=== PATIENT | female | born 1950 | race Caucasian/White ===

== ENCOUNTER 2016-03-30 11:02 | Inpatient (IN) | payer OTHER ==
[2016-03-30] MEDS ORDERED: FAMOTIDINE 20 MG/NACL 50 ML IV ONE (11:20)
[2016-03-30] MEDS ORDERED: NS 1,000 ML IV ONE (11:20)
[2016-03-30] MEDS ORDERED: ONDANSETRON 4 MG/2 ML VIAL IVP ONE (11:20)
[2016-03-30 11:25] LABS: % IMMATURE GRANULYOCYTES 0.4 % (0.0-1.1); ABSOLUTE IMMATURE GRANULOCYTES 0.03 10^3/uL (0.00-0.10); ADD DIFF? NO; ADD MORPH? NO; ADD SCAN? NO; ATYPICAL LYMPHOCYTE FLAG 0 (0-99); FRAGMENT RBC FLAG 0 (0-99); HEMATOCRIT 46.3 % (38.0-47.0); HEMOGLOBIN 15.1 g/dL (12.6-16.3); LEFT SHIFT FLG 0 (0-99); LIPEMIA HEMOLYSIS FLAG 80 (0-99); MEAN CELL HEMOGLOBIN 29.4 pg (27.9-34.1); MEAN CELL HEMOGLOBIN CONCENTR. 32.6 g/dL (32.4-36.7); MEAN CELL VOLUME 90.1 fL (81.5-99.8); MEAN PLATELET VOLUME 10.2 fL (8.7-11.7); PLATELET CLUMPS FLAG 10 (0-99); PLATELET COUNT 233 10^3/uL (150-400); RED BLOOD CELL COUNT 5.14 10^6/uL (4.18-5.33); RED CELL DISTRIBUTION WIDTH 12.6 % (11.5-15.2)
[2016-03-30 11:37] LABS: ALANINE AMINOTRANSFERASE 35 IU/L (9-52); ALBUMIN 4.1 g/dL (3.5-5.0); ALKALINE PHOSPHATASE 99 IU/L (38-126); ANION GAP 15 mEq/L (8-16); ASPARTATE AMINOTRANSFERASE 26 IU/L (14-46); BILIRUBIN,TOTAL 0.9 mg/dL (0.1-1.4); BILIRUBIN-CONJUGATED 0.5 mg/dL (0.0-0.5); BILIRUBIN-UNCONJUGATED 0.4 mg/dL (0.0-1.1); CARBON DIOXIDE 28 mEq/l (22-31); CHLORIDE 99 mEq/L (97-110); CREATININE 0.8 mg/dL (0.6-1.0); GLOMERULAR FILTRATION RATE > 60; GLUCOSE 93 mg/dL (70-100); POTASSIUM 4.3 mEq/L (3.5-5.2); SODIUM 142 mEq/L (134-144); TOTAL PROTEIN 6.3 g/dL (6.3-8.2)
[2016-03-30] MEDS ORDERED: IOPAMIDOL (ISOVUE-300) 50 ML VIAL IV ONE (11:51)
--- NOTE | 2016-03-30 11:53 | EDPHY ---
H & P Time Seen by Provider: 03/30/16 11:18 HPI/ROS: HPI Vomiting, abdominal discomfort. 65-year-old female by private vehicle with her . This patient reports that 2 weeks ago she had a gastrointestinal illness which included nausea and vomiting as well as watery diarrhea for several days. She reports that most of her family members had this illness. She then started getting better. However , several days ago she developed nausea again and started vomiting after eating. She has since this time had ongoing nausea with vomiting and has not been able to keep any food down. She denies having any significant abdominal pain but describes feeling bloated and distended in her abdomen. She did have a normal bowel movement this morning. No diarrhea. No bloody or melenic stool. Describes the vomit as nonbilious and nonbloody. Prior abdominal surgical history is significant for cholecystectomy. ROS: Constitutional: No fever, no chills. No weakness. Eyes: No discharge. No changes in vision. ENT: No sore throat. No nasal congestion or rhinorrhea. Respiratory: No cough. No shortness of breath. Cardiac: No chest pain, no palpitations. Gastrointestinal: No abdominal pain, no vomiting, no diarrhea. Genitourinary: No hematuria. No dysuria or increased frequency with urination. Musculoskeletal: No back pain. No neck pain. No myalgias or arthralgias. Skin: No rashes. Neurological: No headache. No focal weakness or altered sensation. Past medical history: Melanoma, lymph node removal, cholecystectomy. Social history: Here with her . Physical Exam: General Appearance: Alert, no distress. This patient is responding to questions appropriately and in full sentences. This patient appears well- hydrated and well-nourished. Eyes: Pupils equal and round no pallor or injection. No lid edema, erythema or injection. Respiratory: There are no retractions, lungs are clear to auscultation with good air movement bilaterally. Cardiovascular: Regular rate and rhythm. No murmur. Gastrointestinal: Abdomen is feels distended but without significant tenderness on palpation, no masses, bowel sounds present. No focal tenderness at McBurney's point. No Smith sign. Neurological: Motor sensory function is grossly intact. Cranial nerves are normal. Gait is normal. Skin: Warm and dry, no rashes. Musculoskeletal: Neck is supple and nontender. Extremities are symmetrical. All joints range without pain or impingement. Psychiatric: No agitation. No depression. Database: EKG: Imaging: CT scan of abdomen and pelvis with IV contrast: Significant for a large pelvic mass which appears to be ovarian cancer measuring 22 cm x 19 cm x 14 cm. There is metastasis throughout. Results were discussed with staff radiologist Dr. Efrain Miller. Procedures: Emergency department course: IV placed. She was placed on a lines tender. She was started on IV normal saline with 500 cc to be given over the next hour. She was initially given 4 mg of IV Zofran and 20 mg of IV Pepcid for nausea. I discussed the possibility of obstruction. I discussed CT imaging with her. She endorses this plan. She will be sent for CT imaging shortly. 12:45 p.m., re-evaluated patient. Results of CT scan discussed with the patient. Probable diagnosis discussed. I discussed admission for IV fluids, antiemetics and oncology consultation. She and her endorse. 12:50 p.m., spoke with Dr. Baltazar of the Oncology Service. He or 1 of his partners will consult on this patient after she is admitted. He explained to me that she may require transfer to [facility] for a gynecologic oncological surgeon. 12:55 p.m. spoke with hospitalist., Dr. Thomas, she accepts patient for admission to Dr. Juliette Spaulding. Patient admitted to [address] [place] [address] in stable condition. Differential Diagnosis: The differential diagnosis on this patient includes but is not limited to gastritis, enteritis, bowel obstruction. This represents a partial list of diagnoses considered. These considerations are based on history, physical exam , past history, reassessment and diagnostic testing. Smoking Status: Never smoked Constitutional: Initial Vital Signs Temperature (C) 36.6 C 03/30/16 11:04 Heart Rate 104 H 03/30/16 11:04 Respiratory Rate 18 03/30/16 11:04 Blood Pressure 174/99 H 03/30/16 11:04 O2 Sat (%) 99 03/30/16 11:04 O2 Delivery Mode Room Air Allergies/Adverse Reactions: amoxicillin [Amoxicillin] Allergy (Mild, Verified 02/21/10 13:48) Rash Home Medications: Medication Instructions Recorded NK [No Known Home Meds] 03/30/16 Medical Decision Making - Data Points Laboratory Results: Laboratory Results 03/30/16 11:15 03/30/16 11:15 Microbiology Results: MICROBIOLOGY 03/30/16 22:54 Urine,Clean Catch Urine Culture - Final Five Or More [place] Types Medications Given: Discontinued Medications Sodium Chloride (Ns) 1,000 mls @ 0 mls/hr IV ONCE ONE PRN Reason: Wide Open Stop: 03/30/16 11:21 Last Admin: 03/30/16 11:20 Dose: 1,000 mls Famotidine/Sodium Chloride (Pepcid 20 Mg (Premix)) 50 mls @ 200 mls/hr IV EDNOW ONE Stop: 03/30/16 11:34 Last Admin: 03/30/16 11:42 Dose: 50 mls Ertapenem 1 gm/ Sodium (Chloride) 100 mls @ 200 mls/hr IV ONCALL ONE PRN Reason: Protocol Stop: 04/01/16 06:29 Last Admin: 04/01/16 05:34 Dose: 100 mls Ketorolac Tromethamine (Toradol) 15 mg IVP Q6 HARSHAD Stop: 04/02/16 06:01 Last Admin: 04/02/16 06:20 Dose: 15 mg Ondansetron HCl (Zofran) 4 mg IVP EDNOW ONE Stop: 03/30/16 11:21 Last Admin: 03/30/16 11:43 Dose: 4 mg Departure - Departure Disposition: [facility] Acute Clinical Impression: Vomiting, Abdominal discomfort, Pelvic mass in female, Probable ovarian cancer with metastasis Condition: Fair
--- NOTE | 2016-03-30 12:40 | CT ---
CT Scan of the Abdomen and Pelvis (With Contrast) at 1204 hours History: Abdominal pain, nausea, vomiting. History of melanoma. Technique: Axial computed tomographic images of the abdomen and pelvis were obtained with the unevent ful intravenous administration of 90 mL Isovue-300 contrast. No oral or rectal contrast, which limits the study. Dose reduction techniques were utilized. CT Abdomen Findings: Lung bases: Bilateral lung bases demonstrate multiple diffuse pulmonary nodules greater than 20 total just at the lung bases, consistent with metastasis. Liver: Multiple hepatic metastasis throughout the right and left lobes, with the largest in the right lobe measuring 4.3 x 2 cm. Biliary system: No obstruction. Spleen: Several splenic masses, consistent with metastasis, with the largest measuring 3 x 3 cm. Pancreas: Normal. Adrenals: Bilateral adrenal masses, consistent with metastasis. Right adrenal mass measures 5.1 x 5 c m and left measures 5.6 x 4 cm. Kidneys: No obstruction or solid masses. Abdominal Aorta: No aneurysm. No significant adenopathy. No bowel obstruction. CT Pelvis Findings: Complex pelvic mass measuring 22.3 x 14.5 cm in axial dimension and 19 cm in ceph alocaudal dimension with septations and several mural nodules measuring up to 5.6 x 1.8 cm, consisten t with cystadenocarcinoma. No ascites. Multiple uterine leiomyomata identified measuring up to 2.2 x 2.1 cm. No definite osseous metastasis. Impression: 1. Complex pelvic mass measuring 22.3 x 14.5 x 19 cm, consistent with cystadenocarcinoma. 2. Multiple diffuse pulmonary metastasis, hepatic metastasis, splenic metastasis, and bilateral adren al metastasis with a differential diagnosis of ovarian carcinoma metastasis versus melanoma metastasi s. 3. No ascites. Findings and recommendations discussed with Emergency Department physician, Dr. Avila Barbosa, at 1230 hours today. Final report concurs with initial preliminary interpretation. A test result has been communicated to a licensed care provider and documented in [employer], 12:36:11 P M, 03/30/2016, [employer] Message ID [id number].
[2016-03-30] MEDS ORDERED: ACETAMINOPHEN 325 MG TAB PO PRN (15:52)
[2016-03-30] MEDS ORDERED: PROMETHAZINE HCL 25 MG TAB PO PRN (15:52)
--- NOTE | 2016-03-30 16:35 | GHP ---
[f rep st] HISTORY AND PHYSICAL DATE OF ADMISSION: 03/30/2016 CHIEF COMPLAINT: Nausea, vomiting. HISTORY OF PRESENT ILLNESS: The patient is a very nice 65-year-old with a history significant for melanoma. She was diagnosed 7 years ago in her right calf, had excisional treatment, noted some recurrence in her lymph nodes in her right groin and underwent a month of interferon. She had been followed by Dr. Colunga, but since then, has been in remission. Over [place], she developed nausea, vomiting, diarrhea. Her whole family was sick with what sounds like a gastroenteritis. Despite her family all recovering , she continued to feel poorly. She said that she has had ongoing nausea, vomiting, poor appetite and some fatigue. She started to feel a little better and then got worse again, a little better, it got worse. Last night, she had another episode of nausea and vomiting and opted to come in this morning for further evaluation and treatment. She denies fevers, chills. She has had no cough, shortness of breath. No significant abdominal pain except when she is actively vomiting. No diarrhea. No urinary complaints. No weight changes. Prior to , she said she was feeling well and had no abdominal complaints. REVIEW OF SYSTEMS: A 10-point review of systems was done and is negative except as stated in the HPI. PAST SOCIAL HISTORY: Melanoma, cholecystectomy. SOCIAL HISTORY: She is . No known tobacco or alcohol use. FAMILY HISTORY: Mother had cancer, 2 cousins with cancer. She does not recall what kind. MEDICATIONS: None. ALLERGIES: Amoxicillin. PHYSICAL EXAMINATION: VITAL SIGNS: She is afebrile. Heart rate 90, blood pressure 147/78, respirations 18, she is 92% on room air. GENERAL: She is a very pleasant, 65-year-old woman in no distress. She is alert and oriented. Her speech is clear and fluent. HEENT: Scalp is atraumatic. Pupils equal. Extraocular movements intact. Mucous membranes are slightly dry. Oropharynx clear. NECK: Supple. No adenopathy. HEART: Regular rate and rhythm. No murmurs, gallops, or rubs. LUNGS: Clear to auscultation. No wheezes, rhonchi , or rales. ABDOMEN: Slightly distended. No tenderness. Some firmness in her pelvic area, but no obvious masses. Positive bowel sounds. EXTREMITIES: No clubbing, cyanosis, or edema. She does have a scar in her right calf area where her melanoma was previously excised. MUSCULOSKELETAL: No joint effusions or deformities. SKIN: Intact, no rash. NEUROLOGIC: She is intact. LABORATORY DATA: CBC and chemistries are all within normal limits. LFTs are normal. Abdominal CT scan: Complex pelvic mass measuring 22 x 14 x 19 cm consistent with cysto adenocarcinoma with multiple diffuse pulmonary metastases , hepatic metastases, splenic metastases and bilateral adrenal metastases. Differential diagnosis is ovarian carcinoma versus melanoma. ASSESSMENT/PLAN: A 65-year-old with a previous history of melanoma presents with large pelvic mass and metastatic disease. She is being admitted for control of her nausea and vomiting. 1. Nausea, vomiting. Will admit for symptomatic control. Give IV fluids. Advance her diet as tolerated. Antiemetics as needed. She really has no abdominal pain at this time, but will make pain medications available if needed. 2. Large pelvic mass with metastatic disease. Differential includes likely ovarian primary versus recurrent melanoma. We will discuss with Dr. Baltazar. Will check a CA-125. If that is significantly elevated, would likely discharge and have her follow up with a gynecology oncologist in [place] versus biopsy for possible recurrent melanoma. 3. Deep venous thrombosis prophylaxis. Patient is under observation here. Certainly if she has an extended stay, will start her on low-molecular heparin. In the meantime, will hold prophylaxis in case she needs a biopsy. /[id number]/MODL MTDD
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
[2016-03-30] MEDS: NS 1,000 ML IV SCH (22:01)
[2016-03-30 22:45] LABS: COLOR AMBER; LEUKOCYTE ESTERASE,URINE 2+ (NEGATIVE); NITRITE,URINE NEGATIVE (NEGATIVE)
[2016-03-30 22:50] LABS: MUCUS TRACE /lpf (NONE-1+); RBC,URINE 50-182 /hpf (0-3); WBC,URINE 50-182 /hpf (0-3)
[2016-03-31 06:18] LABS: LACTATE DEHYDROGENASE 1203 IU/L (313-618)
[2016-03-31] MEDS: ONDANSETRON DISINTEGRATING 4 MG TAB PO PRN ×4 (06:27→22:32)
--- NOTE | 2016-03-31 06:51 | SOAPPROG ---
[facility] Progress Note Assessment/Plan: Assessment: 1.) Hx. of Malignant Melanoma, 09/2008, [id number], S/P R inguinal Lymphadenectomy, S/P brief adjuvant high dose SQ Interferon therapy ( 1 month). 2.) Multiple lung, liver, adrenal mets, with intra-abdominal lymphadenopathy and large cystic pelvic mass with high LDH and low Ca-125: This most certainly looks like recurrent, widely disseminated melanoma. Pt. needs tissue biopsy and studies for laundry route driver mutations on sample obtained. She is a good candidate for CT guided liver bx. or Adrenal bx. as discussed with Kristen this AM. She also needs Brain MRI with and without contrast as part of her metastatic work up. Plan: 1. ) Biopsy as noted above. Could also have surgical bx. as another option. 2.) Will order brain MRI today 3.) Following biopsy, pt. could go home, awaiting bx. results if she is taking in adequate fluids/calories as d/w patient this AM. 03/31/16 06:51 Subjective: Stable overnight, without new sx. Objective: VSS, Afebrile overnight HEENT- anicteric, no oral lesions. Neck- supple Chest- clear CVS- RSR, no extra HS ABD- soft, not, mild distention in lower abdomen at midline EXT- R leg Lymphadenectomy site is unremarkable, without new lymphadenopathy, No suspicious lesions on RLE Lab data: CA 125 18 LDH > 1200 Vital Signs Temp Pulse Resp BP Pulse Ox 36.8 C 79 14 156/82 H 91 L 03/31/16 04:27 03/31/16 04:27 03/31/16 04:27 03/31/16 04:27 03/31/16 04:27 03/30/16 03/31/16 04/01/16 05:59 05:59 05:59 Intake Total 1722 Output Total 225 Balance 1497 ICD10 Worksheet Patient Problems: Problems Problem Status Diagnosed Abdominal discomfort Acute Pelvic mass in female Acute Vomiting Acute
--- NOTE | 2016-03-31 08:48 | SOAPPROG ---
SOAP Progress Note Assessment/Plan: Assessment/Plan: 65 Y F c hx of melanoma and wide excision with R groin LN dissection, now with multiple masses on imaging--large pelvic mass, multiple hepatic, splenic, adrenal, and pulmonary masses. Does not appear to be obstructed. Seen and examined with Dr. Alicea and d/w'ed medicine and oncology. Plan for ex- laparoscopy with biopsy, possible laparotomy, possible excision of pelvic mass tomorrow. Awaiting OR time. NPO p midnight. Pre op Invanz ordered. Hold any chemical VTE ppx. Consent in chart. Risks and options discussed and she requests to proceed. 03/31/16 08:44 Subjective: [place] flu like symptoms that lasted too long. Comfortable now and eating breakfast. Objective: Vital Signs Temp Pulse Resp BP Pulse Ox 36.7 C 90 16 146/84 H 91 L 03/31/16 08:17 03/31/16 08:17 03/31/16 08:17 03/31/16 08:17 03/31/16 08:17 03/30/16 03/31/16 04/01/16 05:59 05:59 05:59 Intake Total 1722 Output Total 225 50 Balance 1497 -50 alert, nad mmm no jaundice no wob abd soft, large palpable mass ICD10 Worksheet Patient Problems: Problems Problem Status Diagnosed Abdominal discomfort Acute Pelvic mass in female Acute Vomiting Acute
[2016-03-31] MEDS ORDERED: GADOBUTROL 10 ML VIAL IVP ONE (08:53)
[2016-03-31] MEDS: ONDANSETRON 4 MG/2 ML VIAL IVP PRN (10:47)
--- NOTE | 2016-03-31 11:04 | HOSPPROG ---
Hospitalist Progress Note Assessment/Plan: 65-year-old woman with a history of melanoma remotely presents with abdominal pain and found to have a large pelvic mass with diffuse metastatic disease noted on her CT scan. # metastatic cancer most likely etiology is metastatic melanoma. * Discussed with Dr. Alicea who will proceed with biopsy confirmation * Discussed with Dr. Baltazar regarding further treatment options * Patient comfortable main complaint is poor appetite and some low-grade nausea Subjective: No new complaints. Still having some low-grade nausea and abdominal discomfort but able to eat a good breakfast today. Objective: Vital Signs Temp Pulse Resp BP Pulse Ox 36.7 C 90 16 146/84 H 91 L 03/31/16 08:17 03/31/16 08:17 03/31/16 08:17 03/31/16 08:17 03/31/16 08:17 03/30/16 03/31/16 04/01/16 05:59 05:59 05:59 Intake Total 1722 Output Total 225 50 Balance 1497 -50 - Physical Exam Constitutional: no apparent distress Eyes: PERRL Ears, Nose, Mouth, Throat: moist mucous membranes Cardiovascular: regular rate and rhythym, no murmur, rub, or gallop Respiratory: no respiratory distress, reduced air movement Gastrointestinal: normoactive bowel sounds, tenderness (Mild), No guarding, No rebound Neurologic: AAOx3 Psychiatric: interacting appropriately ICD10 Worksheet Patient Problems: Problems Problem Status Diagnosed Abdominal discomfort Acute Pelvic mass in female Acute Vomiting Acute
--- NOTE | 2016-03-31 11:12 | MR ---
MRI of the Brain (Without and With Contrast) 0901 hours Clinical Indication: Metastatic melanoma. Technique: T1-weighted images were acquired axially and sagittally from the foramen magnum to the ve rtex. Axial fast inversion recovery, fast T2-weighted, and diffusion-weighted axial images were obta ined without contrast. Postcontrast axial and coronal images with the uneventful intravenous administ ration of 8 mL Gadavist contrast. Findings: Throughout bilateral cerebral hemispheres, brainstem and bilateral cerebellar hemispheres, there are greater than 20 intraparenchymal metastatic lesions demonstrating hemosiderin consistent w ith melanoma metastases. The majority involve bilateral cerebral hemispheres. There is one metastasis in the right side of the adonis measuring 8 mm. A few metastases in bilateral cerebellar hemispheres. All of the lesions demonstrate hemosiderin compatible with melanoma. Several of the lesions demonstra te surrounding white matter edema. All of the lesions enhance on the postcontrast study. There is an additional 5 mm enhancing lesion in the left superior cerebellar peduncle. No acute infarct, midline shift, hydrocephalus, herniation, or epidural/subdural hematomas. Pituitary gland is normal in size. Cerebellar tonsils are in normal position. Normal flow voids of superior sa gittal sinus, basilar artery and bilateral internal carotid arteries indicating patency. Paranasal si nuses are clear. Orbits are unremarkable. Impression: 1. Diffuse bilateral cerebral, cerebellar, and adonis enhancing hemorrhagic melanoma metastasis, more t graham 20. 2. No hydrocephalus, herniation, or acute infarct. Findings and recommendations discussed with Dr. Juliette Spaulding at 1101 hours today. Final report concurs with initial preliminary interpretation.
[2016-03-31] MEDS: NS 1,000 ML IV SCH (13:30)
[2016-03-31] MEDS ORDERED: SIMETHICONE 80 MG TAB CHEW PO PRN (13:31)
[2016-04-01] MEDS: ONDANSETRON 4 MG/2 ML VIAL IVP PRN (05:34)
[2016-04-01] MEDS ORDERED: ERTAPENEM 1 GM in NS 100 ML IV ONE (06:00)
[2016-04-01] MEDS ORDERED: BUPIVACAINE 0.5% 30 ML SDV ONE (07:07)
[2016-04-01] MEDS ORDERED: HEPARIN 1000 UNIT/1 ML MDV ONE (07:07)
[2016-04-01] MEDS ORDERED: ceFAZolin 1 GM/5 ML SYR ONE (07:08)
[2016-04-01] MEDS ORDERED: LIDOCAINE 1% 5 ML SDV ONE (07:58)
[2016-04-01] MEDS ORDERED: MIDAZOLAM 2 MG/2 ML VIAL ONE (08:27)
[2016-04-01] MEDS ORDERED: PROPOFOL 200 MG/20 ML VIAL ONE (08:30)
[2016-04-01] MEDS ORDERED: fentaNYL 100 MCG/2 ML INJ ONE ×3 (08:30→10:10)
[2016-04-01] MEDS ORDERED: LIDOCAINE 2% 5 ML SDV ONE (08:34)
[2016-04-01] MEDS ORDERED: ROCURONIUM 100 MG/10 ML VIAL ONE (08:34)
[2016-04-01] MEDS ORDERED: DEXAMETHASONE 4 MG/ML VIAL ONE ×2 (08:34)
[2016-04-01] MEDS ORDERED: ONDANSETRON 4 MG/2 ML VIAL ONE (08:34)
[2016-04-01] MEDS ORDERED: PHENYLEPHRINE HCL 100 MCG/ML SYR ONE (09:04)
[2016-04-01] MEDS ORDERED: BUPIVACAINE 0.25% 30 ML SDV ONE (09:53)
[2016-04-01] MEDS ORDERED: SUGAMMADEX SODIUM 200 MG/2 ML VIAL IVP ONE (09:54)
[2016-04-01] MEDS ORDERED: KETOROLAC 30 MG/1 ML SDV ONE (10:00)
[2016-04-01] MEDS ORDERED: NARCOTIC DRIP BAG-TOTAL ALL TYPES EP PRN ×2 (10:49→10:58)
[2016-04-01] MEDS ORDERED: NALOXONE HCL 0.4 MG/ML INJ IVP PRN (10:49)
[2016-04-01] MEDS ORDERED: HYDROmorph 10MCG/ML&BUP 0.1% in 100ML NS EP SCH (10:49)
[2016-04-01] MEDS ORDERED: diphenhydrAMINE 25 MG CAP PO PRN (10:58)
[2016-04-01] MEDS ORDERED: ONDANSETRON 4 MG/2 ML VIAL IVP PRN (10:58)
--- NOTE | 2016-04-01 11:19 | POSTOPPROG ---
Post Op Note Date of Operation: 04/01/16 Surgeon: Shaun Alicea First Aid Director: Alessandra Puentes Anesthesiologist: Mir Brantley Anesthesia: GET(General Endotracheal) Pre-op Diagnosis: likely metastatic melanoma, pelvic mass Post-op Diagnosis: same, and R ovarian cyst with gross melanoma mets Procedure: ex-laparoscopy, laparotomy, c liver biopsy, R oopherectomy Findings: hepatic and peritoneal mets, loculated R ovarian cyst c mets, 3000cc Inf/Abcess present in the surg proc area at time of surgery?: No EBL: Minimal Complications: none Specimen(s): L lateral segment liver mass and R ovary c cyst to pathology, also cyst fluid to cytology
[2016-04-01] MEDS: KETOROLAC 15 MG/1 ML SDV IVP SCH ×2 (12:46→17:12)
--- NOTE | 2016-04-01 19:16 | HOSPPROG ---
Hospitalist Progress Note Assessment/Plan: Assessment/Plan: 65-year-old woman presents with acute abdominal pain in the setting of recurrent , metastatic melanoma # metastatic melanoma. Has evidence of brain metastases on MRI with mild hemorrhage but no hydronephrosis or brain compressive edema, has evidence of intra-abdominal mass -status post biopsy and surgery for intra-abdominal mass by Dr. Alicea today, postop day 0 -patient and family currently awaiting follow-up conversation with oncology regarding the staging and appropriate treatment moving forward -manage symptoms of nausea and pain as needed -pain management via indwelling epidural catheter # suspected asymptomatic bacteriuria. Evidenced by positive urinalysis, urine culture currently pending, no urinary symptoms -continue to monitor urine culture -currently has indwelling David catheter postoperatively, will remove as soon as deemed appropriate by Dr. Alicea Diet. Regular Prophylaxis. High risk patient, SCDs, pharmacologic prophylaxis contraindicated given hemorrhagic lesions on MRI Code. Full Disposition. Anticipated discharge uncertain this time, pending any further inpatient chemotherapy or surgical intervention. Subjective: Patient feels like she tolerated the surgery well, continues to have indwelling epidural catheter Objective: Vital Signs Temp Pulse Resp BP Pulse Ox 36.4 C 73 16 137/70 H 97 04/01/16 15:20 04/01/16 15:20 04/01/16 15:20 04/01/16 15:20 04/01/16 15:20 03/31/16 04/01/16 04/02/16 05:59 05:59 05:59 Intake Total 1485 1689 Output Total 100 1090 Balance 1385 599 - Physical Exam Constitutional: no apparent distress, appears nourished, not in pain, No uncomfortable Cardiovascular: regular rate and rhythym, no murmur, rub, or gallop Respiratory: no respiratory distress, no rales or rhonchi, clear to auscultation Gastrointestinal: No normoactive bowel sounds (Hypoactive bowel), No tenderness , No guarding, No distension Genitourinary: no bladder fullness, no bladder tenderness, david in urethra Neurologic: AAOx3, sensation intact bilaterally, No weakness Psychiatric: interacting appropriately, not anxious, not encephalopathic, thought process linear ICD10 Worksheet Patient Problems: Problems Problem Status Diagnosed Abdominal discomfort Acute Pelvic mass in female Acute Vomiting Acute
[2016-04-02] MEDS: KETOROLAC 15 MG/1 ML SDV IVP SCH ×2 (00:16→06:20)
[2016-04-02 06:14] LABS: % IMMATURE GRANULYOCYTES 0.6 % (0.0-1.1); ABSOLUTE IMMATURE GRANULOCYTES 0.03 10^3/uL (0.00-0.10); ADD DIFF? NO; ADD MORPH? NO; ADD SCAN? NO; ATYPICAL LYMPHOCYTE FLAG 10 (0-99); FRAGMENT RBC FLAG 0 (0-99); HEMATOCRIT 37.3 % (38.0-47.0); HEMOGLOBIN 11.9 g/dL (12.6-16.3); LEFT SHIFT FLG 0 (0-99); LIPEMIA HEMOLYSIS FLAG 80 (0-99); MEAN CELL HEMOGLOBIN 29.5 pg (27.9-34.1); MEAN CELL HEMOGLOBIN CONCENTR. 31.9 g/dL (32.4-36.7); MEAN CELL VOLUME 92.3 fL (81.5-99.8); MEAN PLATELET VOLUME 11.2 fL (8.7-11.7); PLATELET CLUMPS FLAG 0 (0-99); PLATELET COUNT 142 10^3/uL (150-400); RED BLOOD CELL COUNT 4.04 10^6/uL (4.18-5.33); RED CELL DISTRIBUTION WIDTH 12.7 % (11.5-15.2)
[2016-04-02 06:33] LABS: ANION GAP 9 mEq/L (8-16); CALCIUM 7.8 mg/dL (8.5-10.4); CARBON DIOXIDE 24 mEq/l (22-31); CHLORIDE 106 mEq/L (97-110); CREATININE 0.6 mg/dL (0.6-1.0); GLOMERULAR FILTRATION RATE > 60; GLUCOSE 73 mg/dL (70-100); POTASSIUM 4.2 mEq/L (3.5-5.2); SODIUM 139 mEq/L (134-144)
--- NOTE | 2016-04-02 08:05 | SOAPPROG ---
SOAP Progress Note Assessment/Plan: Assessment: 1.) Hx. of Malignant Melanoma, 09/2008, [id number], S/P R inguinal Lymphadenectomy, S/P brief adjuvant high dose SQ Interferon therapy ( 1 month). 2.) Multiple lung, liver, adrenal mets, with intra-abdominal lymphadenopathy and large cystic pelvic mass with high LDH and low Ca-125: This most certainly looks like recurrent, widely disseminated melanoma. Now post op day 1 after liver biopsy and biopsy of large cystic mass. MRI of the brain shows up to 20 brain mets, some with edema. Plan: 1. ) Will discuss brain MRI findings and will start dexamethasone and place Radiation Oncology Consult. 2.) Await surgical biopsy results as discussed with patient and her . 3.) Discharge home when feasible, post op, for Radiation Oncology and Medical Oncology follow up. 04/02/16 08:05 Subjective: Tolerated surgery well yesterday and reports no new sx. Feels hungry this AM. Objective: VSS, afebrile, this AM. HEENT- anicteric, no oral lesions, no facial assymetry Neck- supple Chest- clear anteriorly CVS- RSR, no extra HS ABD-soft, NT , BS+, midline incision is bandaged and dry. EXT- SCD in place Labs- Hgb 11/9, PLT 142,000 BUN/CR 5/ 0.6 Glu 73 MRI of the brain shows many sites consistent with brain metastases, some with surrounding edema. See report. Vital Signs Temp Pulse Resp BP Pulse Ox 37.1 C 78 18 127/76 H 97 04/02/16 04:51 04/02/16 04:51 04/02/16 04:51 04/02/16 04:51 04/02/16 04:51 Laboratory Results 04/02/16 04:57 04/02/16 04:57 04/01/16 04/02/16 04/03/16 05:59 05:59 05:59 Intake Total 1483 1279 Output Total 100 2290 Balance 1382 539 ICD10 Worksheet Patient Problems: Problems Problem Status Diagnosed Abdominal discomfort Acute Pelvic mass in female Acute Vomiting Acute
[2016-04-02] MEDS ORDERED: REGARDING ANTICOAG MISC SCH (09:00)
[2016-04-02] MEDS ORDERED: DC NARCS MISC SCH (09:00)
--- NOTE | 2016-04-02 12:36 | SOAPPROG ---
SOAP Progress Note Assessment/Plan: Assessment: 65yo female s/p laparoscopy laparotomy for likely metastatic melanoma, path pending tolerating regular diet very well, passing gas, no BM yet, pain minimal PE awake alert comfortable Chest CTA B/L abdomen incisions clean/dry, mild distension, soft, nontender to palpation Plan: path pending 04/02/16 12:34 Objective: Vital Signs Temp Pulse Resp BP Pulse Ox 36.5 C 71 18 130/72 H 95 04/02/16 12:32 04/02/16 12:32 04/02/16 12:32 04/02/16 12:32 04/02/16 12:32 Laboratory Results 04/02/16 04:57 04/02/16 04:57 04/01/16 04/02/16 04/03/16 05:59 05:59 05:59 Intake Total 1485 2829 Output Total 100 2290 Balance 1386 539 ICD10 Worksheet Patient Problems: Problems Problem Status Diagnosed Abdominal discomfort Acute Pelvic mass in female Acute Vomiting Acute
--- NOTE | 2016-04-02 13:21 | GCON ---
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 She was recently hospitalized with intractable nausea, increase in abdominal girth, and was found to have widespread metastatic recurrence of her melanoma, including a brain MRI that shows at least 20 intracranial metastases. She was seen by Dr. Gordon Baltazar in consult, who has requested that we visit with her to discuss the role of palliative radiation to her brain. HISTORY OF PRESENT ILLNESS: Once again, Kristen was initially diagnosed with a cutaneous malignant melanoma of her right calf in September 2008. She had a wide local excision and skin grafting and dissection of her inguinal lymph nodes. She was a T3b N2a diagnosis and received adjuvant high-dose interferon in 2008 under the care of Dr. Kirk Colunga. She was followed thereafter and not found to have any sites of distal metastasis or local recurrence and was instructed to follow up with her lead informatica developer on a regular basis, which she failed to do. Prior to her admission to the hospital, Kristen experienced nausea, vomiting, and increase in abdominal girth since just prior to the holiday. This gradually became worse and was initially thought to be gastroenteritis as other members of the family were also having similar symptoms. This week, she developed significant worsening of her symptoms and went to the emergency department. A CT scan of her abdomen and pelvis was performed with IV contrast. This demonstrated a complex pelvic mass measuring 22.3 x 14.5 x 19 cm , consistent with a cyst adenocarcinoma. She had multiple diffuse pulmonary metastases, hepatic mass, splenic metastases as well as bilateral adrenal metastases with a differential diagnosis of ovarian carcinoma versus metastatic melanoma. There was no ascites. Out of concern that this was related to her prior history of malignant melanoma, Dr. Baltazar recommended an MRI of the brain. This showed diffuse bilateral cerebral, cerebellar, and adonis enhancing hemorrhagic melanoma metastases, more than 20. There was no hydrocephalus, herniation, or acute infarct. On April 01, 2016, she underwent surgery by Dr. Alicea, who performed an exploratory laparoscopy, laparotomy with liver biopsy, and right oophorectomy with removal of her large cyst that was loculated and measured 3 L in volume. We are still awaiting pathology on the liver biopsy as well as the ovarian cyst pathology. INTERVAL HISTORY: Since her surgery yesterday, Kristen overall feels well. As I am meeting with her today, Anesthesia is discontinuing her epidural and is pulling it out during this visit. She has otherwise denied any pain, although the epidural has been in place. She has been in bed completely since the operation yesterday and has really been unable to move around because of the epidural. She says the surgery went very well. She denies any headaches, nausea, vomiting, and any focal neurologic deficits or any seizure-like activity. Prior to this, she denied any changes at all aside from the nausea and vomiting. REVIEW OF SYSTEMS: A complete review of systems was obtained and is negative except as mentioned above. PAST MEDICAL HISTORY: Malignant melanoma, as detailed above. Otherwise, she has been healthy and in her normal state of health. PAST SURGICAL HISTORY: Cholecystectomy in 2008. Otherwise, no major operations aside from the wide local excision of her right calf melanoma and right inguinal lymph node dissection. FAMILY HISTORY: No family history of malignancy. SOCIAL HISTORY: She currently lives with her in [place], who is here in the hospital with her as well as her daughter. She denies any alcohol or tobacco use. She worked as a cleric for a number of years. She does have social and family support nearby. MEDICATIONS: 1. Tylenol. 2. Benadryl. 3. Zofran. 4. Promethazine. 5. Simethicone. 6. Toradol. ALLERGIES: Amoxicillin. PHYSICAL EXAMINATION: VITAL SIGNS: Blood pressure 114/60, respiratory rate 16 , oxygen sat 96%, temp 36.7. GENERAL: Kristen is lying comfortably in bed with no obvious pain. Once again, the epidural catheter was just removed. She is in no acute distress. HEAD AND NECK: Oropharynx and oral cavity within normal limits with moist mucous membranes and no masses. CARDIOVASCULAR: Regular rate and rhythm. Normal S1, S2. No murmurs, rubs, or gallops. LUNGS: Clear to auscultation bilaterally. No wheeze, crackles, or rubs. ABDOMEN: Exam deferred given recent operation and bandages in place. EXTREMITIES: Warm and well perfused. 2+. No clubbing, cyanosis, or edema. NEURO: Cranial nerves 2- 12 are intact. 5/5 strength. Sensation to light touch is intact of the bilateral upper extremities. Lower extremity exam deferred given recent epidural placement. IMAGING: Please see HPI above for recent CT scan and MRI of the brain, which I have personally reviewed in detail and discussed the results with Kristen and her family. PATHOLOGY: Previous history of metastatic melanoma. Pathology from recent liver biopsy and right ovarian cyst removal is pending. ASSESSMENT AND PLAN: Kristen Rivero is a 65-year-old woman with a prior history of malignant melanoma of her calf status post wide local excision, inguinal lymph node dissection followed by adjuvant interferon, who recent was hospitalized for intractable nausea and vomiting and found to have diffuse likely metastatic recurrence of her melanoma with a brain MRI showing at least 20 metastases. We are being consulted for the role of palliative whole brain radiation. I had a long discussion with Kristen and her family today in the hospital regarding her recent symptoms and thorough review of her imaging. This does appear to be widespread, diffusely metastatic recurrence of her melanoma. Encouragingly, she has been asymptomatic from a neurologic standpoint but does have an MRI demonstrating at least 20 contrast enhancing and some hemorrhagic masses throughout the cerebrum and cerebellum of her brain. Without biopsy evidence, this does appear to be spread of her melanoma to her brain. Dr. Baltazar has started her on low-dose dexamethasone, which I certainly agree with, with the hopes of decreasing the small amount of cerebral edema around some of these metastases. In terms of treatment options, they, in general range, from surgical resection, whole brain radiation, stereotactic radiosurgery or symptomatic supportive care with steroids and pain management. Given the number and location of these lesions, surgical treatment and stereotactic radiosurgery are not options and therefore I would recommend a palliative course of whole brain radiation to 30 Gy in 10 fractions over a course of approximately 2 weeks. Given the fact that she is asymptomatic and is controlled on steroids, I do not think it is emergent that we start her radiation today. Furthermore, yesterday, she had fairly aggressive surgery and just had the epidural removed during my visit today, and I would rather her heal up a little bit and attempt to plan her radiation tomorrow. My goal is to start her treatment on April 06 for a total of 10 fractions. We discussed the risks, benefits, and toxicity of whole brain radiation. Acute toxicity would include, but not limited to, fatigue, hair loss, headaches, nausea, vomiting, progressive neurologic deficits such as weakness in the arm or leg, seizures. Long-term side effects would include neurocognitive decline, memory loss, permanent damage to the surrounding brain, permanent hair loss, and a small risk of a radiation-associated malignancy. After our discussion today, Kristen wishes to proceed with radiation planning and delivery. I will see her back tomorrow, April 03, 2016, potentially as an outpatient once she is discharged, if she is able and stable to be discharged. Otherwise, I will see her in the hospital and begin planning her radiation. I did exchange my contact information. If she has any questions or concerns, she was encouraged to call our department for assistance. We will arrange transport for tomorrow for her planning. /[id number]/MODL MTDD
--- NOTE | 2016-04-02 14:05 | POSTANESTH ---
Post Anesthetic Evaluation Cardiovascular Status: Normal, Stable Respiratory Status: Normal, Stable Level of Consciousness/Mental Status: Can Participate in Eval Pain Control: Adequate, Prn Tx Ordered Nausea/Vomiting Control: Adequate, Prn Tx Ordered Complications Possibly Related to Anesthesia: None Noted (discussed goals with patient, excellent analgesia, epidural removed.)
[2016-04-02] MEDS ORDERED: D50W 25 GM/50 ML SYR IVP PRN (16:28)
[2016-04-02] MEDS ORDERED: PROMETHAZINE HCL 25 MG/ML INJ IVP PRN (16:33)
--- NOTE | 2016-04-02 16:33 | HOSPPROG ---
Hospitalist Progress Note Assessment/Plan: Assessment/Plan: 65-year-old woman presents with acute abdominal pain in the setting of recurrent , metastatic melanoma # metastatic melanoma. Has evidence of brain metastases on MRI with mild hemorrhage but no hydronephrosis or brain compressive edema, has evidence of intra-abdominal mass -status post biopsy and surgery for intra-abdominal mass by Dr. Alicea today, postop day 1 -plan for XRT mapping tomorrow as outpt -f/u w/ Dr. Colunga -manage symptoms of nausea and pain as needed, has ongoing nausea and vomiting, managing with IV antiemetics -bowel regimen ordered -started on PO dex 4mg 2xd today, ISS as needed, get HA1c -dc david # suspected asymptomatic bacteriuria. Evidenced by positive urinalysis, urine culture currently pending, no urinary symptoms -continue to monitor urine culture Diet. Regular Prophylaxis. High risk patient, SCDs, pharmacologic prophylaxis contraindicated given hemorrhagic lesions on MRI Code. Full Disposition. Anticipated discharge 04/03, requiring ongoing inpatient care for post-op wound/surg mgmt Subjective: Patient reports no bowel movements, David catheter remains in place Objective: Vital Signs Temp Pulse Resp BP Pulse Ox 36.8 C 78 16 112/67 93 04/02/16 15:52 04/02/16 15:52 04/02/16 15:52 04/02/16 15:52 04/02/16 15:52 Laboratory Results 04/02/16 04:57 04/02/16 04:57 04/01/16 04/02/16 04/03/16 05:59 05:59 05:59 Intake Total 1485 2829 Output Total 100 2290 Balance 1385 539 - Pending Discharge Pending Discharge Within 24 Hours: Yes Pending Discharge Date: 04/03/16 Pending Discharge Time: 11:00 - Physical Exam Constitutional: no apparent distress, appears nourished, not in pain Cardiovascular: regular rate and rhythym, no murmur, rub, or gallop, No irregularly irregular, No edema Respiratory: no respiratory distress, no rales or rhonchi, clear to auscultation Gastrointestinal: normoactive bowel sounds, tenderness (Mild at surgical site), No guarding, No distension Skin: no fluctuance, no induration, other (No erythema around the surgical site , no ecchymosis) Neurologic: AAOx3, sensation intact bilaterally Psychiatric: interacting appropriately, not anxious, not encephalopathic, thought process linear ICD10 Worksheet Patient Problems: Problems Problem Status Diagnosed Abdominal discomfort Acute Pelvic mass in female Acute Vomiting Acute
[2016-04-02] MEDS ORDERED: LACTULOSE 20 GM/30 ML UDCUP PO PRN (16:34)
[2016-04-02] MEDS ORDERED: MAGNESIUM HYDROXIDE 30 ML UDCUP PO PRN (16:34)
[2016-04-02] MEDS ORDERED: POLYETHYLENE GLYCOL 3350 17 GM PKT PO PRN (16:34)
[2016-04-02] MEDS ORDERED: BISACODYL 10 MG SUPP PR PRN (16:34)
[2016-04-02] MEDS ORDERED: LORazepam 2 MG/ML INJ IVP PRN (16:47)
[2016-04-02] MEDS ORDERED: LORazepam 0.5 MG TAB PO PRN (16:47)
[2016-04-02] MEDS: INSULIN REGULAR HUMAN 100 UNIT/ML SC SCH ×2 (17:49→21:15)
[2016-04-02] MEDS: DEXAMETHASONE 4 MG TAB PO SCH ×2 (17:49→20:52)
[2016-04-02] MEDS: SENNOSIDES/DOCUSATE SODIUM TAB PO SCH (20:52)
[2016-04-03 05:38] LABS: % IMMATURE GRANULYOCYTES 0.8 % (0.0-1.1); ABSOLUTE IMMATURE GRANULOCYTES 0.04 10^3/uL (0.00-0.10); ADD DIFF? NO; ADD MORPH? NO; ADD SCAN? NO; ATYPICAL LYMPHOCYTE FLAG 0 (0-99); FRAGMENT RBC FLAG 0 (0-99); HEMATOCRIT 39.5 % (38.0-47.0); HEMOGLOBIN 12.8 g/dL (12.6-16.3); LEFT SHIFT FLG 0 (0-99); LIPEMIA HEMOLYSIS FLAG 80 (0-99); MEAN CELL HEMOGLOBIN 29.4 pg (27.9-34.1); MEAN CELL HEMOGLOBIN CONCENTR. 32.4 g/dL (32.4-36.7); MEAN CELL VOLUME 90.8 fL (81.5-99.8); MEAN PLATELET VOLUME 10.8 fL (8.7-11.7); PLATELET CLUMPS FLAG 0 (0-99); PLATELET COUNT 153 10^3/uL (150-400); RED BLOOD CELL COUNT 4.35 10^6/uL (4.18-5.33); RED CELL DISTRIBUTION WIDTH 12.9 % (11.5-15.2)
[2016-04-03 07:52] VITALS: BP 139/79; PULSE 83; RESP 16; TEMP 97.6; O2SAT 93
--- NOTE | 2016-04-03 08:26 | SOAPPROG ---
SOAP Progress Note Assessment/Plan: Assessment: 1.) Hx. of Malignant Melanoma, 09/2008, [id number], S/P R inguinal Lymphadenectomy, S/P brief adjuvant high dose SQ Interferon therapy ( 1 month). 2.) Multiple lung, liver, adrenal mets, with intra-abdominal lymphadenopathy and large cystic pelvic mass with high LDH and low Ca-125: This most certainly looks like recurrent, widely disseminated melanoma. Now post op day 2 after liver biopsy and biopsy of large cystic mass. MRI of the brain shows up to 20 brain mets, some with edema. Plan: 1. ) Reviewed MRI findings/Rad. Oncology input and plans for Rad. Tx, with Rad. Tx planning this afternoon. Continue Dex. 4 mg BID 2.) Await surgical biopsy results as discussed with patient and her . 3.) Discharge home today, for Radiation Oncology and Medical Oncology follow up. Pt. has Med. Onc. appt. for discussion of systemic Tx. Obviously, we need to await tissue diagnosis and details of potential rail car driver mutation assays. 04/03/16 08:24 Subjective: Had emesis x 1 yesterday, but feeling better now and has adequate control of nausea and pain. Looking forward to going home. Objective: as noted here, VSS, Afebrile. Pt. sitting upright in chair, alert, talkative and apparently feeling well. at bedside. Lab- as noted here: glucose 73 Vital Signs Temp Pulse Resp BP Pulse Ox 36.4 C 83 16 139/79 H 93 04/03/16 07:51 04/03/16 07:51 04/03/16 07:51 04/03/16 07:51 04/03/16 07:51 Laboratory Results 04/03/16 04:53 04/02/16 04:57 04/02/16 04/03/16 04/04/16 05:59 05:59 05:59 Intake Total 2826 800 Output Total 2290 1100 Balance 539 -300 ICD10 Worksheet Patient Problems: Problems Problem Status Diagnosed Abdominal discomfort Acute Pelvic mass in female Acute Vomiting Acute
[2016-04-03] MEDS: DEXAMETHASONE 4 MG TAB PO SCH (09:37)
[2016-04-03] MEDS: SENNOSIDES/DOCUSATE SODIUM TAB PO SCH (09:37)
--- NOTE | 2016-04-03 10:32 | PDDCSUM ---
Discharge Summary Discharge Summary: DISCHARGE SUMMARY FOLLOW-UP ITEMS: 1. Surgical biopsies pending at time of discharge 2. Hemoglobin A1c pending at time of discharge DATE OF ADMISSION: 03/30/2016 DATE OF DISCHARGE: 04/03/2016 DISCHARGE DIAGNOSES: 1. Metastatic melanoma 2. Asymptomatic bacteriuria CONSULTATIONS: General surgery by Dr. Alicea, hematology Oncology, Radiation Oncology PROCEDURES / IMAGING: Exploratory laparoscopy with laparotomy, liver biopsy, right oophorectomy on 01/2017 CHIEF COMPLAINT: Patient presented with abdominal pain SUBJECTIVE: Patient has no abdominal pain at time of discharge, she is passing gas PHYSICAL EXAM ON DISCHARGE: Systolic blood pressure is 1/30, heart rate in the 70s, afebrile overnight, satting well on room air, bowel sounds are present, abdomen is soft nontender nondistended, she has good inspiratory and expiratory air movement in the bilateral pulmonary basis LABS ON DISCHARGE: Creatinine 0.6, glucose range 100-130 HOSPITAL COURSE BY PROBLEM: 1. Metastatic melanoma. Patient presented with abdominal discomfort and she was found to have extensive abdominal involvement of her melanoma as well as an MRI confirming brain metastases with mild hemorrhage but no hydrocephalus or brain compression. She underwent abdominal biopsy of the affected areas by Dr. Alicea on 04/01 and pathology results are pending at time of discharge. He was initiated on dexamethasone 4 mg twice daily and did not have any significant hyperglycemia warranting additional treatment. She was seen in consultation by Radiation Oncology and she will receive brain mapping immediately after discharge today. She will then follow up in the Oncology Clinic with Dr. Hallman thereafter. She has as needed medications for any abdominal symptoms. 2. Asymptomatic bacteriuria. The patient had asymptomatic bacteriuria with greater than 100,000 colonies on urine culture but no specific organism and no urinary symptoms. She did not require any antibiotic therapy. If she develops any urinary symptoms moving forward, I would recommend treatment with antibiotics. DISCHARGE MEDICATIONS: Please see official discharge medication reconciliation sheet in chart , dexamethasone 4 mg twice daily, Zofran as needed, oxycodone as needed, over-the- counter laxatives as needed. DISCHARGE INSTRUCTIONS: Discussed with patient's family that laxatives may be indicated if the patient does not have a bowel movement today, the patient will follow up with radiation oncology and medical oncology hereafter. TIME SPENT: Greater than 30 minutes were spent on direct patient care, as well as discharge planning and preparation.
[2016-04-03 11:03] LABS: HEMOGLOBIN A1C 4.9 % (4.0-6.0)
[2016-04-03] MEDS: INSULIN REGULAR HUMAN 100 UNIT/ML SC SCH (12:02)
--- NOTE | 2016-04-19 15:06 | GOP ---
[f rep st] OPERATIVE REPORT DATE OF OPERATION: 04/01/2016 SURGEON: Shaun Alicea MD [employer] PROFESSIONAL: MARLINE Gonzales ANESTHESIOLOGIST: Dr. Mir Brantley PREOPERATIVE DIAGNOSIS: 1. Metastatic melanoma. 2. Large pelvic right ovarian cyst. POSTOPERATIVE DIAGNOSIS: PROCEDURE PERFORMED: 1. Laparoscopy with resection liver mass, partial hepatectomy. 2. Open right salpingo-oophorectomy. FINDINGS: Patient was found to have hepatic and peritoneal metastases. She had a loculated right ovarian cyst with melanoma mets on the cyst itself and the cyst contained over 3000 cc of fluid. DESCRIPTION OF PROCEDURE: Patient taken to the operating room, where she received satisfactory general endotracheal anesthesia by Dr. Brantley, and placed in the supine position, and prepped and draped in the usual sterile fashion. Left upper quadrant short incision was made. A Veress needle was inserted. Pneumoperitoneum was established. A trocar was introduced. Laparoscope introduced. Good visualization was obtained and a large pelvic cyst was identified. Some peritoneal mets were identified and a couple of nodules in the liver were identified. Two other trocars were placed under direct vision, and the liver mass in the left lateral segment was dissected free and removed intact and sent to Pathology. Hemostasis was obtained with electrocautery. Attention was then turned to the pelvis. There was no way to work around this large pelvic cyst. A lower abdominal midline incision was then made and carried through the linea alba,and the cyst was freed up until it could be eventually delivered out of this incision. The infundibulopelvic ligament was divided with the Harmonic Scalpel and/or 0 Vicryl ties, as well as the right tube. The entire specimen was removed intact. Prior to that, attempt at aspirating the cyst laparoscopically was done with over 3000 cc removed, but it was still quite large and multiple loculations within the cyst and therefore, the decision was made to proceed with a lower midline incision. The wound was copiously irrigated. After the cyst was removed, hemostasis was assured. The abdomen was then closed with a running #1 PDS suture for the linea alba. The wound was infiltrated with 0.5% Marcaine. Subcu was closed with 3-0 Vicryl and the skin with skin cherise. Trocar sites were also closed with 4-0 Monocryl subcuticular stitches and infiltrated with 0.5% Marcaine. She tolerated the procedure well, was taken to recovery room in good condition. There were no complications. Blood loss was less than 50 cc. /[id number]/MODL [id number]
== END 2016-04-03 13:50 | disposition home or self-care (01) | DRG 737 ==
LOC: INTOOBSV 12:58 → F1N 15:41 → OBSVTOIN 03-31 11:00
PROVIDERS: ADMIT Internal Medicine; ATTEND Internal Medicine
PROC: 0UT50ZZ Resection of Right Fallopian Tube, Open Approach (ICD-10-PCS; principal; 2016-04-01 08:30)
PROC: 0WQF0ZZ Repair Abdominal Wall, Open Approach (ICD-10-PCS; principal; 2016-04-01 08:30)
PROC: 0FB04ZX Excision of Liver, Percutaneous Endoscopic Approach, Diagnostic (ICD-10-PCS; principal; 2016-04-01 08:30)
PROC: 0UT00ZZ Resection of Right Ovary, Open Approach (ICD-10-PCS; principal; 2016-04-01 08:30)
DX: C79.61 Secondary malignant neoplasm of right ovary (principal); C79.31 Secondary malignant neoplasm of brain; C78.6 Secondary malignant neoplasm of retroperitoneum and peritoneum; C78.00 Secondary malignant neoplasm of unspecified lung; C78.89 Secondary malignant neoplasm of other digestive organs; C79.71 Secondary malignant neoplasm of right adrenal gland; C79.72 Secondary malignant neoplasm of left adrenal gland; C78.7 Secondary malignant neoplasm of liver and intrahepatic bile duct; R82.71 Bacteriuria; K42.9 Umbilical hernia without obstruction or gangrene; Z85.820 Personal history of malignant melanoma of skin
CPT/HCPCS: 86304-90; 96374; 97116-GP; 97162-GP; A9585; G0378; G8978-GP-CK; G8979-GP-CI; G8980-GP-CI; J1100; J1170; J1335; J1885; J2250; J2370; J2405; J2704; J3010; Q9967

== ENCOUNTER 2016-05-17 14:22 | Inpatient (IN) | payer OTHER ==
[2016-05-17] MEDS ORDERED: NS 500 ML IV ONE (14:31)
--- NOTE | 2016-05-17 14:37 | EDPHY ---
H & P - Medical/Surgical History Hx Asthma: No Hx Chronic Respiratory Disease: No Hx Diabetes: No Hx Cardiac Disease: No Hx Renal Disease: No Hx Cirrhosis: No Hx Alcoholism: No Hx HIV/AIDS: No Hx Splenectomy or Spleen Trauma: No Other PMH: PMH- MELANOMA. PSH- VIDAL, LYMPH NODE REMOVAL - Social History Smoking Status: Never smoked Time Seen by Provider: 05/17/16 14:25 HPI/ROS: Chief complaint: Syncope History of present illness: This is a 65-year-old female with a history of metastatic melanoma who presents to the emergency department by EMS after having a syncopal episode. Patient apparently went to the bathroom and the next thing she remembers is waking up on the floor. Her believes she passed out. On my evaluation patient reports feeling weak. She denies other associated signs or symptoms. Her last treatment for her cancer was this last Wednesday. She denies specific precipitating factors, again though she appears to have been going to the bathroom when this occurred. She denies other associated signs or symptoms including no fevers, no cold-like symptoms, no urinary symptoms. Review of systems: A 10 point review of systems was obtained and other than described above was negative (Jorge Brink) - Physical Exam Exam: General Appearance: Alert, unwell appearing but nontoxic. Eyes: Pupils equal and round no pallor or injection. ENT, Mouth: Mucous membranes moist. Respiratory: There are no retractions, lungs are clear to auscultation. Cardiovascular: Regular rate and rhythm. Gastrointestinal: Abdomen is soft and non tender, no masses, bowel sounds normal. Neurological: Alert and oriented. Strength and sensation intact and symmetrical. Skin: Warm and dry, no rashes. Musculoskeletal: Neck is supple non tender. Extremities are symmetrical, full range of motion. Psychiatric: Patient is oriented X 3, there is no agitation. (Jorge Brink) Constitutional: Initial Vital Signs Temperature (C) 36.7 C 05/17/16 14:30 Heart Rate 140 H 05/17/16 14:30 Respiratory Rate 18 05/17/16 14:30 Blood Pressure 88/45 L 05/17/16 14:30 O2 Sat (%) 96 05/17/16 14:30 O2 Delivery Mode Room Air Allergies/Adverse Reactions: amoxicillin [Amoxicillin] Allergy (Mild, Verified 02/21/10 13:48) Rash lorazepam Allergy (Verified 05/17/16 16:46) Anxiety prochlorperazine [From Compazine] Allergy (Verified 05/17/16 16:46) Anxiety prochlorperazine edisylate [From Compazine] Allergy (Verified 05/17/16 16:46) Anxiety prochlorperazine maleate [From Compazine] Allergy (Verified 05/17/16 16:46) Anxiety Home Medications: Medication Instructions Recorded Ipilimumab [Yervoy] 0 mg IV Q21D 05/17/16 Loperamide HCl [Imodium 2 mg (*)] 4 mg PO DAILY PRN 05/17/16 Nivolumab [Opdivo] 0 mg IV Q21D 05/17/16 Ondansetron Odt [Zofran Odt 4 mg 4 mg PO TID PRN 05/17/16 (*)] Medical Decision Making - Diagnostics Imaging: Chest x-ray largely unremarkable CTA of the chest reveals high volume bilateral pulmonary embolism and metastasis of multiple sites, see report for complete details (Jorge Brink) ED Course/Re-evaluation: Patient is seen in conjunction with my primary supervising physician Dr. Tram Reece. Patient presents to the emergency department after having a syncopal episode. Patient is unwell appearing. Tachycardic and hypotensive. Ultimately she appears to be suffering from bilateral high volume pulmonary embolisms. At the request of the hospitalist she is started on Lovenox. She is admitted for further evaluation and care. (Jorge Brink) Differential Diagnosis: Included but not limited to anemia, electrolyte disturbances, cardiac dysrhythmia, ACS, pulmonary embolism, dehydration, infections of multiple etiologies including pneumonia (Jorge Brink) Other Provider: [id number]: This patient was seen and examined by me. She has a history of melanoma and last received chemotherapy 2 days ago. On presentation she is hypotensive and tachycardic. She is alert, talkative, NAD Chest CTA, CV-RRR, Abdomen is soft and nontender.She denies fever, shortness of breath, chest pain. This patient meets SIRS criteria, but I do not suspect infection. She has an elevated lactate, which is most likely secondary to dehydration. We will continue IV fluids for now. Trop elevated, EKG reviewed: S1Q3T3, CTA chest ordered and reveals acute pulmonary embolism. Lovenox IM given. Not a tpa candidate given brain mets. (Tram Reece) - Data Points Laboratory Results: Laboratory Results 05/17/16 14:50 05/17/16 14:50 05/17/16 14:50 Smear Review By Roz CARCAMO MD Medications Given: Discontinued Medications Enoxaparin Sodium (Lovenox) 75 mg SC EDNOW ONE Stop: 05/17/16 16:20 Last Admin: 05/17/16 16:40 Dose: 75 mg Furosemide (Lasix Injection) 20 mg IVP BIDDIUR HARSHAD Stop: 11/14/16 08:59 Last Admin: 05/18/16 17:37 Dose: Not Given Sodium Chloride (Ns) 500 mls @ 0 mls/hr IV ONCE ONE PRN Reason: As Directed Stop: 05/17/16 14:32 Last Admin: 05/17/16 14:57 Dose: 500 mls Sodium Chloride (Ns) 1,000 mls @ 3,000 mls/hr IV ONCE ONE Stop: 05/17/16 16:05 Last Admin: 05/17/16 15:30 Dose: 1,000 mls Sodium Chloride (Ns) 500 mls @ 0 mls/hr IV ONCE ONE PRN Reason: Wide Open Stop: 05/18/16 11:12 Last Admin: 05/18/16 12:15 Dose: 500 mls Departure - Departure Disposition: [facility] Inpatient Acute Clinical Impression: Syncope Qualifiers: Syncope type: unspecified Qualified Code(s): R55 - Syncope and collapse Pulmonary embolism Qualifiers: Pulmonary embolism type: other Chronicity: acute Acute cor pulmonale presence: without acute cor pulmonale Qualified Code(s): I26.99 - Other pulmonary embolism without acute cor pulmonale Condition: Fair
--- NOTE | 2016-05-17 14:47 | CPEKG ---
Heart Rate: 137 RR Interval: 438 P-R Interval: 124 QRSD Interval: 94 QT Interval: 312 QTC Interval: 471 P [place]: 75 QRS [place]: 139 T Wave [place]: -49 EKG Severity - ABNORMAL ECG - EKG Impression: SINUS TACHYCARDIA EKG Impression: CONSIDER RIGHT VENTRICULAR HYPERTROPHY EKG Impression: NONSPECIFIC T ABNORMALITIES, INFERIOR LEADS Electronically Signed By: Tram Reece 17-May-2016 15:37:02
[2016-05-17 15:06] LABS: ADD DIFF? YES; ADD MORPH? NO; ADD SCAN? NO; ATYPICAL LYMPHOCYTE FLAG 20 (0-99); FRAGMENT RBC FLAG 0 (0-99); HEMATOCRIT 38.2 % (38.0-47.0); HEMOGLOBIN 11.9 g/dL (12.6-16.3); LEFT SHIFT FLG 60 (0-99); LIPEMIA HEMOLYSIS FLAG 80 (0-99); MEAN CELL HEMOGLOBIN 27.7 pg (27.9-34.1); MEAN CELL HEMOGLOBIN CONCENTR. 31.2 g/dL (32.4-36.7); MEAN PLATELET VOLUME 11.2 fL (8.7-11.7); PLATELET CLUMPS FLAG 20 (0-99); PLATELET COUNT 125 10^3/uL (150-400); RED BLOOD CELL COUNT 4.29 10^6/uL (4.18-5.33)
[2016-05-17 15:19] LABS: ANION GAP 10 mEq/L (8-16); CALCIUM 7.1 mg/dL (8.5-10.4); CARBON DIOXIDE 20 mEq/l (22-31); CHLORIDE 100 mEq/L (97-110); CREATININE 0.7 mg/dL (0.6-1.0); GLOMERULAR FILTRATION RATE > 60; GLUCOSE 118 mg/dL (70-100); POTASSIUM 4.3 mEq/L (3.5-5.2); SODIUM 130 mEq/L (134-144)
[2016-05-17 15:26] LABS: APTT 27.5 SEC (23.0-38.0); INR 1.21 (0.83-1.16); PROTIME(PATIENT) 15.3 SEC (12.0-15.0)
[2016-05-17 15:30] LABS: TROPONIN I 0.182 ng/mL (0-0.034)
[2016-05-17 15:40] LABS: ECHINOCYTES 2+; LARGE PLATELETS PRESENT; PLATELET ESTIMATE DECREASED (ADEQ); POLYCHROMASIA 1+; TOXIC GRANULATION PRESENT
[2016-05-17] MEDS ORDERED: IOPAMIDOL (ISOVUE-370) 150 ML BTL IV ONE (15:41)
[2016-05-17] MEDS ORDERED: NS 1,000 ML IV ONE (15:46)
[2016-05-17] MEDS ORDERED: oxyCODONE IR 5 MG TAB PO PRN (15:46)
[2016-05-17] MEDS ORDERED: NS 1,000 ML IV SCH (16:00)
[2016-05-17] MEDS ORDERED: ENOXAPARIN 80 MG/0.8 ML SYR SC ONE (16:19)
--- NOTE | 2016-05-17 16:23 | CPEKG ---
Heart Rate: 126 RR Interval: 476 P-R Interval: 160 QRSD Interval: 86 QT Interval: 324 QTC Interval: 470 P [place]: 69 QRS [place]: -22 T Wave [place]: -38 EKG Severity - ABNORMAL ECG - EKG Impression: SINUS TACHYCARDIA EKG Impression: BORDERLINE LEFT AXIS DEVIATION EKG Impression: NONSPECIFIC T ABNORMALITIES, DIFFUSE LEADS Electronically Signed By: Tram Reece 17-May-2016 21:13:15
--- NOTE | 2016-05-17 16:56 | GHP ---
DATE OF ADMISSION: 05/17/2016 HISTORY OF PRESENT ILLNESS: The patient is a 65-year-old female with a history of metastatic melano ma, who was recently hospitalized in March of this year with noted recurrence. Since then, she rossi s received some XRT for intracranial metastases, as well as chemotherapy. Today she was in her [facility]. She was in the bathroom when she had syncope and the next thing she knew her hus band was waking her up on the ground. She denies antecedent chest pain, shortness of breath, hemopt ysis, cough, lightheadedness or dizziness. She has been eating and drinking lately well. She has c hronic diarrhea from her chemotherapy, but otherwise is without complaints. She has no personal or family history of pulmonary embolism. It is not clear which chemotherapeutic agent she is getting. She has not had fever. She did not ge t a flu shot this year. She denies a cough, urgency, frequency, dysuria. Her surgical scars on her abdomen from March are healing well, and there is no fluctuance or pain in that area. REVIEW OF SYSTEMS: Complete 10-point review of systems was conducted and is negative, except as not ed in the HPI. PAST MEDICAL/SURGICAL HISTORY: 1. Metastatic melanoma. She originally had melanoma in about 2009, with excision treatment. She h ad recurrence of lymph nodes and underwent some interferon, and had been in remission until March of this year. 2. She also had a cholecystectomy. SOCIAL HISTORY: . No tobacco. No alcohol. FAMILY HISTORY: Mother had cancer. Two cousins with cancer. No venous thromboembolism. ALLERGIES: Are amoxicillin, prochlorperazine. HOME MEDICATIONS: An unreconciled list at this time, includes lorazepam, dexamethasone, oxycodone, MiraLAX, ondansetron, Tylenol. Further list is unavailable. PHYSICAL EXAM: PRESENTING VITAL SIGNS: Blood pressure 88/45 (this is notably lower of her blood pr essures about 100/90), pulse 142, breathing 18 times a minute, 96% on room air. She is desaturating on a couple of liters when I see her. GENERAL: In no acute distress. HEENT: Sclerae anicteric. Oropharynx clear. Mucous membranes are moist. NECK: Supple, without lymphadenopathy. There is J VD to the angle of her jaw. LUNGS: Are clear to auscultation bilaterally. HEART: Is tachycardic, S1 and S2. ABDOMEN: Soft. Incisions are clean, dry and intact, without fluctuance or erythema. LOWER EXTREMITIES: Without edema. Calves are nontender. SKIN: Without rash. NEUROLOGIC: Nonfoc al. LABS: White count 2.6, hematocrit 38, platelets are 125,000. Differential includes bands and segs. INR is 1.2. Venous lactate is 4. Sodium 130, potassium 4.3, chloride 100, bicarb 20, BUN 11, cre atinine 0.7, glucose 118. Troponin is 0.182 with no prior for comparison. There is no UA. IMAGING: Chest x-ray interpreted by me shows possible bronchitis, otherwise fairly unremarkable. E KG interpreted by me shows sinus tach at 137 with normal axis and intervals. There are T-wave inver sions in lead 3 and in lead V3. There is moderate R-wave progression. There is no prior for compar tori that I can find. I discussed the case with Jorge Brink of the emergency department. ASSESSMENT/PLAN: This is a 65-year-old female with metastatic melanoma, who presents with syncope, tachycardia, positive troponin and left shift. 1. Syncope. Differential is broad and includes pulmonary embolism, arrhythmia, orthostatic syncope . I do not think it is vasovagal. 2. Question pulmonary embolism. This certainly seems like a classic presentation for pulmonary emb olism. CT pulmonary embolism protocol is ordered and starting now. 3. Question sepsis. The patient has a left shift in her differential. She has a borderline low wh ite count. She is getting chemotherapy. She is certainly at risk. I will draw blood cultures and provide broad-spectrum antibiotics, unless there is a clear large pulmonary embolism. 4. Metastatic melanoma. She is undergoing therapy. Will follow. 5. Sinus tachycardia. This is reactive. Will volume resuscitate her. She got 500 mL. I will lauren us her another liter and start maintenance IV fluids. 6. Prophylaxis. Pharmacologic prophylaxis is indicated if she does not have a pulmonary embolism, and I await those studies. 7. Venous lactate. This is consistent with either sepsis or poor perfusion from a pulmonary emboli sm. Volume resuscitation, PE eval and antibiotics as mentioned. DISPOSITION: Inpatient status. CODE: Full. /[id number]/MODL
[2016-05-17] MEDS: CEFEPIME HCL 2 GM in D5W 100 ML IV SCH (17:17)
[2016-05-17] MEDS ORDERED: ONDANSETRON DISINTEGRATING 4 MG TAB PO PRN (17:20)
[2016-05-18] MEDS: ENOXAPARIN 80 MG/0.8 ML SYR SC SCH ×2 (03:40→16:44)
[2016-05-18] MEDS: CEFEPIME HCL 2 GM in D5W 100 ML IV SCH ×2 (03:40→16:36)
[2016-05-18 05:33] LABS: ADD DIFF? YES; ADD MORPH? NO; ADD SCAN? NO; ATYPICAL LYMPHOCYTE FLAG 50 (0-99); FRAGMENT RBC FLAG 0 (0-99); HEMATOCRIT 33.3 % (38.0-47.0); HEMOGLOBIN 10.4 g/dL (12.6-16.3); LEFT SHIFT FLG 90 (0-99); LIPEMIA HEMOLYSIS FLAG 80 (0-99); MEAN CELL HEMOGLOBIN 27.7 pg (27.9-34.1); MEAN CELL HEMOGLOBIN CONCENTR. 31.2 g/dL (32.4-36.7); MEAN CELL VOLUME 88.8 fL (81.5-99.8); MEAN PLATELET VOLUME 11.4 fL (8.7-11.7); PLATELET CLUMPS FLAG 0 (0-99); PLATELET COUNT 109 10^3/uL (150-400); RED BLOOD CELL COUNT 3.75 10^6/uL (4.18-5.33); RED CELL DISTRIBUTION WIDTH 15.1 % (11.5-15.2)
[2016-05-18 05:56] LABS: ANION GAP 9 mEq/L (8-16); CALCIUM 6.9 mg/dL (8.5-10.4); CARBON DIOXIDE 19 mEq/l (22-31); CHLORIDE 104 mEq/L (97-110); CREATININE 0.8 mg/dL (0.6-1.0); GLOMERULAR FILTRATION RATE > 60; GLUCOSE 108 mg/dL (70-100); SODIUM 132 mEq/L (134-144)
[2016-05-18 06:32] LABS: PLATELET ESTIMATE DECREASED (ADEQ)
[2016-05-18 06:33] LABS: ECHINOCYTES 2+; LARGE PLATELETS PRESENT; POLYCHROMASIA 1+; TOXIC GRANULATION PRESENT
--- NOTE | 2016-05-18 08:39 | CPEKG ---
Heart Rate: 113 RR Interval: 531 P-R Interval: 132 QRSD Interval: 80 QT Interval: 340 QTC Interval: 467 P [place]: 75 QRS [place]: 14 T Wave [place]: -43 EKG Severity - ABNORMAL ECG - EKG Impression: SINUS TACHYCARDIA EKG Impression: LOW VOLTAGE IN FRONTAL LEADS EKG Impression: BORDERLINE R WAVE PROGRESSION, ANTERIOR LEADS EKG Impression: BORDERLINE T ABNORMALITIES, DIFFUSE LEADS Electronically Signed By: Marcial Salazar 18-May-2016 15:18:59
[2016-05-18] MEDS: FUROSEMIDE 20 MG/2 ML VIAL IVP SCH ×2 (09:25→17:37)
[2016-05-18] MEDS ORDERED: NS 500 ML IV ONE (11:11)
[2016-05-18 12:46] LABS: COLOR AMBER; LEUKOCYTE ESTERASE,URINE NEGATIVE (NEGATIVE); NITRITE,URINE NEGATIVE (NEGATIVE)
[2016-05-18 13:11] LABS: MUCUS 2+ /lpf (NONE-1+); RBC,URINE 50-182 /hpf (0-3)
[2016-05-18] MEDS: ONDANSETRON DISINTEGRATING 4 MG TAB PO PRN (15:47)
--- NOTE | 2016-05-18 16:42 | HOSPPROG ---
Hospitalist Progress Note Assessment/Plan: 65 yo F with hx of metastatic melanoma s/p recent XRT and chemotherapy admitted with syncope in setting of acute bilateral PE # acute bilateral PE: relatively high volume PE, at this point is hemodynamically stale though mildly hypotensive. Started on lovenox which would be indicated ongoingly in a patient with underlying malignancy--discussed this with patient and her family, she will discuss this with her family and consider if she is willing to stay on lovenox versus switch to coumadin. Will obtain echocardiogram # BLE DVT: discussed with radiology, patient with extensive BLE DVT including bilateral femoral veins, clot is non contiguous. Will d/w family possibility of filter. # metastatic melanoma: with extensive metastasis, has intracranial mets and has now undergone xrt and chemotherapy. Will continue to f/u with oncology # syncope: in settting of acute PE, monitoring on tele, will obtain echo # pancytopenia: 2/2 chemotherapy, monitoring # dispo: IP status, will need > 48 hours stay for eval/mgmt of above Patient new to my care. Old records reviewed and summarized as above. Care plan reviewed with patients family present at bedside as well as Radiology. Subjective: no significant overnight events, patient currently feeling a bit better though remains somnolent and sob with exertion Objective: Vital Signs Temp Pulse Resp BP Pulse Ox 36.3 C 114 H 26 H 119/74 94 05/18/16 15:09 05/18/16 15:09 05/18/16 15:09 05/18/16 15:09 05/18/16 15:09 Laboratory Results 05/18/16 04:27 05/18/16 04:27 05/17/16 05/18/16 05/19/16 05:59 05:59 05:59 Intake Total 3150 Balance 3150 PT 15.3 SEC (12.0-15.0) H 05/17/16 14:50 INR 1.21 (0.83-1.16) H 05/17/16 14:50 awake alert chronically ill appearing mmm tachy regular no mrg cta b, poor inspiratory effort soft nt nd trace ble edema, calves nt, symmetrical oriented appropriate warm dry well perfused - Time Spent With Patient Time Spent with Patient: greater than 35 minutes Time Spent with Patient: Greater than 35 minutes spent on this patients care, greater than 50% of time spent counseling, educating, and coordinating care regarding the above mentioned plan. ICD10 Worksheet Patient Problems: Problems Problem Status Onset Pulmonary embolism Acute Syncope Acute Abdominal discomfort Acute Pelvic mass in female Acute Vomiting Acute
[2016-05-19] MEDS: ENOXAPARIN 80 MG/0.8 ML SYR SC SCH ×2 (03:59→16:31)
[2016-05-19] MEDS: CEFEPIME HCL 2 GM in D5W 100 ML IV SCH (03:59)
[2016-05-19 06:19] LABS: ABSOLUTE IMMATURE GRANULOCYTES 0.05 10^3/uL (0.00-0.10); ADD DIFF? NO; ADD MORPH? NO; ADD SCAN? NO; ATYPICAL LYMPHOCYTE FLAG 70 (0-99); FRAGMENT RBC FLAG 0 (0-99); HEMATOCRIT 32.4 % (38.0-47.0); LEFT SHIFT FLG 90 (0-99); LIPEMIA HEMOLYSIS FLAG 80 (0-99); MEAN CELL HEMOGLOBIN 27.5 pg (27.9-34.1); MEAN CELL HEMOGLOBIN CONCENTR. 30.9 g/dL (32.4-36.7); MEAN PLATELET VOLUME 11.6 fL (8.7-11.7); PLATELET CLUMPS FLAG 10 (0-99); PLATELET COUNT 100 10^3/uL (150-400); RED BLOOD CELL COUNT 3.64 10^6/uL (4.18-5.33); RED CELL DISTRIBUTION WIDTH 15.1 % (11.5-15.2)
[2016-05-19 06:24] LABS: ANION GAP 6 mEq/L (8-16); CALCIUM 7.3 mg/dL (8.5-10.4); CARBON DIOXIDE 21 mEq/l (22-31); CHLORIDE 104 mEq/L (97-110); CREATININE 0.7 mg/dL (0.6-1.0); GLOMERULAR FILTRATION RATE > 60; GLUCOSE 91 mg/dL (70-100); POTASSIUM 3.6 mEq/L (3.5-5.2); SODIUM 131 mEq/L (134-144)
[2016-05-19] MEDS: ONDANSETRON DISINTEGRATING 4 MG TAB PO PRN ×2 (08:54→16:33)
[2016-05-19] MEDS: LOPERAMIDE HCL 2 MG CAP PO PRN ×2 (08:54→13:53)
--- NOTE | 2016-05-19 13:15 | HOSPPROG ---
Hospitalist Progress Note Assessment/Plan: 65 yo F with hx of metastatic melanoma s/p recent XRT and chemotherapy admitted with syncope in setting of acute bilateral PE # acute bilateral PE: relatively high volume PE, at this point is hemodynamically stable though mildly hypotensive and tachycardic still. Started on lovenox and per patients preference will begin coumadin as well. Echocardiogram pending. # BLE DVT: discussed with radiology, patient with extensive BLE DVT including bilateral femoral veins, clot is non contiguous. Will not pursue filter at this time given that patient remains stable in terms of above. If echo shows significant right heart strain, will d/w family possible benefit of IVC filter. # metastatic melanoma: with extensive metastasis, has intracranial mets and has now undergone xrt and chemotherapy. Will continue to f/u with oncology # nausea/anorexia: patient notes nausea whenever she eats since beginning chemo , continues to have poor appetite. Will ask for dietary consult. Continue prn antiemetics. # syncope: in settting of acute PE, monitoring on tele, will obtain echo # pancytopenia: 2/2 chemotherapy, stable # dispo: IP status, will need > 48 hours stay for eval/mgmt of above Care plan reviewed with patients family present at bedside Subjective: no significant overnight events, patient currently feeling much better than yesterday, has been up to a chair without significant issues, still not much of an appetite Objective: Vital Signs Temp Pulse Resp BP Pulse Ox 36.4 C 112 H 28 H 100/70 95 05/19/16 12:00 05/19/16 12:00 05/19/16 12:00 05/19/16 12:00 05/19/16 12:00 Laboratory Results 05/19/16 03:52 05/19/16 03:52 05/18/16 05/19/16 05/20/16 05:59 05:59 05:59 Intake Total 3150 650 Output Total 250 Balance 3150 400 PT 15.3 SEC (12.0-15.0) H 05/17/16 14:50 INR 1.21 (0.83-1.16) H 05/17/16 14:50 awake alert chronically ill appearing mmm tachy regular no mrg cta b, poor inspiratory effort soft nt nd trace ble edema, calves nt, symmetrical oriented appropriate warm dry well perfused ICD10 Worksheet Patient Problems: Problems Problem Status Onset Pulmonary embolism Acute Syncope Acute Abdominal discomfort Acute Pelvic mass in female Acute Vomiting Acute
--- NOTE | 2016-05-19 13:23 | ECHO ---
[id number] + + [address] : : [place] [address] : : [phone] + + Adult Echocardiographic Report + -----+ :Name: DYLAN DE LA ROSA MStudy Date: 05/19/2016 07:55 AM : : Hospital Admission Number: [id number] Location : 203: :: 1950 Gender: Female Height: 64 in : :Age: 65 yrs Race: WH Weight: 165 lb : :Reason For Study: Acute bilateral PE/lower extremity : :swelling/question right heart strain BSA: 1.8 meters2 : + -----+ MMode/2D Measurements \T\ Calculations IVSd: 0.77 cm LVIDd: 4.1 cm FS: 54.5 % Ao root diam: 2.9 cm LVPWd: 0.94 cm LVIDs: 1.9 cm EDV(Teich): 76.1 ml LA dimension: 3.1 cm ESV(Teich): 11.0 ml EF(Teich): 85.6 % Normal Measurement Values: + + :LVIDd (3.5-5.7cm) IVSd (0.6-1.1cm) LVPWd (0.6-1.1cm) Aortic Root (2.0-3.7cm)Left Atrium (1.5-4.0cm): :LV Vol(d) (76-115ml) LV Vol(s) (29-48ml) Ejec Fraction (50-65%)PV Lauro (0.6- 1.2m/s) TV Lauro (0.4-1.0m/s) : :MV E Lauro (0.8-1.0m/s)MV A Lauro (0.3-1.0m/s)LVOT Lauro (0.7-1.2m/s) Asc Ao Lauro ( 0.9-1.8m/s) : + + Doppler Measurements \T\ Calculations MV E max lauro: 37.5 cm/sec Ao mean P.1 mmHg TR max lauro: 287.8 cm/sec MV A max lauro: 80.0 cm/sec Ao V2 mean: 82.4 cm/sec TR max P.1 mmHg MV E/A: 0.47 Ao V2 VTI: 16.8 cm RAP systole: 10.0 mmHg RVSP(TR): 43.1 mmHg Left Ventricle The left ventricular cavity is small. There is mild concentric left ventricular hypertrophy. The left ventricle is hyperdynamic. Ejection Fraction = 75-80%. Grade I diastolic dysfunction. Flattened septum is consistent with RV pressure overload. Right Ventricle The right ventricle is moderate to severely dilated. The right ventricular systolic function is moderate to severely reduced. Atria The left atrial size is normal. The right atrium is mildly dilated. The interatrial septum is intact with no evidence for an atrial septal defect. Mitral Valve The mitral valve is normal in structure and function. There is no evidence of mitral valve prolapse. There is no mitral valve stenosis. There is no mitral regurgitation noted. Tricuspid Valve Normal tricuspid valve. There is mild tricuspid regurgitation. Right ventricular systolic pressure is 42mmHg. There is Doppler evidence for mild pulmonary hypertension. Aortic Valve The aortic valve is trileaflet. The aortic valve opens well. There is no aortic stenosis. There is no aortic insufficiency. Pulmonic Valve The pulmonic valve is normal in structure and function. There is no pulmonic valvular regurgitation. Great Vessels The aortic root is normal size. Pericardium/Pleural Trivial anterior pericardial effusion. Conclusion A complete two-dimensional transthoracic echocardiogram was performed (2D, M-mode, Doppler and color flow Doppler). The left ventricle is hyperdynamic. There is mild concentric left ventricular hypertrophy. Ejection Fraction = 75-80%. The left ventricular cavity is small. Grade I diastolic dysfunction Flattened interventricular septum consistent with RV pressure overload RV is moderately to severely dilated with moderately to severely reduced systolic function Mild RA dilation Mild TR and mild pulmonary HTN No prior echo Final Reading Physician: Dr Ritika Greenfield electronically signed on 05/19/2016 01:22 PM Ordering Physician: Ozzy Smith Performed By: Mary Brewster, ANSELMOCS
[2016-05-19] MEDS ORDERED: WARFARIN SODIUM 5 MG TAB PO ONE (16:00)
[2016-05-20] MEDS: ACETAMINOPHEN 325 MG TAB PO PRN ×2 (00:08→04:07)
[2016-05-20] MEDS: ENOXAPARIN 80 MG/0.8 ML SYR SC SCH ×2 (04:07→15:40)
[2016-05-20 07:15] LABS: ADD DIFF? YES; ADD MORPH? NO; ADD SCAN? YES; FRAGMENT RBC FLAG 0 (0-99); HEMATOCRIT 32.6 % (38.0-47.0); HEMOGLOBIN 10.3 g/dL (12.6-16.3); LEFT SHIFT FLG 40 (0-99); LIPEMIA HEMOLYSIS FLAG 80 (0-99); MEAN CELL HEMOGLOBIN 27.8 pg (27.9-34.1); MEAN CELL HEMOGLOBIN CONCENTR. 31.6 g/dL (32.4-36.7); MEAN CELL VOLUME 88.1 fL (81.5-99.8); MEAN PLATELET VOLUME 11.8 fL (8.7-11.7); PLATELET CLUMPS FLAG 10 (0-99); PLATELET COUNT 105 10^3/uL (150-400); RED CELL DISTRIBUTION WIDTH 15.1 % (11.5-15.2)
[2016-05-20 07:17] LABS: ATYPICAL LYMPHOCYTE FLAG 110 (0-99)
[2016-05-20 07:32] LABS: INR 1.34 (0.83-1.16); PROTIME(PATIENT) 16.6 SEC (12.0-15.0)
[2016-05-20 08:01] LABS: SCAN POSITIVE
[2016-05-20 08:07] LABS: GIANT PLATELETS PRESENT; PLATELET ESTIMATE DECREASED (ADEQ)
[2016-05-20 08:08] LABS: POLYCHROMASIA 1+; TOXIC GRANULATION PRESENT
[2016-05-20] MEDS ORDERED: LORazepam 0.5 MG TAB PO PRN (13:23)
--- NOTE | 2016-05-20 13:47 | HOSPPROG ---
Hospitalist Progress Note Assessment/Plan: 65 yo F with hx of metastatic melanoma s/p recent XRT and chemotherapy admitted with syncope in setting of acute bilateral PE # acute bilateral PE: relatively high volume PE, remains somewhat hypotensive but stable. Continue lovenox and coumadin. # right sided heart failure: RV dysfunction and dilation in the setting of above , appears compensated at this time. Does have extensive DVT however given comorbidities do not think that IVC would offer much benefit. # BLE DVT: discussed with radiology, patient with extensive BLE DVT including bilateral femoral veins, clot is non contiguous. # acute hypoxic respiratory failure: in setting of PE and likely atelectasis with limited mobility since admission, was 85% on RA. May need to dc on supplemental o2 pending clinical improvement. # metastatic melanoma: with extensive metastasis, has intracranial mets and has now undergone xrt and chemotherapy. Will continue to f/u with oncology # nausea/anorexia: patient notes nausea whenever she eats since beginning chemo , continues to have poor appetite. Will ask for dietary consult. Continue prn antiemetics. Will add marinol per patients request as well as remeron at HS. Nothing to suggest bowel obstruction. # syncope: in settting of acute PE, monitoring on tele, will obtain echo # pancytopenia: 2/2 chemotherapy, stable # dispo: IP status, will need > 48 hours stay for eval/mgmt of above Care plan reviewed with patients family present at bedside Subjective: no significant overnight events, patient is feeling a bit better but still quite weak and exhausted after taking a shower Objective: Vital Signs Temp Pulse Resp BP Pulse Ox 36.3 C 108 H 25 H 90/62 L 95 05/20/16 11:35 05/20/16 11:35 05/20/16 11:35 05/20/16 11:35 05/20/16 11:35 Laboratory Results 05/20/16 07:02 05/19/16 03:52 05/19/16 05/20/16 05/21/16 05:59 05:59 05:59 Intake Total 650 300 100 Output Total 250 Balance 400 300 100 PT 16.6 SEC (12.0-15.0) H 05/20/16 07:02 INR 1.34 (0.83-1.16) H 05/20/16 07:02 awake alert chronically ill appearing mmm tachy regular no mrg cta b, poor inspiratory effort soft nt nd trace ble edema, calves nt, symmetrical oriented appropriate warm dry well perfused ICD10 Worksheet Patient Problems: Problems Problem Status Onset Pulmonary embolism Acute Syncope Acute Abdominal discomfort Acute Pelvic mass in female Acute Vomiting Acute
[2016-05-20] MEDS: DRONABINOL 2.5 MG CAP PO SCH ×2 (14:13→21:04)
[2016-05-20] MEDS ORDERED: WARFARIN SODIUM 5 MG TAB PO ONE (16:00)
[2016-05-20] MEDS: MIRTAZAPINE 15 MG TAB PO SCH (21:04)
[2016-05-20] MEDS: ONDANSETRON 4 MG/2 ML VIAL IVP PRN (21:16)
[2016-05-21] MEDS: ENOXAPARIN 80 MG/0.8 ML SYR SC SCH (02:24)
[2016-05-21 04:40] LABS: INR 2.97 (0.83-1.16); PROTIME(PATIENT) 31.3 SEC (12.0-15.0)
[2016-05-21 04:51] LABS: ADD DIFF? YES; ADD MORPH? NO; ADD SCAN? NO; ATYPICAL LYMPHOCYTE FLAG 80 (0-99); FRAGMENT RBC FLAG 0 (0-99); HEMATOCRIT 35.5 % (38.0-47.0); HEMOGLOBIN 11.2 g/dL (12.6-16.3); LEFT SHIFT FLG 40 (0-99); LIPEMIA HEMOLYSIS FLAG 80 (0-99); MEAN CELL HEMOGLOBIN 27.9 pg (27.9-34.1); MEAN CELL HEMOGLOBIN CONCENTR. 31.5 g/dL (32.4-36.7); MEAN CELL VOLUME 88.5 fL (81.5-99.8); MEAN PLATELET VOLUME 12.1 fL (8.7-11.7); PLATELET CLUMPS FLAG 0 (0-99); PLATELET COUNT 116 10^3/uL (150-400); RED BLOOD CELL COUNT 4.01 10^6/uL (4.18-5.33); RED CELL DISTRIBUTION WIDTH 15.2 % (11.5-15.2)
[2016-05-21 05:33] LABS: PLATELET ESTIMATE DECREASED (ADEQ)
[2016-05-21 05:35] LABS: LARGE PLATELETS PRESENT; POLYCHROMASIA 1+
[2016-05-21] MEDS: DRONABINOL 2.5 MG CAP PO SCH ×2 (09:57→20:38)
--- NOTE | 2016-05-21 13:34 | HOSPPROG ---
Hospitalist Progress Note Assessment/Plan: 65 yo F with hx of metastatic melanoma s/p recent XRT and chemotherapy admitted with syncope in setting of acute bilateral PE # acute bilateral PE: relatively high volume PE, remains somewhat hypotensive but stable. Continue coumadin. INR now therapeutic # right sided heart failure: RV dysfunction and dilation in the setting of above , appears compensated at this time. Does have extensive DVT however given comorbidities do not think that IVC would offer much benefit. # lower extremity edema: in the setting of bilateral DVT but also right sided heart failure as above, will benefit from lasix but given continued mild hypotension will hold off on that for now. Likely start low dose lasix in coming 1-2 days. # BLE DVT: discussed with radiology, patient with extensive BLE DVT including bilateral femoral veins, clot is non contiguous. # acute hypoxic respiratory failure: in setting of PE and likely atelectasis with limited mobility since admission, was 85% on RA. May need to dc on supplemental o2 pending clinical improvement. # metastatic melanoma: with extensive metastasis, has intracranial mets and has now undergone xrt and chemotherapy. Will continue to f/u with oncology # nausea/anorexia: patient notes nausea whenever she eats since beginning chemo , continues to have poor appetite. Will ask for dietary consult. Continue prn antiemetics. Feels some benefit from marinol. # generalized weakness: related to chemotherapy and poor po intake as well as prolonged hospital stay and hypoxia. Continues to make improvement. PT/OT. If not strong enough for dc in next 1-2 days will need to consider snf. # syncope: in settting of acute PE, monitoring on tele, will obtain echo # pancytopenia: 2/2 chemotherapy, stable # dispo: IP status, will need > 48 hours stay for eval/mgmt of above, patient remains very limited in her ADLs 2/2 generalized weakness Subjective: no significant overnight events, patient feeling a bit better but is still very weak and not able to get out of bed much more than to get to the bathroom, eating a bit better Objective: Vital Signs Temp Pulse Resp BP Pulse Ox 36.3 C 112 H 29 H 90/66 L 93 05/21/16 12:00 05/21/16 12:00 05/21/16 12:00 05/21/16 12:00 05/21/16 12:00 Laboratory Results 05/21/16 03:32 05/19/16 03:52 05/20/16 05/21/16 05/22/16 05:59 05:59 05:59 Intake Total 300 600 Balance 300 600 PT 31.3 SEC (12.0-15.0) H D 05/21/16 03:32 INR 2.97 (0.83-1.16) H 05/21/16 03:32 awake alert chronically ill appearing mmm tachy regular no mrg cta b, poor inspiratory effort soft nt nd trace ble edema, calves nt, symmetrical oriented appropriate warm dry well perfused ICD10 Worksheet Patient Problems: Problems Problem Status Onset Pulmonary embolism Acute Syncope Acute Abdominal discomfort Acute Pelvic mass in female Acute Vomiting Acute
[2016-05-21] MEDS: ONDANSETRON DISINTEGRATING 4 MG TAB PO PRN (19:29)
[2016-05-21] MEDS: MIRTAZAPINE 15 MG TAB PO SCH (20:38)
[2016-05-22 06:12] LABS: INR 1.65 (0.83-1.16); PROTIME(PATIENT) 19.6 SEC (12.0-15.0)
[2016-05-22] MEDS ORDERED: WARFARIN SODIUM 5 MG TAB PO ONE ×2 (08:00→16:00)
[2016-05-22] MEDS: ONDANSETRON DISINTEGRATING 4 MG TAB PO PRN ×2 (08:30→18:40)
[2016-05-22] MEDS: DRONABINOL 2.5 MG CAP PO SCH ×2 (10:52→20:12)
--- NOTE | 2016-05-22 14:04 | HOSPPROG ---
Hospitalist Progress Note Assessment/Plan: 65 yo F with hx of metastatic melanoma s/p recent XRT and chemotherapy admitted with syncope in setting of acute bilateral PE # acute bilateral PE: relatively high volume PE, remains somewhat hypotensive but stable. Continue coumadin. INR now therapeutic # right sided heart failure: RV dysfunction and dilation in the setting of above , appears compensated at this time. Does have extensive DVT however given comorbidities do not think that IVC would offer much benefit. # lower extremity edema: in the setting of bilateral DVT but also right sided heart failure as above, will benefit from lasix but given continued mild hypotension will hold off on that for now. Likely start low dose lasix in coming 1-2 days. # BLE DVT: discussed with radiology, patient with extensive BLE DVT including bilateral femoral veins, clot is non contiguous. # acute hypoxic respiratory failure: in setting of PE and likely atelectasis with limited mobility since admission, was 85% on RA. Will likely need to dc on supplemental o2 pending clinical improvement. # generalized weakness and deconditioning: continues to have significant difficulty ambulating and dizzyness when she gets up. PT/OT involved. # metastatic melanoma: with extensive metastasis, has intracranial mets and has now undergone xrt and chemotherapy. Will continue to f/u with oncology # nausea/anorexia: patient notes nausea whenever she eats since beginning chemo , continues to have poor appetite. Will ask for dietary consult. Continue prn antiemetics. Feels some benefit from marinol. # syncope: in settting of acute PE, monitoring on tele, will obtain echo # pancytopenia: 2/2 chemotherapy, stable # dispo: IP status, will need > 48 hours stay for eval/mgmt of above, patient remains very limited in her ADLs 2/2 generalized weakness Subjective: no significant overnight events, patient feeling a bit better, eating more but still dizzy and weak when she gets up at all Objective: Vital Signs Temp Pulse Resp BP Pulse Ox 36.4 C 120 H 26 H 94/64 L 91 L 05/22/16 11:30 05/22/16 12:59 05/22/16 11:30 05/22/16 11:30 05/22/16 12:59 Laboratory Results 05/21/16 03:32 05/19/16 03:52 05/21/16 05/22/16 05/23/16 05:59 05:59 05:59 Intake Total 600 300 Output Total 250 Balance 600 300 -250 PT 19.6 SEC (12.0-15.0) H D 05/22/16 05:47 INR 1.65 (0.83-1.16) H 05/22/16 05:47 awake alert chronically ill appearing mmm tachy regular no mrg cta b, poor inspiratory effort soft nt nd trace ble edema, calves nt, symmetrical oriented appropriate warm dry well perfused ICD10 Worksheet Patient Problems: Problems Problem Status Onset Pulmonary embolism Acute Syncope Acute Abdominal discomfort Acute Pelvic mass in female Acute Vomiting Acute
[2016-05-22] MEDS: ENOXAPARIN 80 MG/0.8 ML SYR SC SCH ×2 (16:02→20:12)
[2016-05-22] MEDS: MIRTAZAPINE 15 MG TAB PO SCH (20:13)
[2016-05-23 05:55] LABS: ADD DIFF? YES; ADD MORPH? NO; ADD SCAN? NO; ATYPICAL LYMPHOCYTE FLAG 80 (0-99); FRAGMENT RBC FLAG 0 (0-99); HEMATOCRIT 31.9 % (38.0-47.0); HEMOGLOBIN 10.2 g/dL (12.6-16.3); LEFT SHIFT FLG 30 (0-99); LIPEMIA HEMOLYSIS FLAG 80 (0-99); MEAN CELL VOLUME 87.6 fL (81.5-99.8); MEAN PLATELET VOLUME 12.4 fL (8.7-11.7); PLATELET CLUMPS FLAG 0 (0-99); PLATELET COUNT 110 10^3/uL (150-400); RED BLOOD CELL COUNT 3.64 10^6/uL (4.18-5.33); RED CELL DISTRIBUTION WIDTH 15.8 % (11.5-15.2)
[2016-05-23 06:08] LABS: ANION GAP 5 mEq/L (8-16); CALCIUM 7.2 mg/dL (8.5-10.4); CARBON DIOXIDE 22 mEq/l (22-31); CHLORIDE 103 mEq/L (97-110); CREATININE 0.7 mg/dL (0.6-1.0); GLOMERULAR FILTRATION RATE > 60; GLUCOSE 82 mg/dL (70-100); POTASSIUM 3.8 mEq/L (3.5-5.2); SODIUM 130 mEq/L (134-144)
[2016-05-23 07:50] LABS: PLATELET ESTIMATE DECREASED (ADEQ); POLYCHROMASIA 2+; TOXIC GRANULATION PRESENT
--- NOTE | 2016-05-23 10:11 | HOSPPROG ---
Hospitalist Progress Note Assessment/Plan: 65 yo F with hx of metastatic melanoma s/p recent XRT and chemotherapy admitted with syncope in setting of acute bilateral PE # acute bilateral PE: relatively high volume PE with RV strain. has had some hypotension, sbp 84 this am. -Continue coumadin, INR labile, sub-therapeutic yesterday, awaiting today's INR -Continue Lovenox until INR therapeutic -check orthostatics -replace IV # right sided heart failure: RV dysfunction and dilation in the setting of above , appears compensated at this time. Does have extensive DVT however given comorbidities do not think that IVC would offer much benefit. -check BNP -likely start low dose lasix when BP can tolerate # lower extremity edema: in the setting of bilateral DVT but also right sided heart failure as above. # BLE DVT: previously reviewed with radiology, patient with extensive BLE DVT including bilateral femoral veins, clot is non contiguous. # acute hypoxic respiratory failure: in setting of PE and likely atelectasis with limited mobility since admission, was 85% on RA. -will likely need home O2 # generalized weakness and deconditioning: continues to have significant difficulty ambulating and dizzyness when she gets up. PT/OT involved. -may need SNF / rehab # metastatic melanoma: with extensive metastasis, has intracranial mets and has now undergone xrt and chemotherapy. Will continue to f/u with oncology -consider palliative care consult # nausea/anorexia: continues to have poor appetite and nausea. -dietary consult -continue prn antiemetics, marinol. # syncope: likely secondary to acute PE, monitoring on tele, echo as above # pancytopenia: 2/2 chemotherapy, stable # hyponatremia: suspect she needs more salt in her diet with poor appetite, possibly SIADH due to pulmonary process -check urine Na and urine osm for further evaluation # dispo: cont inpt. patient remains very limited in her ADLs 2/2 generalized weakness Subjective: Pt still feels weak. Gets dizzy with ambulation. SBP low this am. Poor appetite and decreased oral intake. IV out. No fevers, chest pain or SOB at rest. Objective: Vital Signs Temp Pulse Resp BP Pulse Ox 35.8 C L 101 H 18 127/71 H 92 05/23/16 08:00 05/23/16 08:00 05/23/16 08:00 05/23/16 08:00 05/23/16 08:00 Microbiology 05/17/16 22:40 Blood Culture - Final Blood 05/17/16 22:50 Blood Culture - Final Blood Laboratory Results 05/23/16 04:50 05/23/16 04:50 05/22/16 05/23/16 05/24/16 05:59 05:59 05:59 Intake Total 300 250 Output Total 250 Balance 300 0 PT 19.6 SEC (12.0-15.0) H D 05/22/16 05:47 INR 1.65 (0.83-1.16) H 05/22/16 05:47 - Physical Exam Constitutional: no apparent distress Eyes: PERRL Ears, Nose, Mouth, Throat: moist mucous membranes Cardiovascular: regular rate and rhythym Respiratory: no respiratory distress, clear to auscultation Gastrointestinal: normoactive bowel sounds, soft, non-tender abdomen Skin: warm Musculoskeletal: other (1+ b/l LE edema) Neurologic: AAOx3 Psychiatric: interacting appropriately ICD10 Worksheet Patient Problems: Problems Problem Status Onset Pulmonary embolism Acute Syncope Acute Abdominal discomfort Acute Pelvic mass in female Acute Vomiting Acute
[2016-05-23] MEDS: DRONABINOL 2.5 MG CAP PO SCH ×2 (10:58→20:08)
[2016-05-23] MEDS: ENOXAPARIN 80 MG/0.8 ML SYR SC SCH ×2 (10:58→20:08)
[2016-05-23 11:23] LABS: INR 1.91 (0.83-1.16)
[2016-05-23] MEDS: ONDANSETRON DISINTEGRATING 4 MG TAB PO PRN ×2 (11:32→20:08)
[2016-05-23] MEDS ORDERED: WARFARIN SODIUM 2.5 MG TAB PO ONE (16:00)
[2016-05-23] MEDS ORDERED: NS 1,000 ML IV ONE (16:05)
[2016-05-23] MEDS: NS 1,000 ML IV SCH (18:08)
[2016-05-23] MEDS: MIRTAZAPINE 15 MG TAB PO SCH (20:08)
[2016-05-24] MEDS: NS 1,000 ML IV SCH ×3 (03:16→16:54)
[2016-05-24 05:37] LABS: HEMATOCRIT 29.2 % (38.0-47.0); HEMOGLOBIN 9.1 g/dL (12.6-16.3); INR 2.36 (0.83-1.16); MEAN CELL HEMOGLOBIN 27.7 pg (27.9-34.1); MEAN CELL HEMOGLOBIN CONCENTR. 31.2 g/dL (32.4-36.7); RED BLOOD CELL COUNT 3.28 10^6/uL (4.18-5.33); RED CELL DISTRIBUTION WIDTH 16.1 % (11.5-15.2)
[2016-05-24 05:49] LABS: ANION GAP 5 mEq/L (8-16); CALCIUM 6.7 mg/dL (8.5-10.4); CARBON DIOXIDE 21 mEq/l (22-31); CHLORIDE 106 mEq/L (97-110); CREATININE 0.6 mg/dL (0.6-1.0); GLOMERULAR FILTRATION RATE > 60; GLUCOSE 78 mg/dL (70-100); POTASSIUM 3.7 mEq/L (3.5-5.2); SODIUM 132 mEq/L (134-144)
[2016-05-24] MEDS: ONDANSETRON DISINTEGRATING 4 MG TAB PO PRN (08:31)
[2016-05-24] MEDS: DRONABINOL 2.5 MG CAP PO SCH (08:32)
[2016-05-24 11:40] LABS: HEMATOCRIT 34.3 % (38.0-47.0); HEMOGLOBIN 10.8 g/dL (12.6-16.3)
[2016-05-24] MEDS ORDERED: NS 1,000 ML IV ONE (13:48)
--- NOTE | 2016-05-24 14:33 | HOSPPROG ---
Hospitalist Progress Note Assessment/Plan: 65 yo F with hx of metastatic melanoma s/p recent XRT and chemotherapy admitted with syncope in setting of acute bilateral PE # acute bilateral PE / DVT: extensive b/l DVT and b/l high volume PE with severe RV strain. has ongoing orthostatic hypotension, unable to tolerate ambulation. seems outside window for tPa at this point. IVC filter considered , but ultimately felt this would be of little benefit given her other co- morbidities. -Continue coumadin -Lovenox d/c'd as INR now therapeutic # rectal bleeding: small amt of blood with loose brown stool. external hemorrhoids noted on exam, non-thrombosed, not bleeding, brown stool on rectal. ?might this be vaginal bleeding given pelvic tumor and h/o leiomyomas. hgb stable, continue to trend. discussed with GI, agrees with continuing coumadin unless change in status. # orthostatic hypotension: likely related to b/l PE's, with severe rt heart strain, she is likely volume dependent, cont IVF's. She also has b/l adrenal mets and this may be adrenal insufficiency. -will check am cortisol, add on PTH -considering addition of hydrocortisone, discussed with onc -cont IVF's, another bolus given today # right sided heart failure: RV dysfunction and dilation in the setting of above. BNP elevated, +LE edema. -plan to start low dose lasix when BP can tolerate # acute hypoxic respiratory failure: in setting of PE and likely atelectasis with limited mobility since admission, was 85% on RA. -will likely need home O2 # metastatic melanoma: with extensive metastasis (pulmonary, hepatic, splenic, adrenal and intracranial). Has had xrt and chemotherapy. -oncology consult -consider palliative care consult # generalized weakness and deconditioning: continues to have difficulty ambulating with orthostasis. PT/OT involved. -may need SNF / rehab # nausea/anorexia: continues to have poor appetite and nausea. -dietary consult -continue prn antiemetics, marinol. # syncope: likely secondary to acute PE, monitoring on tele, echo as above # pancytopenia: 2/2 chemotherapy, stable # hyponatremia: improving, suspect she needs more salt in her diet with poor appetite, possibly SIADH due to pulmonary process -check urine Na and urine osm for further evaluation # dispo: cont inpt. patient remains very limited in her ADLs 2/2 generalized weakness Subjective: Pt feels okay in bed. Gets dizzy when she tries to stand or ambulate. No dizziness, CP or SOB at rest. No fevers. Appetite fair. RN reported some blood mixed in with loose brown stools x3 this am. Objective: Vital Signs Temp Pulse Resp BP Pulse Ox 36.4 C 94 20 91/56 L 97 05/24/16 11:43 05/24/16 11:43 05/24/16 11:43 05/24/16 11:43 05/24/16 11:43 Microbiology 05/17/16 22:40 Blood Culture - Final Blood 05/17/16 22:50 Blood Culture - Final Blood Laboratory Results 05/24/16 11:20 05/24/16 04:46 05/23/16 05/24/16 05/25/16 05:59 05:59 05:59 Intake Total 250 1950 Output Total 250 400 Balance 0 1550 PT 26.0 SEC (12.0-15.0) H 05/24/16 04:46 INR 2.36 (0.83-1.16) H 05/24/16 04:46 - Physical Exam Constitutional: no apparent distress Eyes: PERRL Ears, Nose, Mouth, Throat: moist mucous membranes Cardiovascular: regular rate and rhythym Respiratory: no respiratory distress, no rales or rhonchi Gastrointestinal: normoactive bowel sounds Skin: warm Musculoskeletal: full muscle strength Neurologic: AAOx3 Psychiatric: interacting appropriately ICD10 Worksheet Patient Problems: Problems Problem Status Onset Pulmonary embolism Acute Syncope Acute Abdominal discomfort Acute Pelvic mass in female Acute Vomiting Acute
[2016-05-24] MEDS ORDERED: WARFARIN SODIUM 2.5 MG TAB PO ONE (16:00)
[2016-05-24 17:55] LABS: HEMATOCRIT 29.4 % (38.0-47.0); HEMOGLOBIN 9.1 g/dL (12.6-16.3)
--- NOTE | 2016-05-24 20:54 | GCON ---
INITIAL VISIT REFERRING PHYSICIAN: Saundra Altamirano MD PRIMARY ONCOLOGIST: Dr. Bibi Hallman. REFERRING PHYSICIAN: Dr. Altamirano. REASON FOR VISIT: Evaluation and management of multiple myeloma. HISTORY OF PRESENT ILLNESS: Kristen is a 65-year-old woman who was diagnosed in 2008 with a high risk melanoma. She presented with brain, bone, lung, liver, adrenal and spleen metastases. She underwe nt, I believe, whole brain radiation and then started on nivolumab plus ipilimumab on April 21. T he 1st cycle apparently went well although she needed some fluids. She was in for her 2nd cycle Apr ruary 24, and at that point, she had been feeling better. There was some questions about the previo us radiation causing some fatigue. She may have had an occasional loose stool but typically control led with Imodium. She was not having any rash. Shortly after that treatment, she had a syncopal ev ent at home in the bathroom and was brought to the emergency room. During that evaluation she was f ound to have bilateral pulmonary emboli. There were multiple thromboemboli identified. At the time that she was diagnosed, she was hypotensive and tachycardic but her oxygen saturation was in the lo w 90%. She was started on heparin and converted to warfarin and generally has been doing okay, but she has had persistent orthostatic hypotension of unclear cause. I was asked to see here for whethe r or not either the PEs or the cancer or the cancer treatment could be causing this. Again, she den ies any significant diarrhea. She does have some chronic mild nausea and no appetite. Marinol init ially was helping but does not seem to be helping any longer. She has not had any vomiting. She no silas no benefit from taking Zofran. She denies any rash or chest pain. ALLERGIES: She is allergic to amoxicillin, lorazepam and prochlorperazine. HOME MEDICATIONS: Include just ondansetron and loperamide. She was taking medicinal marijuana. CHRONIC ILLNESSES: Include metastatic melanoma as described above currently on ipilimumab plus nivo lumab. She does not have any cardiac history or previous cardiac history although she did have a ri ght ventricular dysfunction and dilatation in the setting of the PE. SURGICAL HISTORY: Includes previous melanoma removal as well as a cholecystectomy. She also had a borderline ovarian tumor removed. SOCIAL HISTORY: She is . Does not drink or smoke. FAMILY HISTORY: Mother of malignancy. REVIEW OF SYSTEMS: A 10-point review of systems was performed. Pertinent positives in HPI, otherwi se negative. PHYSICAL EXAMINATION: Temperature is 36.5, pulse is 121, blood pressure is 87/63, saturating 94% on 2.5 L. GENERAL: She is fatigued-appearing woman but in no distress. HEENT: Unremarkable. LUNGS : Clear. CARDIAC: Tachycardic but regular. ABDOMEN: Soft, nontender. EXTREMITIES: She has 2+ edema in lower extremities bilaterally. NEUROLOGIC: Grossly intact. LABS: She has not had liver function tests since arrival. They were normal on the day of treatment except for an albumin of 2.8. Her cortisol on day of treatment was 24. Her TSH was normal. Her s odium was improving to 131. White count was 1700. ANC of 500, which is a little bit lower for her. Hemoglobin is 12 g/dL. Her white count today is 2900, hemoglobin is 9.1, platelet count 95,000. INR is 2.4. Chemistries: Sodium is 132, calcium is low at 6.7. I do not have concurrent albumin. BNP is a little elevated at 8400. UA showed 3+ blood. Blood cultures are negative. CT scan showe d multiple high-volume bilateral pulmonary thromboemboli at the bifurcation of the right and left pu lmonary artery. Multiple pulmonary splenic adrenal mets. IMPRESSION: 1. Metastatic melanoma on ipilimumab and nivolumab. 2. Large volume pulmonary emboli currently on anticoagulation. 3. Orthostatic hypotension. Although the clot could be causing the orthostasis, she is under adequate therapy and it should just slowly get better with time. The radiation may have also caused some orthostasis which then fludro cortisone might be helpful. It is not a known side effect of the 2 drugs, but they can cause some o dd neurological changes. I have also recommended checking LFTs and some hormones as the drug is kno wn to cause both thyroiditis and hypopituitarism. Her cortisol was pretty normal when she was treat ed and I will recheck that to see if there has been a significant change. I do not think Marinol should be causing it, but I recommend stopping it and we can try low-dose zakia nzapine to help with chronic nausea and appetite stimulant. If we do not find an other explanation and the fludrocortisone is not helpful, we could then add steroids, but the reason I do not recommen d doing that right now is it could interfere with her chemotherapy treatment. /[id number]/MODL
[2016-05-24 21:17] LABS: HEMATOCRIT 29.1 % (38.0-47.0)
[2016-05-24] MEDS: OLANZapine 5 MG TAB PO SCH (21:31)
[2016-05-24 21:49] LABS: ALBUMIN 1.9 g/dL (3.5-5.0); BILIRUBIN,TOTAL 0.6 mg/dL (0.1-1.4); BILIRUBIN-CONJUGATED 0.4 mg/dL (0.0-0.5); BILIRUBIN-UNCONJUGATED 0.2 mg/dL (0.0-1.1); TOTAL PROTEIN 3.9 g/dL (6.3-8.2)
[2016-05-24 22:01] LABS: PTH INTACT NO MINERALS 169.5 pg/ml (10.8-79.4)
[2016-05-25 04:06] LABS: INR 2.55 (0.83-1.16); PROTIME(PATIENT) 27.7 SEC (12.0-15.0)
[2016-05-25 04:14] LABS: ANION GAP 4 mEq/L (8-16); CALCIUM 6.7 mg/dL (8.5-10.4); CARBON DIOXIDE 20 mEq/l (22-31); CHLORIDE 110 mEq/L (97-110); CREATININE 0.6 mg/dL (0.6-1.0); GLOMERULAR FILTRATION RATE > 60; GLUCOSE 80 mg/dL (70-100); POTASSIUM 3.6 mEq/L (3.5-5.2); SODIUM 134 mEq/L (134-144)
[2016-05-25 04:20] LABS: ADD DIFF? YES; ADD MORPH? NO; FRAGMENT RBC FLAG 0 (0-99); HEMATOCRIT 31.3 % (38.0-47.0); HEMOGLOBIN 9.7 g/dL (12.6-16.3); LEFT SHIFT FLG 40 (0-99); LIPEMIA HEMOLYSIS FLAG 80 (0-99); MEAN CELL HEMOGLOBIN 27.9 pg (27.9-34.1); MEAN CELL VOLUME 89.9 fL (81.5-99.8); MEAN PLATELET VOLUME 11.9 fL (8.7-11.7); PLATELET CLUMPS FLAG 0 (0-99); PLATELET COUNT 101 10^3/uL (150-400); RED BLOOD CELL COUNT 3.48 10^6/uL (4.18-5.33); RED CELL DISTRIBUTION WIDTH 16.4 % (11.5-15.2)
[2016-05-25 04:30] LABS: ADD SCAN? NO; ATYPICAL LYMPHOCYTE FLAG 100 (0-99)
[2016-05-25 05:37] LABS: PLATELET ESTIMATE DECREASED (ADEQ); POLYCHROMASIA 1+
[2016-05-25] MEDS ORDERED: PROTOCOL CALCIUM 1 DOSE IV PRN (09:13)
[2016-05-25] MEDS: FLUDROCORTISONE ACETATE 0.1 MG TAB PO SCH (09:32)
[2016-05-25] MEDS: LOPERAMIDE HCL 2 MG CAP PO PRN ×2 (09:35→20:25)
--- NOTE | 2016-05-25 09:39 | HOSPPROG ---
Hospitalist Progress Note Assessment/Plan: 65 yo F with hx of metastatic melanoma s/p recent XRT and chemotherapy admitted with syncope in setting of acute bilateral PE # acute bilateral PE / DVT: extensive b/l DVT and b/l high volume PE with severe RV strain. has ongoing orthostatic hypotension, unable to tolerate ambulation. seems outside window for tPa at this point. IVC filter considered , but ultimately felt this would be of little benefit given her other co- morbidities. -Continue coumadin, INR therapeutic # vaginal bleeding: this is confirmed to be vaginal source this am. she has a large pelvic tumor and h/o leiomyomas. hgb stable, continue to trend. -consider interactive web developer consult if persists # orthostatic hypotension: suspect related to b/l PE's, with severe rt heart strain, she is likely volume dependent, cont IVF's. She also has b/l adrenal mets, random cortisol normal yesterday. -starting fludrocortisone today, follow orthostatic vitals -decrease rate of IVF's -ACTH level pending, evaluating for panhypopit # right sided heart failure: RV dysfunction and dilation in the setting of above. BNP elevated, +LE edema. -plan to start low dose lasix when BP can tolerate # acute hypoxic respiratory failure: in setting of PE and likely atelectasis with limited mobility since admission, was 85% on RA. -will likely need home O2 # metastatic melanoma: with extensive metastasis (pulmonary, hepatic, splenic, adrenal and intracranial). Has had xrt and chemotherapy. -oncology now following -pt interested in palliative care consult, will arrange # generalized weakness and deconditioning: continues to have difficulty ambulating with orthostasis. PT/OT involved. -will likely need SNF / rehab # nausea/anorexia: continues to have poor appetite and nausea. -dietary consult -continue prn antiemetics, marinol. # syncope: likely secondary to acute PE, monitoring on tele, echo as above # pancytopenia: 2/2 chemotherapy, stable # hyponatremia: likely hypovolemic, normalized now with NS. cont to follow. # dispo: cont inpt. patient remains very limited in her ADLs 2/2 generalized weakness Subjective: Pt up in chair, feels okay, but still dizzy with standing and ambulation. No CP or SOB. No abdominal pain. HAving some loose stools, but bleeding more clearly vaginal this am. No fevers. She is quite weak. Objective: Vital Signs Temp Pulse Resp BP Pulse Ox 36.1 C 98 28 H 103/61 99 05/25/16 07:55 05/25/16 07:55 05/25/16 07:55 05/25/16 07:55 05/25/16 07:55 Laboratory Results 05/25/16 03:44 05/25/16 03:44 05/24/16 05/25/16 05/26/16 05:59 05:59 05:59 Intake Total 1950 2408 Output Total 400 700 Balance 1550 1708 PT 27.7 SEC (12.0-15.0) H 05/25/16 03:44 INR 2.55 (0.83-1.16) H 05/25/16 03:44 - Physical Exam Constitutional: no apparent distress Eyes: PERRL Ears, Nose, Mouth, Throat: moist mucous membranes Cardiovascular: regular rate and rhythym Respiratory: no respiratory distress, no rales or rhonchi, clear to auscultation Gastrointestinal: normoactive bowel sounds, soft, non-tender abdomen Skin: warm Musculoskeletal: full muscle strength, other (b/l 1-2+ LE pitting edema) Neurologic: AAOx3 Psychiatric: interacting appropriately ICD10 Worksheet Patient Problems: Problems Problem Status Onset Pulmonary embolism Acute Syncope Acute Abdominal discomfort Acute Pelvic mass in female Acute Vomiting Acute
--- NOTE | 2016-05-25 10:52 | WOCRNPDOC ---
WOCRN Advanced Assessment Note - Skin Integrity Problem, Advanced Assess Right Ear Pressure Injury Dressing Type: Open to Air Site Measurement - Head-to-Toe Length X Width X Depth (cm): 0.3x0.2x0.1 Pressure Injury Stage: Stage 2 Pressure Injury Present on Admit: No Skin Integrity Problem Comment: Cushions in place. Left Ear Pressure Injury Dressing Type: Open to Air Site Measurement - Head-to-Toe Length X Width X Depth (cm): 0.4x0.2x0 Pressure Injury Stage: Stage 1 Pressure Injury Present on Admit: No Skin Integrity Problem Comment: Cushions in place. Continue preventative/ offloading cushions. Will round again in one week.
[2016-05-25 11:17] LABS: IONIZED CALCIUM 0.98 MMOL/L (1.12-1.30)
[2016-05-25] MEDS: ONDANSETRON 4 MG/2 ML VIAL IVP PRN ×2 (12:46→19:32)
[2016-05-25] MEDS ORDERED: CALCIUM GLUCONATE 50 ML IV ONE (13:41)
[2016-05-25] MEDS: NS 1,000 ML IV SCH (13:46)
[2016-05-25] MEDS ORDERED: WARFARIN SODIUM 2 MG TAB PO ONE (16:00)
[2016-05-25] MEDS: OLANZapine 5 MG TAB PO SCH (20:25)
[2016-05-26 05:16] LABS: IONIZED CALCIUM 1.04 MMOL/L (1.12-1.30)
[2016-05-26 05:44] LABS: INR 3.28 (0.83-1.16); PROTIME(PATIENT) 33.9 SEC (12.0-15.0)
[2016-05-26] MEDS ORDERED: CALCIUM GLUCONATE 50 ML IV ONE (07:48)
[2016-05-26] MEDS: ONDANSETRON 4 MG/2 ML VIAL IVP PRN (08:22)
[2016-05-26] MEDS: FLUDROCORTISONE ACETATE 0.1 MG TAB PO SCH (08:22)
[2016-05-26] MEDS: NS 1,000 ML IV SCH (08:22)
--- NOTE | 2016-05-26 10:43 | SOAPPROG ---
SOAP Progress Note Assessment/Plan: Assessment: * Syncope/Pulmonary emboli-now on coumadin, INR supratherapeutic at 3.2. Requiring 1L n.c. * Orthostatic hypotension-unclear etiology, but may be related to PE's and RV strain. no evidence thus far of adrenal insufficiency. She feels this may be a bit better today. * Metastatic melanoma-extensive metastasis (lung, liver, brain, adrenal) on ipilumumab/nivolumab. Thus far only two treatments, too early to assess response , but patient unsure she would want to continue. Agree with palliative care consult. * Nausea/anorexia-she didn't think marinol helped. appetite a bit better this morning. may be secondary to gerd. Trial of PPI * Deconditioning-patient lives in [place]. Feels she won't be able to safely go home. she is interested in rehab (daughter is an RN who has worked at rehab facility in [place]) * Hypocalcemia-? etiology. Ionized calcium low. PTH level is high. Currently receiving IV calcium. Follow for now Subjective: weak, interested in SNF for rehab Objective: Vital Signs Temp Pulse Resp BP Pulse Ox 36.4 C 94 20 114/66 98 05/26/16 07:50 05/26/16 10:05 05/26/16 07:50 05/26/16 10:05 05/26/16 07:50 Laboratory Results 05/25/16 03:44 05/25/16 03:44 05/25/16 05/26/16 05/27/16 05:59 05:59 05:59 Intake Total 2408 810 120 Output Total 700 150 Balance 1708 660 120 PT 33.9 SEC (12.0-15.0) H 05/26/16 04:25 INR 3.28 (0.83-1.16) H 05/26/16 04:25 Physical Exam - Physical Exam General Appearance: no apparent distress, other (appears weak) Respiratory: lungs clear (anteriorly) Abdomen: non-tender, soft Extremities: other (2+ bilateral edema) ICD10 Worksheet Patient Problems: Problems Problem Status Onset Pulmonary embolism Acute Syncope Acute Abdominal discomfort Acute Pelvic mass in female Acute Vomiting Acute
[2016-05-26] MEDS: LOPERAMIDE HCL 2 MG CAP PO PRN (12:13)
[2016-05-26] MEDS: PANTOPRAZOLE SODIUM 40 MG TAB PO SCH (12:13)
[2016-05-26] MEDS: WARFARIN SODIUM 1 MG TAB PO SCH (15:53)
[2016-05-26] MEDS: ONDANSETRON DISINTEGRATING 4 MG TAB PO PRN (17:43)
--- NOTE | 2016-05-26 18:56 | HOSPPROG ---
Hospitalist Progress Note Assessment/Plan: Assessment: 65 yo F p/w acute bilateral pulmonary emboli c/b acute hypoxic respiratory failure in setting of advanced metastatic melanoma Plan: # Acute bilateral PE / DVT: extensive b/l DVT and b/l high volume PE with severe RV strain on Echo w/ positive troponin - cont coumadin, lower dose, daily INR # Vaginal bleeding: large pelvic tumor and h/o leiomyomas, hgb stable, continue to trend. - consider .net programmer consult if persists # Orthostatic hypotension: suspect related to b/l PE's with severe rt heart strain, albeit she continues to feel poorly despite normalization of orthostatics s/p fludrocortisone - hemodynamically significant, lact 3.9 - cont fludrocort and daily orthostatic checks to gauge response - stopped IVF given e/o acute right side CHF # Acute right side CHF: RV dysfunction and dilation in the setting of PE w/ BNP elevated and clinically hypervolemic - holding on lasix until SBP stabilizes # Acute hypoxic respiratory failure: evidenced by SpO2 85% + tachypnea (RR 30) and symptomatic shortness of breath, 2/2 PE and CHF - cont on supp o2 # Metastatic melanoma: with extensive metastasis (pulmonary, hepatic, splenic, adrenal and intracranial), s/p xrt and chemotherapy. - appreciate consult by Dr. Mina - get palliative consult tomorrow # Generalized weakness: 2/2 deconditioning, resp failure, orthostasis - has SNF room available when medically ready # Nausea/anorexia: continues to have poor appetite and nausea. - dietary consult and zyprexa # Syncope: likely secondary to acute PE, no events on tele, DC # Pancytopenia: 2/2 chemotherapy, monitoring # Hyponatremia: likely hypovolemic, normalized with NS, cont to monitor # Hypocalcemia: unclear etiology, suspect secondary hyperparathyroidism, begin oral repletion Diet. Regular PPx. High risk, on coumadin Code. Full Dispo. ADD uncertain, pending stabilization of above Subjective: Patient reports she still feels poorly when she ambulates, feels lightheaded Objective: Vital Signs Temp Pulse Resp BP Pulse Ox 36.5 C 99 20 106/69 99 05/26/16 15:25 05/26/16 15:25 05/26/16 15:25 05/26/16 15:25 05/26/16 15:25 Laboratory Results 05/25/16 03:44 05/25/16 03:44 05/25/16 05/26/16 05/27/16 05:59 05:59 05:59 Intake Total 2408 810 120 Output Total 700 150 Balance 1708 660 120 PT 33.9 SEC (12.0-15.0) H 05/26/16 04:25 INR 3.28 (0.83-1.16) H 05/26/16 04:25 - Time Spent With Patient Time Spent with Patient: greater than 35 minutes Time Spent with Patient: Greater than 35 minutes spent on this patients care, greater than 50% of time spent counseling, educating, and coordinating care regarding the above mentioned plan. - Physical Exam Constitutional: not in pain, chronically ill appearing, No uncomfortable Cardiovascular: systolic murmur (2/6 at the sternum and apex), tachycardia, edema (Bilateral lower extremity edema), No irregularly irregular Respiratory: reduced air movement (Bilateral bases), inspiratory crackles ( Bilateral bases), No expiratory wheeze, No bronchial breath sounds Gastrointestinal: normoactive bowel sounds, soft, non-tender abdomen, no palpable masses Neurologic: AAOx3, sensation intact bilaterally Psychiatric: interacting appropriately, not anxious, not encephalopathic, thought process linear ICD10 Worksheet Patient Problems: Problems Problem Status Onset Abdominal discomfort Acute Vomiting Acute Pelvic mass in female Acute Syncope Acute Pulmonary embolism Acute
[2016-05-26] MEDS: CALCIUM CARB W/VIT D 500 MG TAB PO SCH (20:45)
[2016-05-26] MEDS: OLANZapine 5 MG TAB PO SCH (20:45)
[2016-05-27 05:07] LABS: IONIZED CALCIUM 1.06 MMOL/L (1.12-1.30)
[2016-05-27 05:24] LABS: ALANINE AMINOTRANSFERASE 32 IU/L (9-52); ALBUMIN 1.8 g/dL (3.5-5.0); ALKALINE PHOSPHATASE 94 IU/L (38-126); ANION GAP 2 mEq/L (8-16); ASPARTATE AMINOTRANSFERASE 21 IU/L (14-46); BILIRUBIN,TOTAL 0.7 mg/dL (0.1-1.4); CALCIUM 7.2 mg/dL (8.5-10.4); CARBON DIOXIDE 20 mEq/l (22-31); CHLORIDE 109 mEq/L (97-110); CREATININE 0.7 mg/dL (0.6-1.0); GLOMERULAR FILTRATION RATE > 60; GLUCOSE 79 mg/dL (70-100); SODIUM 131 mEq/L (134-144); TOTAL PROTEIN 3.9 g/dL (6.3-8.2)
[2016-05-27] MEDS ORDERED: FUROSEMIDE 20 MG/2 ML VIAL IVP ONE ×2 (09:06→17:49)
[2016-05-27] MEDS: PANTOPRAZOLE SODIUM 40 MG TAB PO SCH (09:22)
[2016-05-27] MEDS: FLUDROCORTISONE ACETATE 0.1 MG TAB PO SCH (09:22)
[2016-05-27] MEDS: CALCIUM CARB W/VIT D 500 MG TAB PO SCH ×2 (09:22→20:31)
[2016-05-27 10:14] LABS: % IMMATURE GRANULYOCYTES 1.6 % (0.0-1.1); ABSOLUTE IMMATURE GRANULOCYTES 0.05 10^3/uL (0.00-0.10); ADD DIFF? NO; ADD MORPH? NO; ADD SCAN? YES; FRAGMENT RBC FLAG 0 (0-99); HEMATOCRIT 33.2 % (38.0-47.0); HEMOGLOBIN 10.3 g/dL (12.6-16.3); LEFT SHIFT FLG 30 (0-99); LIPEMIA HEMOLYSIS FLAG 80 (0-99); MEAN CELL HEMOGLOBIN 27.3 pg (27.9-34.1); MEAN CELL VOLUME 88.1 fL (81.5-99.8); PLATELET CLUMPS FLAG 60 (0-99); PLATELET COUNT 103 10^3/uL (150-400); RED BLOOD CELL COUNT 3.77 10^6/uL (4.18-5.33); RED CELL DISTRIBUTION WIDTH 17.4 % (11.5-15.2)
[2016-05-27 10:16] LABS: ATYPICAL LYMPHOCYTE FLAG 130 (0-99)
[2016-05-27 10:18] LABS: INR 3.1 (0.83-1.16); PROTIME(PATIENT) 32.4 SEC (12.0-15.0)
[2016-05-27 11:13] LABS: SCAN POSITIVE
[2016-05-27 11:23] LABS: PLATELET ESTIMATE DECREASED (ADEQ); TOXIC GRANULATION PRESENT
--- NOTE | 2016-05-27 14:45 | SOAPPROG ---
SOAP Progress Note Assessment/Plan: Assessment: * Syncope/Pulmonary emboli: now on coumadin. * Orthostatic hypotension: unclear etiology, but may be related to PE's and RV strain. no evidence thus far of adrenal insufficiency. Seems to be a bit better symptomatically. * Metastatic melanoma: extensive metastasis (lung, liver, brain, adrenal) on ipilumumab/nivolumab. Thus far only two treatments, too early to assess response , but patient unsure she would want to continue. * * Hypocalcemia: vit D deficient (with secondary hyperparathyroidism). Will need replacement dose vit D (50,000 IU weekly for 8 weeks followed by recheck). * Deconditioning-patient lives in [place]. Feels she won't be able to safely go home. she is interested in rehab (daughter is an RN who has worked at rehab facility in [place]) 05/27/16 14:42 Subjective: Still very weak. Orthostasis may be a little better. O: VS reviewed, no orthostatics today. Gen: chronically ill appearing, NAD. Lungs: breathing comfortably. Laboratory Tests 05/27/16 05/27/16 05/27/16 04:50 04:55 04:55 WBC Hgb Hct Plt Count Sodium 131 L Potassium 4.0 Chloride 109 Carbon Dioxide 20 L Anion Gap 2 L BUN 10 Creatinine 0.7 Estimated GFR > 60 Glucose 79 Calcium 7.2 L Ionized Calcium 1.06 L 25-OH Vitamin D Total < 12.8 L 05/27/16 09:50 WBC 3.06 L Hgb 10.3 L Hct 33.2 L Plt Count 103 L Sodium Potassium Chloride Carbon Dioxide Anion Gap BUN Creatinine Estimated GFR Glucose Calcium Ionized Calcium 25-OH Vitamin D Total Objective: Vital Signs Temp Pulse Resp BP Pulse Ox 36.3 C 94 20 103/69 94 05/27/16 11:29 05/27/16 11:29 05/27/16 11:29 05/27/16 11:29 05/27/16 11:29 Laboratory Results 05/27/16 09:50 05/27/16 04:55 05/26/16 05/27/16 05/28/16 05:59 05:59 05:59 Intake Total 810 670 Output Total 150 500 250 Balance 660 170 -250 PT 32.4 SEC (12.0-15.0) H 05/27/16 09:50 INR 3.10 (0.83-1.16) H 05/27/16 09:50 ICD10 Worksheet Patient Problems: Problems Problem Status Onset Pulmonary embolism Acute Syncope Acute Abdominal discomfort Acute Pelvic mass in female Acute Vomiting Acute
[2016-05-27] MEDS ORDERED: ERGOCALCIFEROL 50,000 I.UNIT CAP PO ONE (14:46)
--- NOTE | 2016-05-27 15:46 | PDPCPN ---
Palliative Care Progress Note Assessment/Plan: Referring provider: Dr Lee Reason for consult: Complex medical decision making Symptom control HPI: Kristen Rivero is a 65 yo female with PMH metastatic melanoma admitted to the hospital after syncopal episode. Found to have bilateral pulmonary embolisms started on anti coagulation with RV heart strain. Recent 2 nd cycle of cancer treatment for new met disease dx 03/2016. Also s/p whole brain radiation. Hospitalization complicated by ongoing dizziness and weakness. Palliative care consulted for complex medical decision making. Met with Marcus and Kristen at the bedside today. Kristen explained how she had been doing pretty well up until this hospitalization. She states it is getting harder for her to want to continue with treatment when she is so weak. She states she would love to live forever but is realistic in understanding her disease and wanting quality of life not just quantity. For her quality of life means interacting with her family. She would hate to "just be lying around with my family having to care for me". Her hopes are for improvement in her strength so she can return back home and be able to do some simple things for herself. She is unsure about future chemo treatments but states if her strength does not return she does not see herself going through more treatment "just to be knocked down again". We discussed code status and filled out a MOST form with her wishes. Marcus supports her wishes and hopes she can improve in her strength. Assessment: Physical: - Pain: general uncomfortableness at times - tylenol PRN - Nausea/vomiting: - on zyprexa - encourage general diet - was on marinol for appetite but not working as well - started on PPI by oncology - diarrhea: on occasion - immodium PRN Emotional/psychological: doing ok has a lot of support from family. Advanced Care Planning: Is patient decisional?: Yes Code Status: DNR/DNI POA: Marcus is MDPOA Plan: [facility] at discharge. Will have outpatient palliative care follow up. Subjective: I'm so weak Objective: Social History: to Marcus for 49 years. 1 daughter lives locally. 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 Medication list reviewed ROS: General: fatigue, weakness ENT: negative Resp: negative GI: poor appetite, nausea/vomiting, diarrhea : negative MS: negative Skin: negative Neuro: negative Psych: negative Functional assessment: PPS: 50% Functional status: needs some assistance with ADLs. Vital Signs Temp Pulse Resp BP Pulse Ox 36.3 C 94 20 103/69 94 05/27/16 11:29 05/27/16 11:29 05/27/16 11:29 05/27/16 11:29 05/27/16 11:29 Laboratory Results 05/27/16 09:50 05/27/16 04:55 05/26/16 05/27/16 05/28/16 05:59 05:59 05:59 Intake Total 810 670 Output Total 150 500 250 Balance 660 170 -250 PT 32.4 SEC (12.0-15.0) H 05/27/16 09:50 INR 3.10 (0.83-1.16) H 05/27/16 09:50 Physical Exam - Physical Exam General Appearance: alert, no apparent distress Respiratory: No respiratory distress, No accessory muscle use Skin: normal color, warm/dry Extremities: pedal edema (trace) Neuro/Psych: alert, oriented x 3 ICD10 Worksheet Patient Problems: Problems Problem Status Onset Palliative care encounter Acute Pulmonary embolism Acute Syncope Acute Abdominal discomfort Acute Pelvic mass in female Acute Vomiting Acute - ICD10 Problem Qualifiers (1) Palliative care encounter
[2016-05-27] MEDS: WARFARIN SODIUM 1 MG TAB PO SCH (17:16)
--- NOTE | 2016-05-27 17:51 | HOSPPROG ---
Hospitalist Progress Note Assessment/Plan: Assessment: 65 yo F p/w acute bilateral pulmonary emboli c/b acute hypoxic respiratory failure and acute right-sided systolic CHF in setting of advanced metastatic melanoma Plan: # Acute bilateral PE / DVT: extensive b/l DVT and b/l high volume PE with severe RV strain on Echo w/ positive troponin - cont coumadin 1mg daily, lowered dose, daily INR # Vaginal bleeding: large pelvic tumor and h/o leiomyomas, hgb stable, continue to trend. - consider gas station operator consult if persists # Orthostatic hypotension: suspect related to b/l PE's with severe rt heart strain, albeit she continues to feel poorly despite normalization of orthostatics s/p fludrocortisone - initially hemodynamically significant, lact 3.9 - cont fludrocort and daily orthostatic checks to gauge response - stopped IVF given e/o acute right side CHF # Acute right side systolic CHF: RV dysfunction and dilation in the setting of PE w/ BNP elevated and clinically hypervolemic - initiated lasix IV today w/ good UOP, dose bid w/ supp K - strict I/O/weights - monitor Cr and SBP closely # Acute hypoxic respiratory failure: evidenced by SpO2 85% + tachypnea (RR 30) and symptomatic shortness of breath, 2/2 PE and CHF - cont on supp o2 # Metastatic melanoma: with extensive metastasis (pulmonary, hepatic, splenic, adrenal and intracranial), s/p xrt and chemotherapy. - appreciate consult by Dr. Sherwood - discussed palliative conference w/ pt and , recommended palliative care as outpt when she goes to SNF to help w/ goals conversations over the next few weeks w/ Dr. Hallman re: tx response and plans for any further tx # Generalized weakness: 2/2 deconditioning, resp failure, orthostasis - has SNF room available when medically ready # Nausea/anorexia: continues to have poor appetite and nausea. - dietary consult and zyprexa # Syncope: likely secondary to acute PE, no events on tele, DC # Pancytopenia: 2/2 chemotherapy, monitoring # Hyponatremia: likely hypovolemic initially, now hypervolemic/hypoperfusion component - improving w/ diuresis # Hypocalcemia: unclear etiology, suspect secondary hyperparathyroidism, begin oral repletion Diet. Regular PPx. High risk, on coumadin Code. Full Dispo. ADD uncertain, pending stabilization of above e Subjective: Discussed palliative options with the patient and her , she continues to feel weak Objective: Vital Signs Temp Pulse Resp BP Pulse Ox 35.8 C L 96 22 H 106/66 93 05/27/16 15:40 05/27/16 15:40 05/27/16 15:40 05/27/16 15:40 05/27/16 15:40 Laboratory Results 05/27/16 09:50 05/27/16 04:55 05/26/16 05/27/16 05/28/16 05:59 05:59 05:59 Intake Total 810 670 Output Total 150 500 250 Balance 660 170 -250 PT 32.4 SEC (12.0-15.0) H 05/27/16 09:50 INR 3.10 (0.83-1.16) H 05/27/16 09:50 - Time Spent With Patient Time Spent with Patient: greater than 35 minutes Time Spent with Patient: Greater than 35 minutes spent on this patients care, greater than 50% of time spent counseling, educating, and coordinating care regarding the above mentioned plan. - Physical Exam Constitutional: not in pain, chronically ill appearing, No uncomfortable Cardiovascular: systolic murmur (2/6 sternal), edema (2+ bilateral lower extremity), No irregularly irregular, No tachycardia Respiratory: inspiratory crackles (Bilateral bases), No reduced air movement, No expiratory wheeze, No bronchial breath sounds Gastrointestinal: normoactive bowel sounds, soft, non-tender abdomen, no palpable masses Neurologic: AAOx3, sensation intact bilaterally Psychiatric: interacting appropriately, not anxious, not encephalopathic, thought process linear ICD10 Worksheet Patient Problems: Problems Problem Status Onset Palliative care encounter Acute Pulmonary embolism Acute Syncope Acute Abdominal discomfort Acute Pelvic mass in female Acute Vomiting Acute
[2016-05-27] MEDS: POTASSIUM CL 20 MEQ TAB PO SCH ×2 (18:12→18:17)
[2016-05-27] MEDS: OLANZapine 5 MG TAB PO SCH (20:31)
[2016-05-28 05:12] LABS: ADD MORPH? NO; ADD SCAN? YES; FRAGMENT RBC FLAG 0 (0-99); HEMATOCRIT 32.1 % (38.0-47.0); HEMOGLOBIN 10.1 g/dL (12.6-16.3); LEFT SHIFT FLG 20 (0-99); LIPEMIA HEMOLYSIS FLAG 80 (0-99); MEAN CELL HEMOGLOBIN 28.1 pg (27.9-34.1); MEAN CELL HEMOGLOBIN CONCENTR. 31.5 g/dL (32.4-36.7); MEAN CELL VOLUME 89.2 fL (81.5-99.8); PLATELET CLUMPS FLAG 0 (0-99); PLATELET COUNT 104 10^3/uL (150-400); RED CELL DISTRIBUTION WIDTH 17.5 % (11.5-15.2)
[2016-05-28 05:18] LABS: INR 2.85 (0.83-1.16); PROTIME(PATIENT) 30.3 SEC (12.0-15.0)
[2016-05-28 05:24] LABS: ALANINE AMINOTRANSFERASE 31 IU/L (9-52); ALBUMIN 2.1 g/dL (3.5-5.0); ALKALINE PHOSPHATASE 109 IU/L (38-126); ANION GAP 7 mEq/L (8-16); ASPARTATE AMINOTRANSFERASE 22 IU/L (14-46); BILIRUBIN,TOTAL 0.8 mg/dL (0.1-1.4); CALCIUM 7.2 mg/dL (8.5-10.4); CARBON DIOXIDE 19 mEq/l (22-31); CHLORIDE 108 mEq/L (97-110); CREATININE 0.9 mg/dL (0.6-1.0); GLOMERULAR FILTRATION RATE > 60; GLUCOSE 79 mg/dL (70-100); POTASSIUM 3.7 mEq/L (3.5-5.2); SODIUM 134 mEq/L (134-144); TOTAL PROTEIN 4.3 g/dL (6.3-8.2)
[2016-05-28 05:52] LABS: ATYPICAL LYMPHOCYTE FLAG 150 (0-99)
[2016-05-28 06:46] LABS: ADD DIFF? YES; SCAN POSITIVE
[2016-05-28 06:50] LABS: PLATELET ESTIMATE DECREASED (ADEQ)
[2016-05-28 06:55] LABS: TOXIC GRANULATION PRESENT
[2016-05-28] MEDS: PANTOPRAZOLE SODIUM 40 MG TAB PO SCH (07:44)
[2016-05-28] MEDS: LOPERAMIDE HCL 2 MG CAP PO PRN ×2 (07:44→14:36)
[2016-05-28] MEDS ORDERED: FUROSEMIDE 20 MG/2 ML VIAL IVP SCH (09:00)
[2016-05-28] MEDS: FUROSEMIDE 20 MG/2 ML VIAL IVP SCH ×2 (10:32→14:34)
[2016-05-28] MEDS: POTASSIUM CL 20 MEQ TAB PO SCH ×2 (11:25→11:26)
[2016-05-28] MEDS: CALCIUM CARB W/VIT D 500 MG TAB PO SCH ×2 (11:26→20:06)
[2016-05-28] MEDS: FLUDROCORTISONE ACETATE 0.1 MG TAB PO SCH (11:26)
[2016-05-28] MEDS: ONDANSETRON 4 MG/2 ML VIAL IVP PRN (14:34)
--- NOTE | 2016-05-28 16:06 | HOSPPROG ---
Hospitalist Progress Note Assessment/Plan: INTERVAL SUMMARY & DAILY PROGRESS NOTE DATE OF ADMISSION: 05/17/2016 INTERVAL DIAGNOSES 1. Acute bilateral pulmonary emboli 2. Acute deep venous thrombosis 3. Acute orthostatic hypotension 4. Acute right-sided systolic congestive heart failure exacerbation 5. Acute hypoxic respiratory failure 6. Metastatic melanoma 7. Generalized weakness 8. Nausea and anorexia 9. Acute syncope 10. Pancytopenia secondary to chemotherapy 11. Acute vaginal bleeding 12. Acute hyponatremia 13. Acute hypocalcemia CONSULTATIONS Hematology Oncology PROCEDURES / IMAGING Echocardiogram demonstrating moderate to severe right-sided dysfunction CHIEF COMPLAINT Acute syncope SUBJECTIVE Patient reports she continues to feel weak, reports loss of consciousness during orthostatic vital sign check today HOSPITAL COURSE BY PROBLEM The patient presented with acute syncopal episode and was found to have bilateral pulmonary emboli and deep venous thrombosis as the source, in the setting of metastatic melanoma. She was initiated on systemic anticoagulation and she continued to experience generalized weakness as well as lightheadedness upon standing. She was found to be orthostatic, and fludrocortisone was initiated. She has continued to experience lightheaded symptoms upon standing and actually had a witnessed syncopal episode on 05/28, but she was not found to be hypotensive at that time. We repeated her orthostatic vital signs and she was found to not be orthostatic. Consequently I suspect the patient's symptoms of lightheadedness and even loss of consciousness may be more related to either exertional hypoxia or generalized deconditioning. Therefore, we will continue to actively diurese this patient given that she is significantly hypervolemic. Will continue to encourage slow transitions with assistance, and the patient will require [facility]. Assessment: 65 yo F p/w acute bilateral pulmonary emboli c/b acute hypoxic respiratory failure and acute right-sided systolic CHF in setting of advanced metastatic melanoma Plan: # Acute bilateral PE / DVT: extensive b/l DVT and b/l high volume PE with severe RV strain on Echo w/ positive troponin, secondary to hypercoagulable state from metastatic melanoma - cont coumadin 1mg daily, daily INR - will require outpatient INR monitoring through [facility] # Syncope: initial episode likely 2/2 PE and hypotension, but 05/28 event not 2/2 orthostatic hypotension, suspect more likely related to either exertional hypoxia vs. deconditioning - no conduction abnl noted on tele # Orthostatic hypotension: suspect related to b/l PE's with severe rt heart strain, albeit she continues to feel poorly despite normalization of orthostatics s/p fludrocortisone - initially hemodynamically significant, lact 3.9, w/ SBP 70s - cont fludrocort and daily orthostatic checks to gauge response - off IVF given e/o acute right side CHF # Acute right side systolic CHF: RV dysfunction and dilation in the setting of PE w/ BNP elevated and clinically hypervolemic - initiated lasix IV w/ good UOP, dose bid w/ supp K - strict I/O/weights - monitor Cr and SBP closely - currently not resulting in hypotension # Acute hypoxic respiratory failure: evidenced by SpO2 85% + tachypnea (RR 30) and symptomatic shortness of breath, 2/2 PE and CHF - cont on supp o2 - recommend always wearing o2, as it is unclear if she is having exertional hypoxia contributing to her syncope # Metastatic melanoma: with extensive metastasis (pulmonary, hepatic, splenic, adrenal and intracranial), s/p xrt and chemotherapy. - appreciate consult by Dr. Sherwood - discussed palliative conference w/ pt and , recommended palliative care as outpt when she goes to SNF to help w/ goals conversations over the next few weeks w/ Dr. Hallman re: tx response and plans for any further tx # Vaginal bleeding: large pelvic tumor and h/o leiomyomas, hgb stable, continue to trend. - consider bindery machine setter consult if persists # Generalized weakness: 2/2 deconditioning, resp failure, orthostasis - has SNF room available when medically ready # Nausea/anorexia: continues to have poor appetite and nausea. - dietary consult and zyprexa HS (marinol potentially exacerbating dizziness) # Pancytopenia: 2/2 chemotherapy, monitoring # Hyponatremia: likely hypovolemic initially, now hypervolemic/hypoperfusion component - improving w/ diuresis # Hypocalcemia: unclear etiology, suspect secondary hyperparathyroidism, begin oral repletion and high dose Vit D (continue weekly as outpt) Diet. Regular PPx. High risk, on coumadin Code. DNR Dispo. ADD 05/30, pending euvolemia Subjective: Patient loss consciousness earlier today while she was getting orthostatic vital signs Objective: Vital Signs Temp Pulse Resp BP Pulse Ox 36.3 C 99 16 108/72 98 05/28/16 15:36 05/28/16 15:36 05/28/16 15:36 05/28/16 15:36 05/28/16 15:36 Laboratory Results 05/28/16 04:52 05/28/16 04:52 05/27/16 05/28/16 05/29/16 05:59 05:59 05:59 Intake Total 670 650 Output Total 500 250 400 Balance 170 400 -400 PT 30.3 SEC (12.0-15.0) H 05/28/16 04:52 INR 2.85 (0.83-1.16) H 05/28/16 04:52 - Time Spent With Patient Time Spent with Patient: greater than 35 minutes Time Spent with Patient: Greater than 35 minutes spent on this patients care, greater than 50% of time spent counseling, educating, and coordinating care regarding the above mentioned plan. - Physical Exam Constitutional: no apparent distress, not in pain, chronically ill appearing, No uncomfortable Cardiovascular: systolic murmur (1/6 systolic murmur at the sternum ), edema (2 + bilateral lower extremity edema), No irregularly irregular, No tachycardia Respiratory: inspiratory crackles (Bilateral bases), No reduced air movement, No expiratory wheeze, No bronchial breath sounds Gastrointestinal: normoactive bowel sounds, soft, non-tender abdomen, no palpable masses Neurologic: AAOx3, sensation intact bilaterally, No weakness (Motor strength 5/ 5 bilateral lower extremity) Psychiatric: interacting appropriately, not anxious, not encephalopathic, thought process linear ICD10 Worksheet Patient Problems: Problems Problem Status Onset Abdominal discomfort Acute Vomiting Acute Pelvic mass in female Acute Syncope Acute Pulmonary embolism Acute Palliative care encounter Acute
[2016-05-28] MEDS: WARFARIN SODIUM 1 MG TAB PO SCH (16:59)
[2016-05-28] MEDS: OLANZapine 5 MG TAB PO SCH (20:06)
[2016-05-29 05:16] LABS: % IMMATURE GRANULYOCYTES 1.5 % (0.0-1.1); ABSOLUTE IMMATURE GRANULOCYTES 0.04 10^3/uL (0.00-0.10); ABSOLUTE NRBC COUNT 0.02 10^3/uL (0-0.01); ADD DIFF? NO; ADD MORPH? NO; ADD SCAN? YES; FRAGMENT RBC FLAG 0 (0-99); HEMATOCRIT 28.2 % (38.0-47.0); HEMOGLOBIN 8.8 g/dL (12.6-16.3); LEFT SHIFT FLG 30 (0-99); LIPEMIA HEMOLYSIS FLAG 80 (0-99); MEAN CELL HEMOGLOBIN 27.4 pg (27.9-34.1); MEAN CELL HEMOGLOBIN CONCENTR. 31.2 g/dL (32.4-36.7); MEAN CELL VOLUME 87.9 fL (81.5-99.8); MEAN PLATELET VOLUME 10.9 fL (8.7-11.7); NRBC-AUTO% 0.7 % (0.0-0.2); PLATELET CLUMPS FLAG 0 (0-99); PLATELET COUNT 102 10^3/uL (150-400); RED BLOOD CELL COUNT 3.21 10^6/uL (4.18-5.33); RED CELL DISTRIBUTION WIDTH 17.8 % (11.5-15.2)
[2016-05-29 05:23] LABS: ALANINE AMINOTRANSFERASE 28 IU/L (9-52); ALBUMIN 1.9 g/dL (3.5-5.0); ALKALINE PHOSPHATASE 102 IU/L (38-126); ANION GAP 4 mEq/L (8-16); ASPARTATE AMINOTRANSFERASE 18 IU/L (14-46); BILIRUBIN,TOTAL 0.6 mg/dL (0.1-1.4); CALCIUM 7.2 mg/dL (8.5-10.4); CARBON DIOXIDE 20 mEq/l (22-31); CHLORIDE 109 mEq/L (97-110); GLOMERULAR FILTRATION RATE 55; GLUCOSE 82 mg/dL (70-100); POTASSIUM 3.9 mEq/L (3.5-5.2); SODIUM 133 mEq/L (134-144); TOTAL PROTEIN 3.7 g/dL (6.3-8.2)
[2016-05-29 05:24] LABS: ATYPICAL LYMPHOCYTE FLAG 160 (0-99)
[2016-05-29 05:25] LABS: INR 2.49 (0.83-1.16); PROTIME(PATIENT) 27.2 SEC (12.0-15.0)
[2016-05-29 06:04] LABS: SCAN POSITIVE
[2016-05-29 06:10] LABS: PLATELET ESTIMATE DECREASED (ADEQ); POLYCHROMASIA 1+
[2016-05-29 06:11] LABS: LARGE PLATELETS PRESENT
[2016-05-29] MEDS: ONDANSETRON DISINTEGRATING 4 MG TAB PO PRN ×2 (08:35→18:08)
[2016-05-29] MEDS: PANTOPRAZOLE SODIUM 40 MG TAB PO SCH (08:35)
[2016-05-29] MEDS: FUROSEMIDE 20 MG/2 ML VIAL IVP SCH ×2 (08:36→16:35)
[2016-05-29] MEDS: CALCIUM CARB W/VIT D 500 MG TAB PO SCH ×2 (08:36→21:41)
[2016-05-29] MEDS: POTASSIUM CL 20 MEQ TAB PO SCH (08:36)
[2016-05-29] MEDS: FLUDROCORTISONE ACETATE 0.1 MG TAB PO SCH (08:36)
--- NOTE | 2016-05-29 13:32 | PDPCPN ---
Palliative Care Progress Note Assessment/Plan: HPI: Kristen Rivero is a 65 yo female with PMH metastatic melanoma admitted to the hospital after syncopal episode. Found to have bilateral pulmonary embolisms started on anti coagulation with RV heart strain. Recent 2 nd cycle of cancer treatment for new met disease dx 03/2016. Also s/p whole brain radiation. Hospitalization complicated by ongoing dizziness and weakness. Palliative care consulted for complex medical decision making. Met with Kristen this afternoon with her Marcus and daughter Livia. Discussed code status and Kristen repeated she would not want to be in a "lingering state". She does not want to prolong a poor quality of life which to her means not being able to interact with her family. We discussed DNR again and Kristen feels she would want to allow for a natural and was confused by thinking DNR meant we would not treat her or other future problems she might have. Discussed DNR does not mean we would not do medical interventions. DNR means that she would still want rehospitalization including treatment with IV fluids, oxygen, medications, etc to treat future problems but that if her heart stops and she is not breathing then to not resuscitate. Assessment: Physical: - Pain: general uncomfortableness at times - tylenol PRN - Nausea/vomiting: - on zyprexa - encourage general diet - was on marinol for appetite but not working as well - started on PPI by oncology - can try natural otilio - family looking into medical marijuana - diarrhea: on occasion - Imodium PRN Emotional/psychological: doing ok has a lot of support from family. Advanced Care Planning: Is patient decisional?: Yes Code Status: DNR/DNI POA: Marcus is MDPOA Plan: [facility] at discharge. Will have outpatient palliative care with Greg follow up for symptom management. Subjective: Still with nausea and weakness Objective: Vital Signs Temp Pulse Resp BP Pulse Ox 36.4 C 100 20 107/67 91 L 05/29/16 12:00 05/29/16 12:00 05/29/16 12:00 05/29/16 12:00 05/29/16 12:00 Laboratory Results 05/29/16 04:56 05/29/16 04:56 05/28/16 05/29/16 05/30/16 05:59 05:59 05:59 Intake Total 650 500 200 Output Total 250 700 275 Balance 400 -200 -75 PT 27.2 SEC (12.0-15.0) H 05/29/16 04:56 INR 2.49 (0.83-1.16) H 05/29/16 04:56 Physical Exam - Physical Exam General Appearance: alert, no apparent distress Respiratory: No respiratory distress, No accessory muscle use Skin: normal color, warm/dry Extremities: pedal edema Neuro/Psych: alert, oriented x 3 ICD10 Worksheet Patient Problems: Problems Problem Status Onset Palliative care encounter Acute Pulmonary embolism Acute Syncope Acute Abdominal discomfort Acute Pelvic mass in female Acute Vomiting Acute - ICD10 Problem Qualifiers (1) Palliative care encounter
--- NOTE | 2016-05-29 16:23 | HOSPPROG ---
Hospitalist Progress Note Assessment/Plan: 65 yo F w metastatic melanoma admitted w syncope and found to have high clot burden PE PE: inr therapeutic R heart failure: repeat limited echo to eval recovery continue diuresis dc fludricortisone orthostasis :has resolved as above, dc florinef melanoma: chemo on hold nausea: multiple drug allergies continue zofran proph: anticoagulated Subjective: nausea. poor appetite. telemetry: no events (interp by me) Objective: Vital Signs Temp Pulse Resp BP Pulse Ox 36.5 C 98 19 109/70 98 05/29/16 15:48 05/29/16 15:48 05/29/16 15:48 05/29/16 15:48 05/29/16 15:48 Laboratory Results 05/29/16 04:56 05/29/16 04:56 05/28/16 05/29/16 05/30/16 05:59 05:59 05:59 Intake Total 650 500 200 Output Total 250 700 275 Balance 400 -200 -75 PT 27.2 SEC (12.0-15.0) H 05/29/16 04:56 INR 2.49 (0.83-1.16) H 05/29/16 04:56 - Physical Exam Constitutional: no apparent distress, appears nourished, not in pain Eyes: PERRL Ears, Nose, Mouth, Throat: moist mucous membranes, hearing normal Cardiovascular: regular rate and rhythym, no murmur, rub, or gallop Respiratory: no respiratory distress, no rales or rhonchi Gastrointestinal: normoactive bowel sounds, soft, non-tender abdomen Genitourinary: No david in urethra Skin: warm, normal color Musculoskeletal: full muscle strength Neurologic: AAOx3 ICD10 Worksheet Patient Problems: Problems Problem Status Onset Palliative care encounter Acute Pulmonary embolism Acute Syncope Acute Abdominal discomfort Acute Pelvic mass in female Acute Vomiting Acute
[2016-05-29] MEDS: WARFARIN SODIUM 1 MG TAB PO SCH (16:35)
[2016-05-29] MEDS: OLANZapine 5 MG TAB PO SCH (21:40)
[2016-05-30 05:12] LABS: % IMMATURE GRANULYOCYTES 1.1 % (0.0-1.1); ABSOLUTE IMMATURE GRANULOCYTES 0.03 10^3/uL (0.00-0.10); ADD DIFF? NO; ADD MORPH? NO; ADD SCAN? YES; FRAGMENT RBC FLAG 0 (0-99); HEMOGLOBIN 9.1 g/dL (12.6-16.3); LEFT SHIFT FLG 20 (0-99); LIPEMIA HEMOLYSIS FLAG 80 (0-99); MEAN CELL HEMOGLOBIN 27.8 pg (27.9-34.1); MEAN CELL HEMOGLOBIN CONCENTR. 31.4 g/dL (32.4-36.7); MEAN CELL VOLUME 88.7 fL (81.5-99.8); MEAN PLATELET VOLUME 10.6 fL (8.7-11.7); PLATELET CLUMPS FLAG 0 (0-99); PLATELET COUNT 94 10^3/uL (150-400); RED BLOOD CELL COUNT 3.27 10^6/uL (4.18-5.33); RED CELL DISTRIBUTION WIDTH 17.9 % (11.5-15.2)
[2016-05-30 05:20] LABS: INR 1.96 (0.83-1.16); PROTIME(PATIENT) 22.4 SEC (12.0-15.0)
[2016-05-30 05:33] LABS: ATYPICAL LYMPHOCYTE FLAG 120 (0-99)
[2016-05-30 06:31] LABS: SCAN NEGATIVE
[2016-05-30] MEDS: CALCIUM CARB W/VIT D 500 MG TAB PO SCH ×2 (09:44→20:17)
[2016-05-30] MEDS: PANTOPRAZOLE SODIUM 40 MG TAB PO SCH ×2 (09:45→18:14)
[2016-05-30] MEDS: POTASSIUM CL 20 MEQ TAB PO SCH (09:45)
[2016-05-30] MEDS: FUROSEMIDE 20 MG/2 ML VIAL IVP SCH ×2 (09:45→15:45)
[2016-05-30] MEDS: ONDANSETRON 4 MG/2 ML VIAL IVP PRN (10:10)
[2016-05-30] MEDS ORDERED: WARFARIN SODIUM 1 MG TAB PO ONE (11:30)
--- NOTE | 2016-05-30 11:46 | HOSPPROG ---
Hospitalist Progress Note Assessment/Plan: 65 yo F w metastatic melanoma admitted w syncope and found to have high clot burden PE PE: just subtherapeutic give add'l 1 mg today R heart failure: repeat limited echo to eval recovery continue diuresis dc fludricortisone orthostasis:has resolved as above, dc florinef melanoma: chemo on hold nausea: multiple drug allergies continue zofran trial of phenergan today proph: anticoagulated Subjective: still w nausea. tele: no events (interp). await Objective: Vital Signs Temp Pulse Resp BP Pulse Ox 36.4 C 94 20 94/62 L 99 05/30/16 07:54 05/30/16 07:54 05/30/16 07:54 05/30/16 07:54 05/30/16 07:54 Laboratory Results 05/30/16 04:57 05/29/16 04:56 05/29/16 05/30/16 05/31/16 05:59 05:59 06:59 Intake Total 500 500 Output Total 700 525 Balance -200 -25 PT 22.4 SEC (12.0-15.0) H 05/30/16 04:57 INR 1.96 (0.83-1.16) H 05/30/16 04:57 ICD10 Worksheet Patient Problems: Problems Problem Status Onset Abdominal discomfort Acute Vomiting Acute Pelvic mass in female Acute Syncope Acute Pulmonary embolism Acute Palliative care encounter Acute
[2016-05-30] MEDS: PROMETHAZINE HCL 25 MG TAB PO PRN ×2 (12:26→18:14)
[2016-05-30] MEDS: WARFARIN SODIUM 1 MG TAB PO SCH (15:45)
[2016-05-30] MEDS: LOPERAMIDE HCL 2 MG CAP PO PRN (17:18)
--- NOTE | 2016-05-30 17:32 | ECHO ---
[id number] + + [address] : : [place] [address] : : [phone] + + Adult Echocardiographic Report + + :Name: DYLAN DE LA ROSA Study Date: 05/29/2016 04:39 PM : : Hospital Admission Number: [id number] : :: 1950 Gender: Female : :Age: 65 yrs Race: WH : :Reason For Study: Eval RV : :History: PE : + + Left Ventricle Left ventricular systolic function is normal. Ejection Fraction = 55-60%%. Right Ventricle The right ventricular systolic function is mildly reduced. Tricuspid Valve There is trace tricuspid regurgitation. Right ventricular systolic pressure is normal. Conclusion This is a limited echo to evaluate RV size and function. Compared to May 19, 2016, RV function has markedly improved. There is trace tricuspid regurgitation. Right ventricular systolic pressure is normal. Compared to the previous exam of 05/19/15 the RV size has returned to normal with no severe pulmonary HTN Left ventricular systolic function is normal. Ejection Fraction = 55-60%%. Final Reading Physician: Moises Morrow electronically signed on 05/30/2016 05:30 PM Ordering Physician: Robert Islas Performed By: Byron Rich, CS
[2016-05-30] MEDS: OLANZapine 5 MG TAB PO SCH (20:17)
[2016-05-31 06:16] LABS: INR 1.93 (0.83-1.16); PROTIME(PATIENT) 22.2 SEC (12.0-15.0)
[2016-05-31] MEDS: PROMETHAZINE HCL 25 MG TAB PO PRN (10:03)
[2016-05-31] MEDS ORDERED: ENOXAPARIN 120 MG/0.8 ML SYR SC ONE (11:00)
--- NOTE | 2016-05-31 11:03 | HOSPPROG ---
Hospitalist Progress Note Assessment/Plan: 65 yo F w metastatic melanoma admitted w syncope and found to have high clot burden PE PE: give lovenox 1.5mg/kg now increase warfarin to 2 daily R heart failure: R heart function vastly improved edema: R heart failure plus low albumin 1. joe's 2. increase lasix to 80 mg po bid 3. low albumin is slowing diuresis orthostasis: has resolved as above, dona pineda melanoma: chemo on hold nausea: multiple drug allergies continue zofran trial of phenergan today proph: anticoagulated Subjective: still nauseated although did have relief from phenergan Objective: Vital Signs Temp Pulse Resp BP Pulse Ox 36.3 C 97 18 123/81 H 91 L 05/31/16 08:00 05/31/16 08:00 05/31/16 08:00 05/31/16 08:00 05/31/16 08:00 Laboratory Results 05/30/16 04:57 05/29/16 04:56 05/30/16 05/31/16 06/01/16 04:59 05:59 05:59 Intake Total Output Total Balance PT 22.2 SEC (12.0-15.0) H 05/31/16 05:23 INR 1.93 (0.83-1.16) H 05/31/16 05:23 - Physical Exam Constitutional: no apparent distress, appears nourished, not in pain Eyes: PERRL, anicteric sclera Ears, Nose, Mouth, Throat: moist mucous membranes, hearing normal Cardiovascular: regular rate and rhythym, no murmur, rub, or gallop, edema Respiratory: no respiratory distress, no rales or rhonchi Gastrointestinal: normoactive bowel sounds, soft, non-tender abdomen Genitourinary: No david in urethra Skin: warm, normal color Musculoskeletal: full muscle strength Neurologic: AAOx3 ICD10 Worksheet Patient Problems: Problems Problem Status Onset Palliative care encounter Acute Pulmonary embolism Acute Syncope Acute Abdominal discomfort Acute Pelvic mass in female Acute Vomiting Acute
[2016-05-31] MEDS: CALCIUM CARB W/VIT D 500 MG TAB PO SCH (11:07)
[2016-05-31] MEDS: PANTOPRAZOLE SODIUM 40 MG TAB PO SCH (11:07)
[2016-05-31] MEDS: FUROSEMIDE 20 MG/2 ML VIAL IVP SCH (11:07)
[2016-05-31] MEDS: POTASSIUM CL 20 MEQ TAB PO SCH (11:07)
[2016-05-31 12:19] LABS: ANION GAP 9 mEq/L (8-16); CALCIUM 7.2 mg/dL (8.5-10.4); CARBON DIOXIDE 17 mEq/l (22-31); CHLORIDE 105 mEq/L (97-110); CREATININE 1.1 mg/dL (0.6-1.0); GLOMERULAR FILTRATION RATE 50; GLUCOSE 88 mg/dL (70-100); POTASSIUM 3.8 mEq/L (3.5-5.2); SODIUM 131 mEq/L (134-144)
[2016-05-31] MEDS: PROMETHAZINE HCL 25 MG SUPPR PR PRN (15:02)
[2016-05-31] MEDS: FUROSEMIDE 80 MG TAB PO SCH (15:36)
[2016-05-31] MEDS: WARFARIN SODIUM 1 MG TAB PO SCH (15:37)
[2016-05-31] MEDS: LOPERAMIDE HCL 2 MG CAP PO PRN (15:41)
[2016-05-31] MEDS: OLANZapine 5 MG TAB PO SCH (22:05)
[2016-06-01 06:04] LABS: INR 2.38 (0.83-1.16); PROTIME(PATIENT) 26.2 SEC (12.0-15.0)
[2016-06-01 06:07] LABS: ANION GAP 8 mEq/L (8-16); CARBON DIOXIDE 18 mEq/l (22-31); CHLORIDE 104 mEq/L (97-110); CREATININE 1.1 mg/dL (0.6-1.0); GLOMERULAR FILTRATION RATE 50; GLUCOSE 78 mg/dL (70-100); POTASSIUM 3.1 mEq/L (3.5-5.2); SODIUM 130 mEq/L (134-144)
[2016-06-01] MEDS: FUROSEMIDE 80 MG TAB PO SCH ×2 (09:52→15:29)
[2016-06-01] MEDS: PANTOPRAZOLE SODIUM 40 MG TAB PO SCH (09:52)
[2016-06-01] MEDS: PROMETHAZINE HCL 25 MG SUPPR PR PRN ×2 (10:13→18:45)
--- NOTE | 2016-06-01 11:18 | HOSPPROG ---
Hospitalist Progress Note Assessment/Plan: 65 yo F w metastatic melanoma admitted w syncope and found to have high clot burden PE PE: inr therapeutic RV HK improved R heart failure: R heart function vastly improved edema: R heart failure plus low albumin 1. joe's 2. increase lasix to 80 mg po bid 3. low albumin is slowing diuresis orthostasis: has resolved as above, dc miriam melanoma: chemo on hold nausea: multiple drug allergies continue zofran success w pr phenergan proph: anticoagulated dispo: to SNF when bed available Subjective: nausea much improved after suppository Objective: Vital Signs Temp Pulse Resp BP Pulse Ox 36.3 C 93 18 93/63 L 97 06/01/16 06:54 06/01/16 06:54 06/01/16 06:54 06/01/16 06:54 06/01/16 06:54 Laboratory Results 05/30/16 04:57 06/01/16 05:35 05/31/16 06/01/16 06/02/16 05:59 05:59 05:59 Intake Total 660 Output Total 475 Balance 185 PT 26.2 SEC (12.0-15.0) H 06/01/16 05:35 INR 2.38 (0.83-1.16) H 06/01/16 05:35 - Physical Exam Constitutional: no apparent distress, appears nourished Eyes: PERRL, anicteric sclera Ears, Nose, Mouth, Throat: moist mucous membranes, hearing normal Cardiovascular: regular rate and rhythym, no murmur, rub, or gallop Respiratory: no respiratory distress, no rales or rhonchi Gastrointestinal: normoactive bowel sounds, soft, non-tender abdomen Genitourinary: No david in urethra Skin: warm, normal color Musculoskeletal: full muscle strength Neurologic: AAOx3 ICD10 Worksheet Patient Problems: Problems Problem Status Onset Palliative care encounter Acute Pulmonary embolism Acute Syncope Acute Abdominal discomfort Acute Pelvic mass in female Acute Vomiting Acute
--- NOTE | 2016-06-01 12:09 | WOCRNPDOC ---
WOCRN Advanced Assessment Note - Skin Integrity Problem, Advanced Assess Right Ear Pressure Injury Dressing Type: Open to Air Skin Integrity Problem Comment: Greatly improved. No more open wound. Cushions in place. Continue care. Please reconsult wound care prn. Left Ear Pressure Injury Dressing Type: Open to Air Skin Integrity Problem Comment: Cushions in place. Continue care. Please reconsult wound care prn.
--- NOTE | 2016-06-01 13:15 | SOAPPROG ---
SOAP Progress Note Assessment/Plan: Assessment/Plan: 65 yo woman w Stage IV melanoma on nivolumab/ipilimumab who p/w syncope discovered to have PE's w RV strain 1. PE - now on Coumadin, Echo has improved 2. Orthostatic hypotension - likely related to #1, no e/o adrenal insufficiency at this time 3. Metastatic melanoma - extensive metastasis; s/p 2 treatment of nivo/ipi Too early to assess response but pt unsure if she wants to continue 4. HypoCa - Vit D deficiency w secondary hyperparathyroidism will need replacement w Vit D 50,000 IU weekly for 8 weeks 5. Deconditioning - d/c to rehab, possibly tomorrow 6. Nausea and diarrhea - may be due to treatments; suggest maximizing anti- emetics and anti-diarrheals prior to d/c colitis is certainly a risk factor w combo immunotherapy 7. pancytopenia - multifactorial , monitor 06/01/16 13:10 06/01/16 13:16 06/01/16 13:17 Subjective: Pt feeling very weak and fatigues Denies bleeding although has seem some bloodly stools w hemorrhoids Palliative care has seen Objective: Vital Signs Temp Pulse Resp BP Pulse Ox 36.3 C 93 18 93/63 L 97 06/01/16 06:54 06/01/16 06:54 06/01/16 06:54 06/01/16 06:54 06/01/16 06:54 Laboratory Results 05/30/16 04:57 06/01/16 05:35 05/31/16 06/01/16 06/02/16 05:59 05:59 05:59 Intake Total 660 Output Total 475 Balance 185 PT 26.2 SEC (12.0-15.0) H 06/01/16 05:35 INR 2.38 (0.83-1.16) H 06/01/16 05:35 Gen - fatigues appearing, chronically ill HEENT - anicteric CV - RRR, no rub Chest - CTAB Abd - soft, NT, BS+ Ext - mod edema bilaterally Neuro - nonfocal ICD10 Worksheet Patient Problems: Problems Problem Status Onset Palliative care encounter Acute Pulmonary embolism Acute Syncope Acute Abdominal discomfort Acute Pelvic mass in female Acute Vomiting Acute
[2016-06-01] MEDS: ACETAMINOPHEN 325 MG TAB PO PRN ×3 (13:40→21:17)
[2016-06-01] MEDS: WARFARIN SODIUM 1 MG TAB PO SCH (15:29)
[2016-06-01] MEDS: LOPERAMIDE HCL 2 MG CAP PO PRN ×2 (18:44→21:17)
[2016-06-01] MEDS: OLANZapine 5 MG TAB PO SCH (21:18)
[2016-06-01] MEDS: oxyCODONE IR 5 MG TAB PO PRN (22:10)
[2016-06-02 06:15] LABS: INR 3.04 (0.83-1.16); PROTIME(PATIENT) 31.9 SEC (12.0-15.0)
[2016-06-02 07:43] LABS: ANION GAP 7 mEq/L (8-16); CALCIUM 6.9 mg/dL (8.5-10.4); CARBON DIOXIDE 19 mEq/l (22-31); CHLORIDE 103 mEq/L (97-110); CREATININE 1.1 mg/dL (0.6-1.0); GLOMERULAR FILTRATION RATE 50; GLUCOSE 70 mg/dL (70-100); POTASSIUM 2.8 mEq/L (3.5-5.2); SODIUM 129 mEq/L (134-144)
[2016-06-02] MEDS: PANTOPRAZOLE SODIUM 40 MG TAB PO SCH (08:09)
[2016-06-02] MEDS: FUROSEMIDE 80 MG TAB PO SCH (08:09)
[2016-06-02] MEDS: PROMETHAZINE HCL 25 MG SUPPR PR PRN (11:52)
--- NOTE | 2016-06-02 13:22 | GCON ---
[f rep st] CONSULTATION PALLIATIVE MEDICINE CONSULT DATE OF CONSULTATION: 06/01/2016 CHIEF COMPLAINT: I was asked by the inpatient palliative care team to see this patient for transiti on to outpatient palliative care management, symptom control, and ongoing goals of care discussion. HISTORY OF PRESENT ILLNESS: This is a 65-year-old female who was first diagnosed with melanoma in . She was recently found to have recurrence, including metastases to the brain. She did receive radiation to the brain, and was also started on reslizumab plus ipilimumab on April 21. She to lerated her first treatment, however, the second one has resulted in severe nausea. In addition, arielle witt had been on Marinol and had near-syncope. She was found to have bilateral pulmonary emboli. She is now on Coumadin and is therapeutic. Unfortunately, she remains with nearly persistent and severe nausea and vomiting. She is unable to keep almost anything down. She has tried Zofran with minima l success and has recently been started on Zyprexa at bedtime. She also receives as needed Phenerga n suppositories. The first suppository seemed to help, but now they have less of an effect. The on ly medication she currently has scheduled for nausea is the Zyprexa. She has vomited so much that n ow she just has the dry heaves. She has complaints of diarrhea, and has not had problems with const ipation. The constant vomiting has resulted in a new abdominal pain that started just this week. S he has flares with the pain that occur just right of midline and are centrally located. She describ es the pain as crampy and achy and sharp. The episodes can last up to an hour. There was no relief with massage. She has not tried any pain medications. She generally just waits the pain out. It often wakes her up from sleep. She rates the pain an 8/10. It does not affect her breathing. She has not identified any clear aggravating or alleviating factors. She has also developed new back pa in. Since her last hospitalization, she has been started on oxygen. She has not needed it before. She does not have dyspnea at rest, but her seems to note she has dyspnea with activity, alt chelsy she denies this. The patient and her are not aware of what her prognosis might be. They also do not know how any attempts at ongoing chemotherapy may affect her prognosis. They are not certain if it would gi ve her additional weeks or months or what time they could expect. They are interested to learn what quality of life she would have with ongoing treatment as well as quantity, as well as what the effe ct would be without treatment. The patient does not feel she can live with this much pain, nausea, and suffering much longer, especially if there was no hope for improvement. She does note that she wants to donate her body to a melanoma research society in [place]. She is aware she will be dischar ged from the hospital soon and this causes her anxiety. I offered her reassurance that while the pe was for her to have physical therapy and get stronger, if she did not feel this was benefitting h er, she would not need to pursue this. She states to me "I am not sure how much more I can take." The has been planning on calling Dr. Hallman and talking about options for port as well as regino motherapy, and now will also confirm prognosis. The patient becomes tearful when she thinks about p assing on and how much she will miss her and grandchildren. She is grateful that she did rossi ve the past 8 years after original diagnosis to enjoy them. Social history, family history, past medical history as documented in initial history and physical f or this hospital stay. CURRENT MEDICATIONS: Include acetaminophen 650 mg every 4 hours as needed, calcium with vitamin D 5 00 mg twice daily, ergocalciferol 50,000 international units every Wednesday, Lasix 80 mg twice yasmeen y, loperamide 4 mg 4 times daily, olanzapine 2.5 mg at bedtime, Zofran 4-8 mg IV push or p.o. every 4 hours as needed, Protonix 40 mg daily, Phenergan suppository 25 mg per rectum every 6 hours as nee ded, Coumadin 2 mg daily. SIGNIFICANT LABORATORY DATA: Includes an albumin of 1.9, white blood cell count of 2.79, hemoglobin of 9.1, and platelets of 94. PHYSICAL EXAMINATION: VITAL SIGNS: Shows a blood pressure of 93/63, heart rate of 93. GENERAL: S he is alert, oriented x3. Appropriate affect given clinical situation. She does have dry heaves re peatedly during visit. HEENT: Normocephalic/atraumatic. Pupils are symmetric and reactive. Mucou s membranes are moist. Hearing is intact. CARDIOVASCULAR: Regular rate and rhythm. She has +3 lo wer extremity edema bilaterally. RESPIRATORY: Diminished throughout, but overall clear. NEUROLOGI C: Alert and oriented x3. Able to follow all commands. Nonfocal neurological exam. ASSESSMENT AND PLAN: This is a 65-year-old female with a diagnosis of metastatic melanoma including metastases to the brain. She has undergone radiation for her brain metastases. 1. Nausea. I would recommend increasing the frequency of scheduled medications. Currently, she is only on Zyprexa at bedtime. I would schedule the Zofran every 4 hours while awake, even though the patient does not believe it works for her, it has never been scheduled. In addition, I would use H aldol 1 mg every 4 hours as needed for breakthrough nausea. Should she receive no relief from the s cheduled Zofran, I would replace the scheduled Zofran with scheduled Haldol. I encouraged her to co ntinue the Phenergan suppositories while on the scheduled Zofran, and I would also schedule these. However, if she is switched to scheduled Haldol, I would not use scheduled Haldol and Phenergan at t he same time. 2. Pain. This is a new complaint for the patient, adding to her burden of suffering. I discussed this with her hospitalist and recommended he add Roxanol 5 mg at bedtime scheduled and also provide her a p.r.n. dose of morphine. GOALS OF CARE: I did confirm with the patient that she wishes to allow a natural . She is yunior re of the hospice benefit and if she were aware of a limited prognosis and ongoing suffering from fu rther attempts at chemotherapy, it seems she would prefer this option to ongoing pursuit of curative treatments. I updated Dr. Hallman regarding this. Hopefully, he will be able to provide more inform ation regarding prognosis and the effect on the patient's quality of life with ongoing chemotherapy. Please note, approximately 60 minutes were spent in this visit, assessing the patient's pain, nausea , goals of care, updating her care team, reviewing the chart, and coordinating with Case Management. /[id number]/MODL
[2016-06-02] MEDS ORDERED: HALOPERIDOL 1 MG TAB PO PRN (13:49)
--- NOTE | 2016-06-02 13:54 | HOSPPROG ---
Hospitalist Progress Note Assessment/Plan: 65 yo F with hx of metastatic melanoma s/p recent XRT and chemotherapy admitted with syncope in setting of acute bilateral PE # acute bilateral PE: continued on coumadin, INR has been therapeutic # right sided heart failure: with repeat echo showing improved right heart function, continues to have BLE edema but improved on lasix # lower extremity edema: related in large part to above as well as BLE DVT, low albumin, limited mobility. continued lasix 80 bid. # BLE DVT: in setting of above # acute hypoxic respiratory failure: in setting of PE and likely atelectasis with limited mobility since admission, was initially as low as 85% on RA but now in high 90s on 1L. Will continue to wean as able. # nausea/vomiting: now is patients biggest complaint and limiting her ability to take much PO. Appreciate palliative consult, they are recommending scheduled zofran with prn haldol and scheduled phenergan as well as continued scheduled zyprexa. If zofran scheduled is offering no relief, they are recommending switching to scheduled haldol. Will need to monitor closely for s/s of EPS # elizabeth: creat has been trending slowly up, in setting of poor po intake and n/v as well as lasix and hypotension, likely HD mediated. Will hold lasix today, consider small fluid bolus if creat not improving # hyponatremia: likely hypovolemi hyponatremia in setting of n/v, lasix, poor po intake. As above # generalized weakness and deconditioning: continues to have significant difficulty ambulating and dizzyness when she gets up. PT/OT involved. Will dc to snf. # metastatic melanoma: with extensive metastasis, has intracranial mets and has now undergone xrt and chemotherapy. Oncology has evaluated patient while in house, they note it is too early to assess response to chemo, patient is uncertain if she would like to continue regardless. # pancytopenia: 2/2 chemotherapy, stable # dispo: IP status, will dc to SNF when she is feeling a bit better, likely if n/v controlled by then DNR Patient newly in my care. Records since my last clinical evaluation including palliative consult notes and oncology consults reviewed and summarized as above Subjective: no significant overnight events, patient has had persistent n/v this am, she notes she has not had any nausea medications yet today Objective: Vital Signs Temp Pulse Resp BP Pulse Ox 36.3 C 100 18 127/80 H 94 06/02/16 07:01 06/02/16 11:05 06/02/16 07:01 06/02/16 11:05 06/02/16 11:05 Laboratory Results 05/30/16 04:57 06/02/16 05:11 06/01/16 06/02/16 06/03/16 05:59 05:59 05:59 Intake Total 660 550 Output Total 475 Balance 185 550 PT 31.9 SEC (12.0-15.0) H 06/02/16 05:11 INR 3.04 (0.83-1.16) H 06/02/16 05:11 chronically ill appearing, awake alert anicteric op clear rrr, mildly tachy cta with dec bs at bases soft nt nd ble edema, bilateral calf tenderness warm dry well perfused oriented appropriate ICD10 Worksheet Patient Problems: Problems Problem Status Onset Abdominal discomfort Acute Vomiting Acute Pelvic mass in female Acute Syncope Acute Pulmonary embolism Acute Palliative care encounter Acute
[2016-06-02] MEDS: WARFARIN SODIUM 1 MG TAB PO SCH (14:22)
[2016-06-02] MEDS: ONDANSETRON DISINTEGRATING 4 MG TAB PO SCH ×3 (14:22→23:31)
[2016-06-02] MEDS: PROMETHAZINE HCL 25 MG SUPPR PR SCH ×2 (17:26→23:31)
[2016-06-02] MEDS: oxyCODONE IR 5 MG TAB PO PRN (17:53)
[2016-06-03] MEDS: ONDANSETRON DISINTEGRATING 4 MG TAB PO SCH ×6 (02:51→23:42)
[2016-06-03] MEDS ORDERED: HALOPERIDOL LACT 5 MG/ML INJ IM PRN (03:52)
[2016-06-03 05:13] LABS: % IMMATURE GRANULYOCYTES 0.4 % (0.0-1.1); ABSOLUTE IMMATURE GRANULOCYTES 0.01 10^3/uL (0.00-0.10); ADD DIFF? NO; ADD MORPH? NO; ADD SCAN? NO; ATYPICAL LYMPHOCYTE FLAG 30 (0-99); FRAGMENT RBC FLAG 0 (0-99); HEMATOCRIT 31.2 % (38.0-47.0); HEMOGLOBIN 9.8 g/dL (12.6-16.3); LEFT SHIFT FLG 20 (0-99); LIPEMIA HEMOLYSIS FLAG 80 (0-99); MEAN CELL HEMOGLOBIN 27.5 pg (27.9-34.1); MEAN CELL HEMOGLOBIN CONCENTR. 31.4 g/dL (32.4-36.7); MEAN CELL VOLUME 87.4 fL (81.5-99.8); MEAN PLATELET VOLUME 11.4 fL (8.7-11.7); PLATELET CLUMPS FLAG 0 (0-99); PLATELET COUNT 112 10^3/uL (150-400); RED BLOOD CELL COUNT 3.57 10^6/uL (4.18-5.33); RED CELL DISTRIBUTION WIDTH 18.3 % (11.5-15.2)
[2016-06-03 05:24] LABS: INR 4.15 (0.83-1.16); PROTIME(PATIENT) 40.9 SEC (12.0-15.0)
[2016-06-03 05:36] LABS: ANION GAP 10 mEq/L (8-16); CALCIUM 6.6 mg/dL (8.5-10.4); CARBON DIOXIDE 21 mEq/l (22-31); CHLORIDE 100 mEq/L (97-110); CREATININE 1.2 mg/dL (0.6-1.0); GLOMERULAR FILTRATION RATE 45; GLUCOSE 74 mg/dL (70-100); SODIUM 131 mEq/L (134-144)
[2016-06-03] MEDS: PROMETHAZINE HCL 25 MG SUPPR PR SCH ×3 (06:42→19:00)
[2016-06-03] MEDS: CALCIUM CARB W/VIT D 500 MG TAB PO SCH ×2 (08:35→23:44)
[2016-06-03] MEDS ORDERED: ERGOCALCIFEROL 50,000 I.UNIT CAP PO SCH (09:00)
[2016-06-03] MEDS: PANTOPRAZOLE SODIUM 40 MG TAB PO SCH (09:58)
[2016-06-03] MEDS ORDERED: morphINE 10 MG/0.5 ML UDSYR PO PRN (11:43)
[2016-06-03] MEDS ORDERED: PROTOCOL K PHOSPHATE 1 DOSE IV PRN (11:47)
[2016-06-03] MEDS ORDERED: PROTOCOL MAGNESIUM 1 DOSE IV PRN (11:47)
[2016-06-03] MEDS ORDERED: PROTOCOL POTASSIUM 1 DOSE MISC PRN (11:47)
--- NOTE | 2016-06-03 11:57 | SOAPPROG ---
SOAP Progress Note Assessment/Plan: Assessment/Plan: 65 yo woman w Stage IV melanoma on nivolumab/ipilimumab who p/w syncope discovered to have PE's w RV strain 1. PE - now on Coumadin but holding due to elevated INR, Echo has improved 2. Orthostatic hypotension - likely related to #1, ? adrenal insufficiency was on florinef before 3. Metastatic melanoma - extensive metastasis; s/p 2 treatment of nivo/ipi Too early to assess response but pt unsure if she wants to continue 4. HypoCa - Vit D deficiency w secondary hyperparathyroidism will need replacement w Vit D 50,000 IU weekly for 8 weeks 5. Deconditioning - d/c to rehab, possibly tomorrow 6. Nausea and diarrhea - Nausea worse despite antiemetics CT abd/Pelvis pending to evaluate for other causes Recent brain MRI before XRT Will start prednisone 1mg/kg BID on off chance this is immune-mediated vs other ; steroids also a good antiemetic If she has adrenal insufficiency, pred should help as well 7. pancytopenia - multifactorial , monitor; better today 06/03/16 11:57 Subjective: nauseated dry heaving through day denies new pain Objective: Vital Signs Temp Pulse Resp BP Pulse Ox 36.4 C 99 18 100/72 98 06/03/16 07:55 06/03/16 07:55 06/03/16 07:55 06/03/16 07:55 06/03/16 07:55 Laboratory Results 06/03/16 04:58 06/03/16 04:58 06/02/16 06/03/16 06/04/16 05:59 05:59 05:59 Intake Total 550 500 Output Total 100 500 Balance 550 400 -500 PT 40.9 SEC (12.0-15.0) H D 06/03/16 04:58 INR 4.15 (0.83-1.16) H 06/03/16 04:58 Gen - ill appearing HEENT - anicteric CV - RRR Abd- soft, NTTP, BS+ Ext - mild bilat edema Neuro - nonfocal ICD10 Worksheet Patient Problems: Problems Problem Status Onset Palliative care encounter Acute Pulmonary embolism Acute Syncope Acute Abdominal discomfort Acute Pelvic mass in female Acute Vomiting Acute
--- NOTE | 2016-06-03 12:48 | PDPCPN ---
Palliative Care Progress Note Assessment/Plan: HPI: Kristen Rivero is a 65 yo female with PMH metastatic melanoma admitted to the hospital after syncopal episode. Found to have bilateral pulmonary embolisms started on anti coagulation with RV heart strain. Recent 2 nd cycle of cancer treatment for new met disease dx 03/2016. Also s/p whole brain radiation. Hospitalization complicated by ongoing dizziness, nausea/vomiting and weakness. Palliative care consulted for complex medical decision making. Kristen seen this afternoon. She states she is still very nauseated with occasional dry heaving and vomiting. On scheduled zofran, haldol PRN and scheduled zyprexa with Phenergan supp with no relief. Very weak and not able to work with therapies because of symptoms. Discussed with hospitalist recommendation for steroids for symptom control if ok with oncology. Ct of abdomen today to look for any reversible causes. Kristen goal is still for rehab in hopes of improving strength to return back home. We did discuss potential to look into other options including hospice if she does not improve and that rehab may not be beneficial for her with her goals of spending time with her family at home. Assessment: Physical: - Pain: abdominal pain due to extensive mets - tylenol PRN - oxy IR PRN - steroids will also help with any inflammatory related pain from mets - Nausea/vomiting: - on zyprexa - encourage general diet - getting zofran anne and haldol frequently with no improvement - start steroids to see if this helps with symptom management - family looking into medical marijuana - diarrhea: on occasion - Imodium PRN Emotional/psychological: doing ok has a lot of support from family. Advanced Care Planning: Is patient decisional?: Yes Code Status: DNR/DNI POA: Marcus is MDPOA Plan: Goal is still hoping for improvement in symptoms and rehab at the [facility]. Outpatient palliative care has been set up with Greg. Will see what the ct shows and starting steroids. Will follow up again tomorrow for possible family meeting to discuss other options if no improvement. Subjective: I still have nausea, nothing is helping Objective: Vital Signs Temp Pulse Resp BP Pulse Ox 36.4 C 99 18 100/72 98 06/03/16 07:55 06/03/16 07:55 06/03/16 07:55 06/03/16 07:55 06/03/16 07:55 Laboratory Results 06/03/16 04:58 06/03/16 04:58 06/02/16 06/03/16 06/04/16 05:59 05:59 05:59 Intake Total 550 500 Output Total 100 500 Balance 550 400 -500 PT 40.9 SEC (12.0-15.0) H D 06/03/16 04:58 INR 4.15 (0.83-1.16) H 06/03/16 04:58 Physical Exam - Physical Exam General Appearance: alert, no apparent distress Respiratory: No accessory muscle use, No decreased breath sounds Skin: normal color, warm/dry Extremities: pedal edema Neuro/Psych: alert, oriented x 3 ICD10 Worksheet Patient Problems: Problems Problem Status Onset Palliative care encounter Acute Pulmonary embolism Acute Syncope Acute Abdominal discomfort Acute Pelvic mass in female Acute Vomiting Acute - ICD10 Problem Qualifiers (1) Palliative care encounter
--- NOTE | 2016-06-03 12:52 | HOSPPROG ---
Hospitalist Progress Note Assessment/Plan: 65 yo F with hx of metastatic melanoma s/p recent XRT and chemotherapy admitted with syncope in setting of acute bilateral PE # acute bilateral PE: continued on coumadin, INR supratherapeutic today in setting of essentially no po intake, holding warfarin today # right sided heart failure: with repeat echo showing improved right heart function, continues to have BLE edema but improved on lasix # persistent n/v: to the point where she is not taking any PO. Appreciate palliative consult, started on scheduled zofran as well as prn haldol, scheduled phenergan and zyprexa and no real improvement. Undoubtedly due to widely metastatic cancer-- ? mechanical obstruction, but also has diffuse brain mets last noted on PET scan in Apr. Will repeat imaging of abdomen, discussed with palliative and oncology--adding steroids, f/u CT # elizabeth: creatinine continues to increase over the last couple of days in setting of very poor po intake and n/v as above. Has wanted to avoid having another IV placed but given continued increase in creatinine and inability to push fluids, will place IV and start IVF. Trending. Holding lasix # lower extremity edema: related in large part to above as well as BLE DVT, low albumin, limited mobility. Lasix held given above, elevate legs, joe hose. # BLE DVT: in setting of above # acute hypoxic respiratory failure: in setting of PE and likely atelectasis with limited mobility since admission, was initially as low as 85% on RA but now in high 90s on 1L. Will continue to wean as able. # hyponatremia: likely hypovolemic hyponatremia in setting of n/v, lasix, poor po intake. As above, starting IVF, trending # hypokalemia: repleting by electrolyte protocol, will check mg/phos as well # generalized weakness and deconditioning: continues to have significant difficulty ambulating and dizzyness when she gets up. PT/OT involved. Will dc to snf. 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 Oncology has evaluated patient while in house, they note it is too early to assess response to chemo, patient is uncertain if she would like to continue regardless. Suspect she is having progression of disease and this was discussed at length with patient and her as well as onc/palliative. They would mostly like to focus on comfort and note that if she is improving, she would consider more chemo, but at this point recognize that chemo not currently an option. # pancytopenia: 2/2 chemotherapy, improving # dispo: IP status, will dc to SNF vs hospice DNR Care plan reviewed with CM, oncology, palliative care. Reviewed course with present at bedside. > 45 minutes spent in care of this patient , more than 25 minutes spent in face to face counseling of patient and her regarding goals of care from [id number] Subjective: patient continues to have ongoing n/v with inability to tolerate much by mouth, pain increased, very weak--unable to get out of bed even to go to the bathroom and now using bed [place] Objective: Vital Signs Temp Pulse Resp BP Pulse Ox 36.4 C 99 18 100/72 98 06/03/16 07:55 06/03/16 07:55 06/03/16 07:55 06/03/16 07:55 06/03/16 07:55 Laboratory Results 06/03/16 04:58 06/03/16 04:58 06/02/16 06/03/16 06/04/16 05:59 05:59 05:59 Intake Total 550 500 Output Total 100 500 Balance 550 400 -500 PT 40.9 SEC (12.0-15.0) H D 06/03/16 04:58 INR 4.15 (0.83-1.16) H 06/03/16 04:58 chronically ill appearing, awake alert anicteric op clear rrr, mildly tachy cta with dec bs at bases soft nt nd ble edema, bilateral calf tenderness warm dry well perfused oriented appropriate ICD10 Worksheet Patient Problems: Problems Problem Status Onset Palliative care encounter Acute Pulmonary embolism Acute Syncope Acute Abdominal discomfort Acute Pelvic mass in female Acute Vomiting Acute
[2016-06-03] MEDS: predniSONE 20 MG TAB PO SCH ×2 (13:56→18:59)
[2016-06-03] MEDS ORDERED: IOPAMIDOL (ISOVUE-300) 100 ML BTL IV ONE (13:56)
[2016-06-03] MEDS: NS 1,000 ML IV SCH (13:56)
[2016-06-03] MEDS: LOPERAMIDE HCL 2 MG CAP PO PRN (13:57)
[2016-06-03] MEDS ORDERED: POTASSIUM CL 10 MEQ TAB PO ONE (14:10)
[2016-06-03 15:19] LABS: MAGNESIUM 1.4 mg/dL (1.6-2.3)
[2016-06-03] MEDS ORDERED: ALTEPLASE 2 MG VIAL IVP PRN (16:18)
[2016-06-03] MEDS ORDERED: MAGNESIUM SULF 2 GM/WATER 50 ML IV ONE (17:44)
[2016-06-03] MEDS: POTASSIUM Cl (KCl) 50 ML IV SCH ×2 (20:00→23:42)
[2016-06-03 20:45] LABS: POTASSIUM 2.7 mEq/L (3.5-5.2)
[2016-06-03] MEDS: OLANZapine 5 MG TAB PO SCH ×2 (23:42)
[2016-06-04] MEDS: POTASSIUM Cl (KCl) 50 ML IV SCH ×8 (02:00→15:30)
[2016-06-04] MEDS: LOPERAMIDE HCL 2 MG CAP PO PRN (02:41)
[2016-06-04] MEDS: NS 1,000 ML IV SCH (04:04)
[2016-06-04] MEDS: ONDANSETRON DISINTEGRATING 4 MG TAB PO SCH ×7 (04:59→22:53)
[2016-06-04] MEDS: PROMETHAZINE HCL 25 MG SUPPR PR SCH ×3 (04:59→22:52)
[2016-06-04] MEDS: PROMETHAZINE HCL 25 MG TAB PO PRN (07:00)
[2016-06-04] MEDS ORDERED: MAGNESIUM SULF 1 GM/DEXTROSE 100 ML IV ONE (07:18)
[2016-06-04 07:19] LABS: PROTIME(PATIENT) 48.1 SEC (12.0-15.0)
[2016-06-04 07:21] LABS: INR 5.08 (0.83-1.16)
[2016-06-04 09:17] LABS: ANION GAP 12 mEq/L (8-16); CALCIUM 6.3 mg/dL (8.5-10.4); CARBON DIOXIDE 18 mEq/l (22-31); CHLORIDE 101 mEq/L (97-110); CREATININE 1.2 mg/dL (0.6-1.0); GLOMERULAR FILTRATION RATE 45; GLUCOSE 96 mg/dL (70-100); MAGNESIUM 1.5 mg/dL (1.6-2.3); POTASSIUM 3.4 mEq/L (3.5-5.2); SODIUM 131 mEq/L (134-144)
[2016-06-04] MEDS: CALCIUM CARB W/VIT D 500 MG TAB PO SCH ×2 (10:00→22:53)
[2016-06-04] MEDS ORDERED: HALOPERIDOL LACT 5 MG/ML INJ IV PRN (11:51)
[2016-06-04] MEDS: PANTOPRAZOLE SODIUM 40 MG TAB PO SCH (11:51)
[2016-06-04] MEDS: predniSONE 20 MG TAB PO SCH (11:51)
[2016-06-04] MEDS: ONDANSETRON 4 MG/2 ML VIAL IVP PRN (12:19)
--- NOTE | 2016-06-04 12:41 | HOSPPROG ---
Hospitalist Progress Note Assessment/Plan: 65 yo F with hx of metastatic melanoma s/p recent XRT and chemotherapy admitted with syncope in setting of acute bilateral PE # acute bilateral PE: continued on coumadin, titrating coumadin dose # right sided heart failure: with repeat echo showing improved right heart function, continues to have BLE edema but improved on lasix # persistent n/v: continues to be a problem. Abd CT from yesterday personally reviewed and no clear etiology for this. Does have some colitis that is new but otherwise pelvic mass/adrenal mets largely the same, no bowel obstruction etc. Doing somewhat better today with addition of steroids yesterday. Continue phenergan, zofran, haldol. Consider addition of benadryl. # elizabeth: likely pre renal versus ATN, will check FENa, continue IVF and continue to monitor. UOP has been adequate. # lower extremity edema: related in large part to above as well as BLE DVT, low albumin, limited mobility. Lasix held given above, elevate legs, joe hose. # BLE DVT: in setting of above # acute hypoxic respiratory failure: in setting of PE and likely atelectasis with limited mobility since admission, was initially as low as 85% on RA but now in high 90s on 1L. Will continue to wean as able. # hyponatremia: likely hypovolemic hyponatremia in setting of n/v, lasix, poor po intake. As above, improved slightly on IVF # hypokalemia: repleting by electrolyte protocol, low 2/2 poor po intake # generalized weakness and deconditioning: continues to have significant difficulty ambulating and dizzyness when she gets up. PT/OT involved. Will dc to snf. 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 Oncology has evaluated patient while in house, they note it is too early to assess response to chemo, patient is uncertain if she would like to continue regardless. Suspect she is having progression of disease and this was discussed at length with patient and her as well as onc/palliative. They would mostly like to focus on comfort and note that if she is improving, she would consider more chemo, but at this point recognize that chemo not currently an option. # pancytopenia: 2/2 chemotherapy, improving # dispo: IP status, will dc to SNF vs hospice DNR Care plan reviewed with patients , pharmacy, CM, PT. Subjective: no significant overnight events, patient is currently feeling fatigued and still nauseated but slightly better than prior Objective: Vital Signs Temp Pulse Resp BP Pulse Ox 36.3 C 99 24 H 97/72 L 98 06/04/16 07:50 06/04/16 07:50 06/04/16 07:50 06/04/16 07:50 06/04/16 07:50 Laboratory Results 06/03/16 04:58 06/04/16 08:50 06/03/16 06/04/16 06/05/16 05:59 05:59 05:59 Intake Total 500 2280 Output Total 100 1250 Balance 400 1030 PT 48.1 SEC (12.0-15.0) H 06/04/16 06:30 INR 5.08 (0.83-1.16) H* 06/04/16 06:30 chronically ill appearing, awake alert anicteric op clear rrr, mildly tachy cta with dec bs at bases soft nt nd ble edema, bilateral calf tenderness warm dry well perfused oriented appropriate ICD10 Worksheet Patient Problems: Problems Problem Status Onset Palliative care encounter Acute Pulmonary embolism Acute Syncope Acute Abdominal discomfort Acute Pelvic mass in female Acute Vomiting Acute
--- NOTE | 2016-06-04 12:58 | SOAPPROG ---
SOAP Progress Note Assessment/Plan: Assessment/Plan: 65 yo woman w Stage IV melanoma on nivolumab/ipilimumab who p/w syncope discovered to have PE's w RV strain 1. PE - now on Coumadin but holding due to elevated INR, Echo has improved 2. Orthostatic hypotension - likely related to #1, ? adrenal insufficiency was on florinef as outpt 3. Metastatic melanoma - extensive metastasis; s/p 2 treatment of nivo/ipi Too early to assess response but pt unsure if she wants to continue CT Abd/pelvis would suggest progressin but early to assess response 4. HypoCa - Vit D deficiency w secondary hyperparathyroidism will need replacement w Vit D 50,000 IU weekly for 8 weeks 5. Deconditioning - d/c to rehab or hospice 6. Nausea and diarrhea - Nausea better w steroids, diarrhea about hte same Reviewed CT abd - mult potential causes of N/V: has increasing mesenteric adenopathy, IVC thrombus, immunotherapy toxicity+/-mild colitis No obvious obstruction Recent brain MRI before XRT Will change to IV methylpred (equivalent dosing) due to N/V If she has adrenal insufficiency, steroids should help as well 7. pancytopenia - multifactorial , monitoring 8. Dispo - if she is not getting some improvement by tomorrow, may need to discuss hospice further which she is agreeable to 06/03/16 11:57 06/04/16 12:55 06/04/16 12:58 Subjective: No acute events Still w N/V and but feels better after steroids yesterday very weak Objective: Vital Signs Temp Pulse Resp BP Pulse Ox 36.3 C 99 24 H 97/72 L 98 06/04/16 07:50 06/04/16 07:50 06/04/16 07:50 06/04/16 07:50 06/04/16 07:50 Laboratory Results 06/03/16 04:58 06/04/16 08:50 06/03/16 06/04/16 06/05/16 05:59 05:59 05:59 Intake Total 500 2280 Output Total 100 1250 Balance 400 1030 PT 48.1 SEC (12.0-15.0) H 06/04/16 06:30 INR 5.08 (0.83-1.16) H* 06/04/16 06:30 Gen - chronically ill appearing HEENT - anicteric CV - RRR Lungs - clear Abd - some guarding, TTP, BS+ ext - bilateral edema ICD10 Worksheet Patient Problems: Problems Problem Status Onset Palliative care encounter Acute Pulmonary embolism Acute Syncope Acute Abdominal discomfort Acute Pelvic mass in female Acute Vomiting Acute
[2016-06-04] MEDS ORDERED: D5W IV SCH (13:00)
[2016-06-04] MEDS ORDERED: METHYLPREDNISOLONE SOD SUCC IV SCH (13:00)
[2016-06-04] MEDS: methylPREDNISolone SOD SUCC 40 MG/ML VIAL IVP SCH ×2 (14:06→23:56)
--- NOTE | 2016-06-04 16:00 | PDPCPN ---
Palliative Care Progress Note Assessment/Plan: HPI: Kristen Rivero is a 65 yo female with PMH metastatic melanoma admitted to the hospital after syncopal episode. Found to have bilateral pulmonary embolisms started on anti coagulation with RV heart strain. Recent 2 nd cycle of cancer treatment for new met disease dx 03/2016. Also s/p whole brain radiation. Hospitalization complicated by ongoing dizziness, nausea/vomiting and weakness. Palliative care consulted for complex medical decision making. Kristen seen this morning. She states she feels the same. The nausea and abdominal pain have not changed with start of steroids. We spoke of having another family meeting tomorrow to discuss other options besides rehab and she was agreeable. Spoke with Marcus outside of the room who feels she was feeling better early in the morning but now back to her normal symptoms. He stated he is not available tomorrow but his daughter will be here. Also updated on [facility] melanoma research where Kristen wanted her body to be donated. is unsure they will be able to accept her body donation due to regulations of her not being seen at their clinic before. They will call tomorrow with any updates. Assessment: Physical: - Pain: abdominal pain due to extensive mets - tylenol PRN - oxy IR PRN - steroids will also help with any inflammatory related pain from mets - Nausea/vomiting: - Would consider scopolamine as next step for continued nausea- can worsen urinary retention as well as possible confusion - on zyprexa - encourage general diet - getting zofran anne and haldol frequently with no improvement - steroids to see if this helps with symptom management - family looking into medical marijuana - diarrhea: on occasion - Imodium PRN Emotional/psychological: doing ok has a lot of support from family. Advanced Care Planning: Is patient decisional?: Yes Code Status: DNR/DNI POA: Marcus is MDPOA Plan: Will follow up tomorrow with conversation about other options to focus on quality of life (hospice). She would qualify for the inpatient care center if wanted/needed. Subjective: I feel the same Objective: Vital Signs Temp Pulse Resp BP Pulse Ox 36.3 C 99 24 H 97/72 L 98 06/04/16 07:50 06/04/16 07:50 06/04/16 07:50 06/04/16 07:50 06/04/16 07:50 Laboratory Results 06/03/16 04:58 06/04/16 08:50 06/03/16 06/04/16 06/05/16 05:59 05:59 05:59 Intake Total 500 2280 Output Total 100 1250 Balance 400 1030 PT 48.1 SEC (12.0-15.0) H 06/04/16 06:30 INR 5.08 (0.83-1.16) H* 06/04/16 06:30 Physical Exam - Physical Exam General Appearance: alert, no apparent distress Respiratory: No respiratory distress, No accessory muscle use Skin: normal color, warm/dry Extremities: pedal edema Neuro/Psych: alert, oriented x 3 ICD10 Worksheet Patient Problems: Problems Problem Status Onset Palliative care encounter Acute Pulmonary embolism Acute Syncope Acute Abdominal discomfort Acute Pelvic mass in female Acute Vomiting Acute - ICD10 Problem Qualifiers (1) Palliative care encounter
[2016-06-04 19:46] LABS: POTASSIUM 4.1 mEq/L (3.5-5.2)
[2016-06-04] MEDS: OLANZapine 5 MG TAB PO SCH (22:53)
[2016-06-05] MEDS: ONDANSETRON DISINTEGRATING 4 MG TAB PO SCH ×3 (02:09→14:37)
[2016-06-05] MEDS: PROMETHAZINE HCL 25 MG SUPPR PR SCH ×3 (02:09→12:45)
[2016-06-05 05:53] LABS: ANION GAP 13 mEq/L (8-16); CALCIUM 6.2 mg/dL (8.5-10.4); CARBON DIOXIDE 15 mEq/l (22-31); CHLORIDE 100 mEq/L (97-110); CREATININE 1.3 mg/dL (0.6-1.0); GLOMERULAR FILTRATION RATE 41; GLUCOSE 114 mg/dL (70-100); MAGNESIUM 1.8 mg/dL (1.6-2.3); SODIUM 128 mEq/L (134-144)
[2016-06-05 05:55] LABS: PROTIME(PATIENT) 54.9 SEC (12.0-15.0)
[2016-06-05] MEDS: ONDANSETRON 4 MG/2 ML VIAL IVP PRN ×2 (08:55→13:58)
[2016-06-05] MEDS: methylPREDNISolone SOD SUCC 40 MG/ML VIAL IVP SCH (08:55)
[2016-06-05 09:21] VITALS: BP 133/81; PULSE 104; RESP 20; TEMP 97.7; O2SAT 99
[2016-06-05] MEDS: PANTOPRAZOLE SODIUM 40 MG TAB PO SCH (10:10)
[2016-06-05] MEDS: CALCIUM CARB W/VIT D 500 MG TAB PO SCH (10:11)
[2016-06-05] MEDS: HYDROmorphONE/DILAUDID 1 MG/ML SYR IVP PRN ×2 (10:15→13:51)
[2016-06-05] MEDS ORDERED: LIDOCAINE 2% JELLY 20 ML (UROJECT) UR ONE (11:34)
[2016-06-05] MEDS ORDERED: ACETAMINOPHEN 650 MG SUPP PR PRN (11:36)
[2016-06-05] MEDS ORDERED: HALOPERIDOL LACT 5 MG/ML INJ IVP PRN (11:45)
[2016-06-05] MEDS ORDERED: morphINE 10 MG/0.5 ML UDSYR PO PRN (11:45)
[2016-06-05] MEDS ORDERED: SCOPOLAMINE HYDROBROMIDE 1.5 MG PATCH TD PRN (11:45)
--- NOTE | 2016-06-05 14:21 | SOAPPROG ---
SOAP Progress Note Assessment/Plan: Assessment: 1.) Metastatic Melanoma, with progressive decline in condition with persisting N/V weakness, fatigue, and bedridden status. 2.) Palliative care planning Plan: 1.) await [facility] plans with patient and family. 2.) P's declining status indicates need for Palliative/end of life priority of care. 3.) Discharge when feasible. 06/05/16 14:18 Subjective: Pt appears sedated with family at bedside in discussion with [facility] Hospice staff member. Objective: VSS as noted here. Pt. not examined since she is in the setting of a family meeting with Hospice evaluation. Vital Signs Temp Pulse Resp BP Pulse Ox 36.5 C 104 H 20 133/81 H 99 06/05/16 08:00 06/05/16 08:00 06/05/16 08:00 06/05/16 08:00 06/05/16 08:00 Laboratory Results 06/03/16 04:58 06/05/16 05:15 06/04/16 06/05/16 06/06/16 05:59 05:59 05:59 Intake Total 2280 3230 Output Total 1250 325 Balance 1030 2905 PT 54.9 SEC (12.0-15.0) H 06/05/16 05:15 INR 6.00 (0.83-1.16) H* 06/05/16 05:15 ICD10 Worksheet Patient Problems: Problems Problem Status Onset Palliative care encounter Acute Pulmonary embolism Acute Syncope Acute Abdominal discomfort Acute Pelvic mass in female Acute Vomiting Acute
--- NOTE | 2016-06-05 14:56 | PDIAF ---
- Diagnosis Diagnosis: pulmonary embolism, metastatic melanoma Code Status: Do Not Resuscitate - Medication Management Discharge Medications: Medications to Continue on Transfer Loperamide HCl [Imodium 2 mg (*)] 4 mg PO DAILY PRN 05/17/16 [Last Taken Unknown ] Acetaminophen [Tylenol Rectal] 650 mg MT Q4HRS PRN #0 supp 06/05/16 [Last Taken Unknown] Alteplase [Cathflo Activase 2 mg (*)] 2 mg IVP PRN PRN #0 vial 06/05/16 [Last Taken Unknown] HYDROmorphone HCL [Dilaudid] 0.2 - 0.4 mg IVP Q2HRS PRN #0 syr 06/05/16 [Last Taken Unknown] Haloperidol Lactate [Haldol Injection] 0.5 - 1 mg IVP Q2HRS PRN #0 inj 06/05/16 [Last Taken Unknown] Haloperidol Lactate [Haldol Injection] 1 mg IV Q6HRS PRN #0 inj 06/05/16 [Last Taken Unknown] Ondansetron HCl Pf [Zofran 4 mg Inj (*)] 4 - 8 mg IVP Q4HRS PRN #0 vial [Last Taken Unknown] Pantoprazole Sodium [Protonix IV (*)] 40 mg IV BID #0 vial 06/05/16 [Last Taken Unknown] Promethazine HCl [Phenergan Rectal] 25 mg MT Q6HRS #0 suppr 06/05/16 [Last Taken Unknown] Scopolamine Hydrobromide [Transderm-Scop] 1.5 mg TD Q3D PRN #0 patch 06/05/16 [ Last Taken Unknown] methylPREDNISolone SOD SUCC [Solu-Medrol 40 mg (*)] 60 mg IVP BID #0 vial [Last Taken Unknown] morphINE [Roxanol 10 mg/0.5 ml oral soln (*)] 5 - 40 mg PO Q2HRS PRN #0 udsyr [Last Taken Unknown] morphINE [morphINE 2mg/ml Inj (*)] 2 - 4 mg IVP Q1HR PRN #0 syr 06/05/16 [Last Taken Unknown] Discharge Medications: Refer to the Discharge Home Medication list for PRN reason. PICC Care - Routine: Yes - Orders Services needed: Registered Nurse, Certified [employer]im[employer] Diet Recommendation: no restrictions on diet Diet Texture: Regular Texture Diet - Follow Up Care Current Providers and Referrals: Patient,NotPresent [Unknown] - As per Instructions
--- NOTE | 2016-06-05 14:56 | PDDCSUM ---
Discharge Summary Discharge Summary: Dates of service 05/17-06/05/16 Discharge diagnosis: # PE # persistent nausea/vomiting # metastatic melanoma/ovarian cancer # right sided heart failure # elizabeth # acute hypoxic respiratory failure # generalized weakness # hyponatremia Consultations: oncology, palliative care procedures performed: chest CTA, echocardiogram, abd CT, PICC placement Hospital course by problem: # acute bilateral PE: started on coumadin which had been therapeutic, now supratherapeutic. Patient has been unable to tolerate really anything by mouth and increase INR likely due to malnutrition. Given goals of care, transferring to IP hospice, will not continue AC. INR currently high. # right sided heart failure: 2/2 above, improved on serial echo # persistent n/v: continues to be a problem. Likely multifactorial with diffuse intra abdominal metastasis, intracranial mets and chronic illness. Has only improved slightly despite aggressive mgmt. DC to IP hospice for ongoing symptomatic mgmt. # elizabeth: likely ATN, UOP continues to drop off. Has had some urinary retention as well and plan for david to be placed prior to hospice for comfort. # lower extremity edema: related in large part to above as well as BLE DVT, low albumin, limited mobility. # BLE DVT: tx for PE as above # acute hypoxic respiratory failure: in setting of PE and atelectasis with limited mobility since admission, continue supplemental o2 as needed for comfort # hyponatremia: likely hypovolemic hyponatremia in setting of n/v, lasix, poor po intake. # hypokalemia: repleting by electrolyte protocol, low 2/2 poor po intake # generalized weakness and deconditioning: continues to have significant difficulty ambulating and dizzyness when she gets up. PT/OT involved. Will dc to snf. # metastatic melanoma/ovarian cancer: with extensive metastasis as above. Onc following while in house. Given patients continued decline and goals of care, she will transition to IP hospice. # pancytopenia: 2/2 chemotherapy, improving DC to IP hospice Meds: see EHR > 35 minutes spent in dc of patient, more than half in coordination of care
--- NOTE | 2016-06-05 15:55 | PDPCPN ---
Palliative Care Progress Note Assessment/Plan: HPI: Kristen Rivero is a 65 yo female with PMH metastatic melanoma admitted to the hospital after syncopal episode. Found to have bilateral pulmonary embolisms started on anti coagulation with RV heart strain. Recent 2 nd cycle of cancer treatment for new met disease dx 03/2016. Also s/p whole brain radiation. Hospitalization complicated by ongoing dizziness, nausea/vomiting and weakness. Palliative care consulted for complex medical decision making. Kristen seen this morning. She was sleeping and did not disturb her. Per daughter Livia she is still vomiting whatever she puts into her mouth. She stated she asked to be given something to help her rest. We spoke about switching to comfort care only and Livia agrees that this is what Kristen and her father Marcus want. They realize she is not going to recover and is at the end of her life. They want what time she has left to be in comfort only. Assessment: Physical: - Pain: abdominal pain due to extensive mets - tylenol PRN - dilaudid PRN - steroids will also help with any inflammatory related pain from mets - Nausea/vomiting: - Would consider scopolamine as next step for continued nausea- can worsen urinary retention as well as possible confusion - on zyprexa - encourage general diet - getting zofran anne and haldol frequently with no improvement - steroids to see if this helps with symptom management - family looking into medical marijuana - diarrhea: on occasion - Imodium PRN Emotional/psychological: doing ok has a lot of support from family. Advanced Care Planning: Is patient decisional?: Yes Code Status: DNR/DNI POA: Marcus is MDPOA Plan: [facility] for comfort care only. Subjective: sleeping Objective: Vital Signs Temp Pulse Resp BP Pulse Ox 36.5 C 104 H 20 133/81 H 99 06/05/16 08:00 06/05/16 08:00 06/05/16 08:00 06/05/16 08:00 06/05/16 08:00 Laboratory Results 06/03/16 04:58 06/05/16 05:15 06/04/16 06/05/16 06/06/16 05:59 05:59 05:59 Intake Total 2280 3230 Output Total 1250 325 Balance 1030 2905 PT 54.9 SEC (12.0-15.0) H 06/05/16 05:15 INR 6.00 (0.83-1.16) H* 06/05/16 05:15 Physical Exam - Physical Exam General Appearance: no apparent distress, other (sleeping) Respiratory: No accessory muscle use, No decreased breath sounds Skin: normal color, warm/dry Extremities: pedal edema Neuro/Psych: other (sleeping) ICD10 Worksheet Patient Problems: Problems Problem Status Onset Abdominal discomfort Acute Palliative care encounter Acute Pelvic mass in female Acute Pulmonary embolism Acute Syncope Acute Vomiting Acute - ICD10 Problem Qualifiers (1) Palliative care encounter
[2016-06-05] MEDS ORDERED: PANTOPRAZOLE SODIUM 40 MG in NS 100 ML IV SCH (21:00)
== END 2016-06-05 15:30 | disposition hospice, home (50) | DRG 175 ==
LOC: EDUNIT# → F2W 16:44 → F1N 05-22 16:51 → F2W 05-23 17:55
PROVIDERS: ADMIT Internal Medicine; ATTEND Internal Medicine
PROC: 02HV33Z Insertion of Infusion Device into Superior Vena Cava, Percutaneous Approach (ICD-10-PCS; principal; 2016-06-03)
DX: I26.99 Other pulmonary embolism without acute cor pulmonale (principal); J96.01 Acute respiratory failure with hypoxia; I82.413 Acute embolism and thrombosis of femoral vein, bilateral; I95.1 Orthostatic hypotension; N17.9 Acute kidney failure, unspecified; D61.810 Antineoplastic chemotherapy induced pancytopenia; R11.2 Nausea with vomiting, unspecified; R55 Syncope and collapse; C79.31 Secondary malignant neoplasm of brain; C79.51 Secondary malignant neoplasm of bone; C78.7 Secondary malignant neoplasm of liver and intrahepatic bile duct; C79.70 Secondary malignant neoplasm of unspecified adrenal gland; C78.89 Secondary malignant neoplasm of other digestive organs; C78.00 Secondary malignant neoplasm of unspecified lung; I50.21 Acute systolic (congestive) heart failure; N93.9 Abnormal uterine and vaginal bleeding, unspecified; E46 Unspecified protein-calorie malnutrition; R33.9 Retention of urine, unspecified; E87.6 Hypokalemia; Z51.5 Encounter for palliative care; Z99.81 Dependence on supplemental oxygen; Z85.820 Personal history of malignant melanoma of skin
CPT/HCPCS: 82024-90; 92523-GN; 97110-GP; 97116-GP; 97163-GP; 97165-GO; 97530-GO; 97530-GP; 97535-GO; C1751; G8978-GP-CL; G8979-GP-CI; G8987-GO-CK; G8988-GO-CJ; G9165-GN-CI; G9166-GN-CI; G9167-GN-CI; J0610; J0692; J1170; J1650; J2405; J3475; Q9967